=== PATIENT | male | born 1945 | race Asian ===

== ENCOUNTER 2019-04-26 06:47 | Day surgery (SDC) | payer OTHER ==
[2019-04-26 07:19] VITALS: BMI 24.2
--- NOTE | 2019-04-26 07:53 | PDOC ---
History of Present Illness - General Chief Complaint: Revisit, Lab Variance Stated Complaint: SENT BY DOCTOR Time Seen by Provider: 04/26/19 07:52 - History of Present Illness Initial Comments: 73yo M with PMH of HTN, HLD, DM, CAD s/p multiple stents, PAD s/p stents, CKD sent by his pickup driver for AV fistula placement. Patient's son at the bedside states that the last Cr was about 5. The pickup driver called the patient over the weekend and instructed him to present to the ED today. Patient's last meal was at 7am this morning. He does not have any acute complaints. Still makes urine. No fevers, chills, chest pain, or shortness of breath. PCP: Dr. Johann Deluna Veterinarian Helper: Dr. Mehdi Cartwright Past History - Past Medical History Allergies/Adverse Reactions: Allergies Allergy/AdvReac Type Severity Reaction Status Date / Time No Known Allergies Allergy Verified 04/26/19 07:18 Home Medications: Ambulatory Orders Glimepiride 2 mg PO BID 08/20/17 Amlodipine Besylate [Norvasc -] 10 mg PO DAILY tablet 08/28/17 Acetaminophen W/ Codeine #3 [Tylenol # 3 -] 1 tab PO Q6H PRN #20 tablet MDD 4 Aspirin 81 mg PO DAILY 04/26/19 Calcitriol [Calcitriol -] 0.25 mcg PO DAILY 04/26/19 Calcitriol [Calcitriol -] 0.25 mcg PO DAILY capsule 04/26/19 Calcium Acetate 667 mg PO TID 04/26/19 Famotidine [Pepcid] 20 mg PO DAILY 04/26/19 Metoprolol Succinate [Toprol XL -] 25 mg PO DAILY 04/26/19 Sodium Bicarbonate - 650 mg PO BID 04/26/19 Cardiac Disorders: Yes (stents) COPD: No Diabetes: Yes HTN: Yes Hypercholesterolemia: Yes - Surgical History Cardiac Surgery: Yes (stents x 2) - Immunization History Immunization Up to Date: No - Suicide/Smoking/Psychosocial Hx Smoking History: Never smoked Have you smoked in the past 12 months: No Information on smoking cessation initiated: No Hx Alcohol Use: No Drug/Substance Use Hx: No Substance Use Type: Alcohol Review of Systems - Review of Systems Comments:: Constitutional: no fever, no chills HEENT: no throat pain, no dysphagia Cardiovascular: no chest pain, no palpitations Respiratory: no cough, no shortness of breath Gastrointestinal: no abdominal pain, no nausea Genitourinary: no dysuria, no frequency Musculoskeletal: no myalgia, no arthralgia Skin: no rash, no itching Neurologic: no headache, no weakness *Physical Exam - Vital Signs Last Vital Signs Temp Pulse Resp BP Pulse Ox 97.9 F 69 18 159/69 100 04/26/19 07:16 04/26/19 07:16 04/26/19 07:16 04/26/19 07:16 04/26/19 07:16 - Physical Exam Comments: General: Awake, alert, and fully oriented, in no acute distress Head: No signs of trauma Eyes: EOMI, sclera anicteric ENT: Moist mucus membranes Neck: Normal ROM, supple Lungs: Lungs clear, Normal breath sounds Cardio: Regular rhythm, S1 and S2 present Abdomen: Soft, nontender Extremities: Normal range of motion, Distal pulses present SKIN: Warm, Dry, normal turgor Neurologic: Cranial nerves II through XII grossly intact. Normal speech ED Treatment Course - LABORATORY CBC & Chemistry Diagram: 04/26/19 08:13 04/26/19 08:13 Medical Decision Making - Medical Decision Making 73yo M with PMH of HTN, HLD, DM, CAD s/p multiple stents, PAD s/p stents, CKD sent by his pickup driver for AV fistula placement. Pre-op orders placed Patient is not fluid overloaded, per exam 04/26/19 07:53 Dr. Kailash Alvarez spoke with Dr. Ho. Made aware patient is here. Likely 2pm for procedure If labs indicate patient needs to be dialyzed, plan for admission 04/26/19 08:49 Dr. Alvarez had patient admitted 04/26/19 09:09 CBC WBC 8.0 K/mm3 (4.0-10.0) 04/26/19 08:13 RBC 3.45 M/mm3 (4.00-5.60) L 04/26/19 08:13 Hgb 10.0 GM/dL (11.7-16.9) L 04/26/19 08:13 Hct 30.1 % (35.4-49) L 04/26/19 08:13 MCV 87.1 fl (80-96) 04/26/19 08:13 MCH 29.0 pg (25.7-33.7) 04/26/19 08:13 MCHC 33.3 g/dl (32.0-35.9) 04/26/19 08:13 RDW 14.8 % (11.9-15.9) 04/26/19 08:13 Plt Count 159 K/MM3 (134-434) 04/26/19 08:13 MPV 8.2 fl (7.5-11.1) 04/26/19 08:13 Absolute Neuts (auto) 4.5 K/mm3 (1.5-8.0) 04/26/19 08:13 Neutrophils % 56.2 % (42.8-82.8) 04/26/19 08:13 Lymphocytes % 19.3 % (8-40) 04/26/19 08:13 Monocytes % 8.9 % (3.8-10.2) 04/26/19 08:13 Eosinophils % 14.3 % (0-4.5) H 04/26/19 08:13 Basophils % 1.3 % (0-2.0) 04/26/19 08:13 Nucleated RBC % 0 % (0-0) 04/26/19 08:13 No leukocytosis Anemia, however hgb is at baseline CMP Sodium 140 mmol/L (136-145) 04/26/19 08:13 Potassium 4.4 mmol/L (3.5-5.1) 04/26/19 08:13 Chloride 109 mmol/L (98-107) H 04/26/19 08:13 Carbon Dioxide 22 mmol/L (21-32) 04/26/19 08:13 Anion Gap 9 MMOL/L (8-16) 04/26/19 08:13 BUN 58.2 mg/dL (7-18) H 04/26/19 08:13 Creatinine 8.5 mg/dL (0.55-1.3) H* 04/26/19 08:13 Est GFR (CKD-EPI)AfAm 6.48 04/26/19 08:13 Est GFR (CKD-EPI)NonAf 5.59 04/26/19 08:13 POC Glucometer 88 UNITS (80-120) 04/26/19 18:15 Random Glucose 178 mg/dL (74-106) H 04/26/19 08:13 Calcium 8.2 mg/dL (8.5-10.1) L 04/26/19 08:13 Total Bilirubin 0.4 mg/dL (0.2-1) 04/26/19 08:13 AST 28 U/L (15-37) 04/26/19 08:13 ALT 39 U/L (13-61) 04/26/19 08:13 Alkaline Phosphatase 183 U/L (45-117) H 04/26/19 08:13 Total Protein 7.0 g/dl (6.4-8.2) 04/26/19 08:13 Albumin 3.5 g/dl (3.4-5.0) 04/26/19 08:13 Electrolytes unremarkable Cr elevated, as expected for this patient with CKD CXR with "no acute chest pathology" EKG: rate 63, QTc 464, NSR, LVH *DC/Admit/Observation/Transfer Diagnosis at time of Disposition: CKD stage 4 due to type 2 diabetes mellitus - Discharge Dispostion Condition at time of disposition: Guarded Decision to Admit order: Yes - Prescriptions - Referrals - Patient Instructions - Post Discharge Activity
--- NOTE | 2019-04-26 08:23 | PDOC ---
Attending Attestation - Resident Resident Name: Zakia Menjivar - ED Attending Attestation I have performed the following: I have examined & evaluated the patient, The case was reviewed & discussed with the resident, I agree w/resident's findings & plan, Exceptions are as noted - HPI HPI: 04/26/19 08:23 73y M hx of of CAD, dm, htn, hl, ckd, sent by renal for evaluation for possible fistula placement. pt without complaints including sob, cp, fever/chills, abd pain, cp, leg swelling or ohter complaints. GENERAL: The patient is awake, alert, and fully oriented, Nontoxic - in no acute distress. HEAD: Normocephalic, atraumatic. EYES: extraocular movements intact, sclera anicteric, conjunctiva clear. ENT: Normal voice, Moist mucous membranes. NECK: Normal range of motion, supple LUNGS: Breath sounds equal, clear to auscultation bilaterally. No wheezes, no rhonchi, no rales. HEART: Regular rate and rhythm, normal S1 and S2 without murmur, rub or gallop. ABDOMEN: Soft, nontender, No guarding, no rebound. No CVA tenderness EXTREMITIES: Normal range of motion, trace pitting edema b/l NEUROLOGICAL: No facial assymetry, Normal speech, moving all 4 extremities spontaneously and symmetrically PSYCH: Normal mood, normal affect. SKIN: Warm, Dry, normal turgor, will obtain labs will dw vascular surgery 04/26/19 12:23 labs reviewd cr elevated as expected k wnl will admit - Physicial Exam PE: 04/27/19 13:55 see above - Medical Decision Making 04/27/19 13:55 see above Heart Score/ECG Review - ECG Impressions Comment:: 04/26/19 08:57 Twelve-lead EKG was performed and reviewed by me. There is normal sinus rhythm with a normal rate. rate of 63 left ventricular hypertropy
[2019-04-26 08:58] LABS: BASO % 1.3 % (0-2.0); EOS % 14.3 % (0-4.5); HEMATOCRIT 30.1 % (35.4-49); LYMPH % 19.3 % (8-40); MCHC 33.3 g/dl (32.0-35.9); MEAN CELL VOLUME 87.1 fl (80-96); MEAN PLT VOLUME 8.2 fl (7.5-11.1); MONO % 8.9 % (3.8-10.2); NEUT % 56.2 % (42.8-82.8); PLATELET COUNT 159 K/MM3 (134-434); RBC 3.45 M/mm3 (4.00-5.60); RDW 14.8 % (11.9-15.9)
[2019-04-26 08:59] LABS: INR 1.01 (0.83-1.09); PROTHROMBIN TIME (PATIENT) 11.9 SEC (9.7-13.0)
[2019-04-26 09:02] LABS: ACTIVATED PTT 34.4 SECONDS (25.2-36.5)
[2019-04-26 09:10] LABS: ALBUMIN 3.5 g/dl (3.4-5.0); BILIRUBIN,TOTAL 0.4 mg/dL (0.2-1); BLOOD UREA NITROGEN 58.2 mg/dL (7-18); CALCIUM 8.2 mg/dL (8.5-10.1); POTASSIUM 4.4 mmol/L (3.5-5.1)
[2019-04-26 09:15] LABS: CREATININE 8.5 mg/dL (0.55-1.3)
[2019-04-26 09:18] LABS: EPI CELLS 1.4 /HPF (0-5/HPF); HYALINE CASTS 4 /lpf (0-8); URINE APPEARANCE CLEAR; URINE BACTERIA 2.4 /hpf (NEGATIVE); URINE BILIRUBIN NEGATIVE (NEGATIVE); URINE COLOR YELLOW; URINE GLUCOSE (UA) 3+ (NEGATIVE); URINE KETONE NEGATIVE (NEGATIVE); URINE LEUK ESTERASE NEGATIVE (NEGATIVE); URINE NITRITE NEGATIVE (NEGATIVE); URINE PROTEIN 3+ (NEGATIVE); URINE RBC 2 /hpf (0-4); URINE UROBILINOGEN 0.2 mg/dL (0.2-1.0); URINE WBC 1 /hpf (0-5)
--- NOTE | 2019-04-26 11:09 | EKG ---
Test Reason : Blood Pressure : / mmHG Vent. Rate : 063 BPM Atrial Rate : 063 BPM P-R Int : 146 ms QRS Dur : 080 ms QT Int : 454 ms P-R-T Axes : 060 -20 100 degrees QTc Int : 464 ms NORMAL SINUS RHYTHM POSSIBLE LEFT ATRIAL ENLARGEMENT LEFT VENTRICULAR HYPERTROPHY ABNORMAL ECG WHEN COMPARED WITH ECG OF 22-AUG-2017 22:07, COMPARED TO EKG NO SIGNIFICANT CHANGE IS FOUND Confirmed by JOSE RAFAEL PARIS, BRIEN ([id number]) on 04/26/2019 11:08:53 AM Referred By: Confirmed By:BRIEN MANTILLA MD
--- NOTE | 2019-04-26 11:39 | CONSULT ---
Consult - text type - Consultation Consultation Note: Renal consult for CKD stage 5 This is a 73 year old [place] gentleman with history of CKD stage 5 (eGFR 5), Hypertension, DM, CAD who presents for dialysis access placement. Pt was seen in the office last week, eGFR declined to 5 and was agreeable to starting dialysis this week. Pt now however does not want to start dialyiss via tunneled catheter. Denies any acute complaints, no sob, cp, abd pain, fever, chills, N/V/ D, metallic taste in the mouth. Denies any leg swelling, deins any dysuria. For OR today for AVF placement. PMHx; as above Allergies: NKDA Family Hx: NC Social Hx: No T/A/d ROS: as per HPI, all other pertinent ros negative Home Medications Medication Instructions Recorded Glimepiride 2 mg PO BID 08/20/17 Amlodipine Besylate [Norvasc -] 10 mg PO DAILY tablet 08/28/17 Aspirin 81 mg PO DAILY 04/26/19 Calcitriol [Rocaltrol -] 0.25 mcg PO DAILY 04/26/19 Calcium Acetate 667 mg PO TID 04/26/19 Famotidine [Pepcid] 20 mg PO DAILY 04/26/19 Metoprolol Succinate [Toprol XL -] 25 mg PO DAILY 04/26/19 Sodium Bicarbonate - 650 mg PO BID 04/26/19 Vital Signs Temperature 97.9 F 04/26/19 07:16 Pulse Rate 64 04/26/19 10:22 Respiratory Rate 18 04/26/19 10:22 Blood Pressure 166/74 04/26/19 10:22 O2 Sat by Pulse Oximetry (%) 100 04/26/19 10:22 Intake & Output 04/23/19 04/24/19 04/25/19 04/26/19 23:59 23:59 23:59 23:59 Weight 68.039 kg NAD awake and alert neck supple, no JVD RRR, no M/R CTA soft NT/ND No LE edema no asterxisis CBC, BMP 04/26/19 08:13 04/26/19 08:13 73 year old [place] gentleman with history of CKD stage 5 (eGFR 5), Hypertension , DM, CAD who presents for dialysis access placement. Pt was seen in the office last week, eGFR declined to 5 and was agreeable to starting dialysis this week. #CKD stage 5 not yet on dialyiss #DM #Hypertension #CKD related Anemia #AVF placement Pt at this time does not want tunneled catheter placement but will have AVF placement risks of deferring dialysis given his low eGFR was explained to him and his family, and they expressed understanding given there is no hyperkalemia, acidosis or overt uremia no emergent indication for HD at this time explained to the patient and family what are the symptoms of uremia/ hyperkalmeia and if they experience these symptoms they should come to ER case discussed with vascular surgery who will place AVF this afternoon took BP meds at home prior to coming in, trend BP inhouse Hgb stable, no need for transfusion can be discharged s/p procedure today with close office follow up Thank you Mehdi Marinelli DO
[2019-04-26] MEDS ORDERED: HEPARIN NA (PORCINE) 5,000 UNITS/ML 1ML VIAL ONE (14:01)
[2019-04-26] MEDS ORDERED: PAPAVERINE HCL 30 MG/1 ML 10 ML VIAL NR ONE (14:04)
[2019-04-26] MEDS ORDERED: LIDOCAINE HCL 1%, 10 MG/ML (20ML VIAL) ONE (14:04)
--- NOTE | 2019-04-26 14:04 | HP ---
Admitting History and Physical - Admission History of Present Illness: The patient is a 73 yo male who presents today for surgery, left arm arteriovenous fistula creation. The patient states that he has never had any dialysis sessions. He has had progressive kidney failure over the past 2 years and is a patient of Dr. Chay Harding. He denies any CP/SOB,Nausea or emesis. No fevers. He has no complaints of swelling to his lower extremities. The patient remains npo for surgery. He denies any difficulties with ambulation, numbness or tingling to his lower extremities, no h/o of ulcers/wounds to LE. The patient is right hand dominant. 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 Cardiovascular: Yes: CAD, HTN Pulmonary: No: Asthma, Sleep Apnea Gastrointestinal: Yes: Other (had colonscopy approx 6 to 7 years ago) Renal/: Yes: Renal Inusuff, BPH Heme/Onc: No: Bleeding Disorder (s/p cardiac stents several years ago s/p Right leg stent) Endocrine: Yes: Diabetes Mellitus - Smoking History Smoking history: Former smoker (Quit 5 years ago) Have you smoked in the past 12 months: No - Alcohol/Substance Use Hx Alcohol Use: No <Cleo Rosa - Last Filed: 04/26/19 15:00> Home Medications <Cleo Rosa - Last Filed: 04/26/19 15:00> <Jc Ho - Last Filed: 04/26/19 16:46> - Allergies Allergies/Adverse Reactions: Allergies Allergy/AdvReac Type Severity Reaction Status Date / Time No Known Allergies Allergy Verified 04/26/19 07:18 - Home Medications Home Medications: Ambulatory Orders Glimepiride 2 mg PO BID 08/20/17 Amlodipine Besylate [Norvasc -] 10 mg PO DAILY tablet 08/28/17 Acetaminophen W/ Codeine #3 [Tylenol # 3 -] 1 tab PO Q6H PRN #20 tablet MDD 4 Aspirin 81 mg PO DAILY 04/26/19 Calcitriol [Calcitriol -] 0.25 mcg PO DAILY 04/26/19 Calcitriol [Calcitriol -] 0.25 mcg PO DAILY capsule 04/26/19 Calcium Acetate 667 mg PO TID 04/26/19 Famotidine [Pepcid] 20 mg PO DAILY 04/26/19 Metoprolol Succinate [Toprol XL -] 25 mg PO DAILY 04/26/19 Sodium Bicarbonate - 650 mg PO BID 04/26/19 Review of Systems - Review of Systems Constitutional: denies: Chills, Fever Neck: denies: Decreased ROM, Pain on Movement Cardiovascular: denies: Chest Pain, Edema, Palpitations, Shortness of Breath Respiratory: denies: Cough, SOB Gastrointestinal: denies: Abdominal Pain, Nausea Genitourinary: denies: Burning, Dysuria, Hematuria Musculoskeletal: denies: Decreased ROM, Extremity Pain Integumentary: denies: Blister, Bruising Neurological: denies: Change in LOC, Headache, Seizure Hematology/Lymphatic: denies: Easily Bruised, Excessive Bleeding <Metzen,Cleo - Last Filed: 04/26/19 15:00> Physical Examination Vital Signs: Vital Signs Temperature 97.5 F L 04/26/19 10:00 Pulse Rate 64 04/26/19 10:22 Respiratory Rate 18 04/26/19 10:22 Blood Pressure 166/74 04/26/19 10:22 O2 Sat by Pulse Oximetry (%) 100 04/26/19 10:22 Constitutional: Yes: Well Nourished, No Distress, Calm Eyes: Yes: WNL, Conjunctiva Clear, EOM Intact HENT: Yes: WNL, Atraumatic, Normocephalic Neck: Yes: WNL, Supple, Trachea Midline Cardiovascular: Yes: WNL, Regular Rate and Rhythm Respiratory: Yes: WNL, Regular, CTA Bilaterally Gastrointestinal: Yes: WNL, Normal Bowel Sounds, Soft Extremities: No: Calf Tenderness Edema: No Peripheral Pulses WNL: Yes Peripheral Pulses: Left Radial: 2+, Right Radial: 2+, Left Doralis Pedis: 2+, Right Dorsalis Pedis: 2+, Left Femoral: 2+, Right Femoral: 2+ Neurological: Yes: WNL, Alert, Oriented Psychiatric: Yes: WNL, Alert, Oriented Labs: CBC, BMP Laboratory Tests 04/26/19 04/26/19 04/26/19 08:13 08:13 08:13 WBC 8.0 Hgb 10.0 L Hct 30.1 L Plt Count 159 PT with INR 11.90 INR 1.01 PTT (Actin FS) 34.4 Sodium 140 Potassium 4.4 Chloride 109 H Carbon Dioxide 22 Anion Gap 9 BUN 58.2 H Creatinine 8.5 H* Total Bilirubin 0.4 AST 28 ALT 39 Alkaline Phosphatase 183 H Total Protein 7.0 Albumin 3.5 Urine Color Urine Appearance Urine pH Ur Specific [place] Urine Protein Urine Glucose (UA) Urine Ketones Urine Blood Urine Nitrite Urine Bilirubin Urine Urobilinogen Ur Leukocyte Esterase 04/26/19 09:00 WBC Hgb Hct Plt Count PT with INR INR PTT (Actin FS) Sodium Potassium Chloride Carbon Dioxide Anion Gap BUN Creatinine Total Bilirubin AST ALT Alkaline Phosphatase Total Protein Albumin Urine Color Yellow Urine Appearance Clear Urine pH 7.0 Ur Specific [place] 1.016 Urine Protein 3+ H Urine Glucose (UA) 3+ H Urine Ketones Negative Urine Blood 1+ H Urine Nitrite Negative Urine Bilirubin Negative Urine Urobilinogen 0.2 Ur Leukocyte Esterase Negative <Cleo Rosa - Last Filed: 04/26/19 15:00> Vital Signs: Vital Signs Temperature 97.5 F L 04/26/19 14:09 Pulse Rate 57 L 04/26/19 14:09 Respiratory Rate 18 04/26/19 14:09 Blood Pressure 149/79 04/26/19 14:09 O2 Sat by Pulse Oximetry (%) 100 04/26/19 10:22 Labs: CBC, BMP 04/26/19 08:13 04/26/19 08:13 <Jc Ho - Last Filed: 04/26/19 16:46> Imaging - Results EKG: Image Reviewed (NSR rate, 63) <Cleo Rosa - Last Filed: 04/26/19 15:00> Assessment/Plan 73 yo male with ESRD plan for creation of left AVF today He remains npo for his surgery Left arm limb precautions D/w Dr. Ho Admission orders completed <Cleo Rosa - Last Filed: 04/26/19 15:00> Patient evaluated in office. Planned AV fistula left arm, now felt to need more urgent access. Sent to ER b Dr. Cartwright for Permacath but patient has refused. Will proceed with AV fistula creation today. <Jc Ho - Last Filed: 04/26/19 16:46>
[2019-04-26] MEDS ORDERED: PROPOFOL 20 ML ONE (15:14)
[2019-04-26] MEDS ORDERED: MIDAZOLAM HCL 2 MG/2 ML SINGLE DOSE VIAL ONE (15:14)
[2019-04-26] MEDS ORDERED: ACETAMINOPHEN 500 MG TABLET (FP) PO PRN (15:28)
[2019-04-26] MEDS ORDERED: ONDANSETRON 4 MG/2 ML VIAL IVPUSH PRN (15:28)
[2019-04-26] MEDS ORDERED: LIDOCAINE HCL 1%, 10 MG/ML (20ML VIAL) INF ONE (15:37)
[2019-04-26] MEDS ORDERED: GLIMEPIRIDE 2 MG TABLET (FP) PO SCH (16:30)
[2019-04-26] MEDS ORDERED: INSULIN SLIDING SCALE (NOVOLOG) 1 VIAL SQ SCH (16:30)
--- NOTE | 2019-04-26 16:48 | OP ---
Operative Note - Note: Operative Date: 04/26/19 Pre-Operative Diagnosis: CKD stage 5 Operation: Creation AV fistula left arm, basilic vein 1st stage Findings: Cephalic vein proximal to elbow < 2 mm' Basilic vein 4 mm in upper arm. Post-Operative Diagnosis: Same as Pre-op Surgeon: Jc Ho Area Development Consultant: Cleo Rosa Anesthesiologist/HVAC SERVICE TECH: Jamey Gotti Anesthesia: Fractional Estimated Blood Loss (mls): 20
[2019-04-26] MEDS ORDERED: DESMOPRESSIN ACETATE 4 MCG/ML AMP IVPB ONE (16:51)
--- NOTE | 2019-04-26 17:05 | SURG ---
Surgery Bolt Sorter Note Bolt Sorter: Cleo Rosa PA-C Date of Service: 04/26/19 Diagnosis: CKD stage 5 Procedure: Creation AV fistula left arm, basilic vein 1st stage I was present for the entirety of the operative procedure. For further detail, please refer to operative report. Visit type - Case Type Case Type: ED Admission - Emergency Emergency Visit: Yes Care time: The patient presented to the Emergency Department on the above date and was hospitalized for further evaluation of their emergent condition. - New patient This patient is new to me today: Yes Date on this admission: 04/26/19
[2019-04-26] MEDS ORDERED: CALCIUM ACETATE 667 MG CAPSULE (FP) PO SCH (17:30)
[2019-04-26] MEDS ORDERED: DESMOPRESSIN ACETATE 20 MCG in SODIUM CHLORIDE 50 ML IVPB ONE (17:30)
[2019-04-26 18:45] VITALS: BP 148/68; PULSE 56; TEMP 97.4
[2019-04-26] MEDS ORDERED: PT OWN MED DRAWER 7, Y5N ONE (19:22)
[2019-04-26] MEDS ORDERED: SODIUM BICARBONATE 650 MG TABLET PO SCH (22:00)
[2019-04-27] MEDS ORDERED: CALCITRIOL 0.25 MCG CAPSULE (FP) PO SCH (10:00)
[2019-04-27] MEDS ORDERED: ASPIRIN 81 MG CHEWABLE TABLETS PO SCH (10:00)
[2019-04-27] MEDS ORDERED: amLODIPine BESYLATE 10 MG TABLET (FP) PO SCH (10:00)
[2019-04-27] MEDS ORDERED: metoPROLOL SUCCINATE 25 MG TAB.SR.24H (FP) PO SCH (10:00)
[2019-04-27] MEDS ORDERED: RANITIDINE HCL 150 MG TABLET (FP) PO SCH (10:00)
--- NOTE | 2019-04-28 20:24 | OP ---
DATE OF OPERATION: 04/26/2019 SURGEON: Jc Ho MD ORNAMENTAL BRICK INSTALLER: BASHIR Santacruz PROCEDURE: Creation of arteriovenous fistula, left arm, brachial artery to basilic vein, first stage. PREOPERATIVE DIAGNOSIS: Renal failure. POSTOPERATIVE DIAGNOSIS: Renal failure. ANESTHESIA: Fractional. ANESTHESIOLOGIST: Kendrick Gotti MD OPERATIVE FINDINGS: The basilic vein in the upper arm was approximately 4 mm in diameter. There was a high bifurcation of the brachial artery with the larger branch at the elbow deep to the superficial. DESCRIPTION OF PROCEDURE: The patient was brought to the operating room. The left arm was prepped with ChloraPrep. Timeout was performed. Next, 1% lidocaine was infiltrated in the skin over the basilic vein at the elbow crease. Skin incision was made and subcutaneous tissues divided with cautery. The vein was mobilized from its bed. All side branches were ligated with silk ties and divided. The vein was ligated distally and incised. It was distended with heparin and papaverine solution. Number 5 and number 8 feeding tubes were passed proximally without resistance. The brachial artery was then exposed through an adjacent incision. This was carried down to the subcutaneous tissues. A smaller ulnar branch was retracted laterally, and the deeper artery was mobilized and secured with vessel loops. The vein was then freed and passed through a short subcutaneous tunnel to lie next to the artery. The artery was occluded with vessel loops and opened on exposed surface to 6-mm arteriotomy. The end of the vein was spatulated and anastomosed to the side of the artery with running suture of 6-0 Prolene. Prior to completion of the suture line, the artery was allowed to back bleed and flush, and the vein was flushed with heparin solution. Suture line was completed, and the vessels were released. There was good flow through the anastomosis with a palpable thrill in the vein. Bleeding from the suture line was controlled with Surgicel. When hemostasis was achieved, the wound was irrigated and closed with interrupted suture of 3-0 Vicryl and skin santosh. Sterile dressings were applied, and the patient was taken to the recovery room in stable condition. Tami PARHAM/[id number]
== END 2019-04-26 20:00 | disposition home or self-care (01) ==
LOC: JER 06:47 → JASUSAT 09:01 → J5S 10:27 → JASUSAT 20:00
PROVIDERS: ATTEND Surgery
PROC: 03180ZD Bypass Left Brachial Artery to Upper Arm Vein, Open Approach (ICD-10-PCS; principal; 2019-04-26 13:15)
DX: I12.0 Hypertensive chronic kidney disease with stage 5 chronic kidney disease or end stage renal disease (principal); E11.22 Type 2 diabetes mellitus with diabetic chronic kidney disease; N18.6 End stage renal disease; Z79.4 Long term (current) use of insulin
CPT/HCPCS: 36415; 71045-TC-FY; 80053; 81003; 82962; 85025; 85610; 85730; 86850; 86900; 86901; 87086; 93005; 93010; 94760; 99284-25; J1644; J2597

== ENCOUNTER 2019-06-24 13:28 | Day surgery (SDC) | payer OTHER ==
[2019-06-23 16:27] VITALS: BMI 23.5
[2019-06-24] MEDS ORDERED: POVIDONE-IODINE OINTMENT 10% - 28.4 GM TUBE ONE (13:33)
[2019-06-24 13:59] VITALS: BP 147/74; PULSE 66; TEMP 97.7
== END 2019-06-24 14:29 | disposition home or self-care (01) ==
LOC: JASU-SURG 13:28
PROVIDERS: ATTEND Surgery
DX: Z53.8 Procedure and treatment not carried out for other reasons (principal)
CPT/HCPCS: 82962

== ENCOUNTER 2019-06-28 14:47 | Day surgery (SDC) | payer OTHER ==
[2019-06-25 15:52] VITALS: BMI 23.5
--- NOTE | 2019-06-28 14:12 | HP ---
History & Physical Update - History History: No Change - Physical Physical: No Change - Assessment Assessment: No Change - Plan Plan: No Change (For creation AV fistula)
[2019-06-28] MEDS ORDERED: HEPARIN NA (PORCINE) 5,000 UNITS/ML 1ML VIAL ONE (15:06)
[2019-06-28] MEDS ORDERED: PAPAVERINE HCL 30 MG/1 ML 10 ML VIAL NR ONE (15:06)
[2019-06-28] MEDS ORDERED: LIDOCAINE HCL 1%, 10 MG/ML (20ML VIAL) ONE ×3 (15:07→16:54)
[2019-06-28] MEDS ORDERED: POVIDONE-IODINE OINTMENT 10% - 28.4 GM TUBE ONE (15:07)
[2019-06-28] MEDS ORDERED: MIDAZOLAM HCL 2 MG/2 ML SINGLE DOSE VIAL ONE (15:42)
[2019-06-28] MEDS ORDERED: PROPOFOL 20 ML ONE (15:42)
[2019-06-28] MEDS ORDERED: ceFAZolin SODIUM 1 GM VIAL ONE (15:44)
[2019-06-28] MEDS ORDERED: SODIUM CHLORIDE 0.9% P/F 10 ML VIAL IJ ONE (15:44)
[2019-06-28] MEDS ORDERED: LIDOCAINE HCL/PF 2% SDV 5ML VIAL ONE (15:44)
[2019-06-28] MEDS ORDERED: METOPROLOL TARTRATE 5 MG/5 ML VIAL ONE (15:59)
[2019-06-28] MEDS ORDERED: PROMETHAZINE HCL 25 MG/1 ML VIAL IVPUSH PRN (16:03)
[2019-06-28] MEDS ORDERED: ONDANSETRON 4 MG/2 ML VIAL IVPUSH PRN (16:03)
[2019-06-28] MEDS ORDERED: SODIUM CHLORIDE 1,000 ML IV SCH (16:15)
[2019-06-28] MEDS ORDERED: LIDOCAINE HCL 1%, 10 MG/ML (20ML VIAL) PNB ONE ×2 (16:19)
--- NOTE | 2019-06-28 17:15 | OP ---
Operative Note - Note: Operative Date: 06/28/19 Pre-Operative Diagnosis: Renal failure Operation: Revision AV fistula left arm Findings: Patent brachial-basilic AVF Post-Operative Diagnosis: Same as Pre-op Surgeon: Jc Ho Sensor Specialist: Cleo Rosa Anesthesiologist/SAVINGS COUNSELOR: Jordi Leggett Anesthesia: Fractional Estimated Blood Loss (mls): 20
--- NOTE | 2019-06-28 17:39 | SURG ---
Surgery Cool Roofing Installer Note Cool Roofing Installer: Cleo Rosa PA-C Date of Service: 06/28/19 Diagnosis: : Renal failure Procedure: Revision AV fistula left arm I was present for the entirety of the operative procedure. For further detail, please refer to operative report. Visit type - Case Type Case Type: Scheduled - Emergency Emergency Visit: No - New patient This patient is new to me today: Yes Date on this admission: 06/28/19
[2019-06-28 18:39] VITALS: TEMP 97.7
[2019-06-28 19:52] VITALS: BP 150/80; PULSE 74
[2019-06-28] MEDS ORDERED: INSULIN SLIDING SCALE (NOVOLOG) 1 VIAL SQ SCH (22:00)
--- NOTE | 2019-07-01 10:15 | OP ---
DATE OF OPERATION: 06/28/2019 SURGEON: Jc Ho MD CAR SALTER: BASHIR Santacruz PROCEDURE: Revision of left arm arteriovenous fistula. PREOPERATIVE DIAGNOSIS: Renal failure. POSTOPERATIVE DIAGNOSIS: Renal failure. ANESTHESIA: Fractional. ANESTHESIOLOGIST: Jordi Leggett CRNA OPERATIVE FINDINGS: The left brachial basilic fistula was patent with a diameter of between 5-6 mm. OPERATIVE PROCEDURE: Following routine patient identification with site and side verification, intravenous sedation was established. The left arm was prepped with ChloraPrep. Time-out was performed. Lidocaine 1% was infiltrated subcutaneously over the basilic vein, which had been mapped preoperatively with duplex imaging. Incision was made over the vein from the distal upper arm to the axilla. Cautery was used to hemostasis. The vein was exposed for the length of the incision with sharp dissection with care not to damage the musculocutaneous nerve, which ran alongside the vein. The vein was mobilized from its bed, and all side branches were ligated with silk ties and divided. The vein was elevated out of the wound and wrapped in moist gauze. Additional lidocaine with infiltrated over the anterior aspect of the arm and a skin flap raised. The vein was placed at the apex of the skin flap and sutured in place with interrupted sutures of 3-0 Vicryl with care not to constrict the vein. The muscle fascia was then approximated with 3-0 Vicryl and the subcutaneous tissues with the same. Skin was closed with santosh. Sterile dressing was applied. The patient was taken to the recovery room in stable condition. Tami PARHAM/[id number]
== END 2019-06-28 19:30 | disposition home or self-care (01) ==
LOC: JASU-SURG 14:47
PROVIDERS: ATTEND Surgery
PROC: 03180ZD Bypass Left Brachial Artery to Upper Arm Vein, Open Approach (ICD-10-PCS; principal; 2019-06-28 16:00)
DX: I12.0 Hypertensive chronic kidney disease with stage 5 chronic kidney disease or end stage renal disease (principal); E11.22 Type 2 diabetes mellitus with diabetic chronic kidney disease; N18.6 End stage renal disease; Z99.2 Dependence on renal dialysis
CPT/HCPCS: 82962; 94760; J1644

== ENCOUNTER 2019-07-07 08:14 | Inpatient (IN) | payer OTHER ==
[2019-07-07] MEDS ORDERED: NITROGLYCERIN 25MG/D5W 250ML 25 MG/250 ML ML IVPB ONE (08:56)
[2019-07-07] MEDS ORDERED: NITROGLYCERIN 25MG/D5W 250ML 25 MG/250 ML ML IVPB SCH (09:00)
[2019-07-07 09:14] LABS: BASO % 1.3 % (0-2.0); EOS % 8.3 % (0-4.5); HEMATOCRIT 21.6 % (35.4-49); LYMPH % 7.9 % (8-40); MCH 28.8 pg (25.7-33.7); MCHC 32.4 g/dl (32.0-35.9); MEAN CELL VOLUME 88.9 fl (80-96); MEAN PLT VOLUME 7.9 fl (7.5-11.1); MONO % 8.3 % (3.8-10.2); NEUT % 74.2 % (42.8-82.8); PLATELET COUNT 189 K/MM3 (134-434); RBC 2.43 M/mm3 (4.00-5.60); WHITE BLOOD COUNT 8.4 K/mm3 (4.0-10.0)
[2019-07-07 09:24] LABS: INR 1.06 (0.83-1.09); PROTHROMBIN TIME (PATIENT) 12.5 SEC (9.7-13.0)
[2019-07-07 09:37] LABS: ALBUMIN 3.4 g/dl (3.4-5.0); BILIRUBIN,TOTAL 0.5 mg/dL (0.2-1); BLOOD UREA NITROGEN 76.4 mg/dL (7-18); CALCIUM 8.5 mg/dL (8.5-10.1); POTASSIUM 5.7 mmol/L (3.5-5.1); TOT PROT 6.9 g/dl (6.4-8.2)
[2019-07-07] MEDS ORDERED: FUROSEMIDE 40 MG/4 ML INJECTABLE VIAL IVPUSH ONE (10:06)
--- NOTE | 2019-07-07 10:40 | PDOC ---
Documentation entered by Ann Cerrato SCRIBE, acting as scribe for Tommy Santillan MD. Tommy Santillan MD: This documentation has been prepared by the Blossom gill Sammi, SCRIBE, under my direction and personally reviewed by me in its entirety. I confirm that the documentation accurately reflects all work, treatment, procedures, and medical decision making performed by me. History of Present Illness - General Stated Complaint: Shortness of Breath Time Seen by Provider: 07/07/19 08:19 - History of Present Illness Initial Comments: 07/07/19 08:54 The patient is a 73 year old male with a PMH of HTN, DM, high cholesterol, heart disease, CKD, who presents with progressive worsening SOB since last night , worse on exertion. Patient had fistula placed to left upper arm [address] Ho. He was also informed by Dr. Cartwright that he has a Hb of 6.5. Denies chest pain. Denies fever or cough. EMS reports putting administering 3 sublingual nitroglycerin and placed the patient on CPAP. They note BPs of 180/90 & 165/78. PCP: Johann Deluna Work Car Operator: Mehdi Cartwright Past History - Past Medical History Allergies/Adverse Reactions: Allergies Allergy/AdvReac Type Severity Reaction Status Date / Time No Known Allergies Allergy Verified 07/07/19 08:20 Home Medications: Ambulatory Orders Glimepiride 2 mg PO BID 08/20/17 Amlodipine Besylate [Norvasc -] 10 mg PO DAILY tablet 08/28/17 Aspirin 81 mg PO DAILY 04/26/19 Calcitriol [Calcitriol -] 0.25 mcg PO DAILY capsule 04/26/19 Calcium Acetate 667 mg PO TID 04/26/19 Famotidine [Pepcid] 20 mg PO DAILY 04/26/19 Metoprolol Succinate [Toprol XL -] 25 mg PO DAILY 04/26/19 Sodium Bicarbonate - 650 mg PO BID 04/26/19 Insulin (Levemir) [Levemir Vial] 10 unit SQ HS 06/24/19 Oxycodone HCl 5 mg PO Q6H PRN #12 tablet MDD 4 06/28/19 Cardiac Disorders: Yes (stents, ID [id number]) COPD: No Diabetes: Yes HTN: Yes Hypercholesterolemia: Yes - Surgical History Cardiac Surgery: Yes (stents x 2) - Immunization History Immunization Up to Date: No - Suicide/Smoking/Psychosocial Hx Smoking History: Former smoker Have you smoked in the past 12 months: No If you are a former smoker, when did you quit?: 2009 Hx Alcohol Use: Yes (HISTORY) Drug/Substance Use Hx: No Substance Use Type: Alcohol Review of Systems - Review of Systems Comments:: 07/07/19 08:55 CONSTITUTIONAL: No fever, no chills, no fatigue EYES: No visual changes ENT: No ear pain, no sore throat CARDIOVASCULAR: No chest pain, no palpitations RESPIRATORY: (+)SOB. No cough GI: No abdominal pain, no nausea, no vomiting, no constipation, no diarrhea GENITOURINARY: No dysuria, no frequency, no hematuria MUSKULOSKELETAL: No backpain, no joint pain, no myalgias SKIN: No rash NEURO: No headache *Physical Exam - Vital Signs Last Vital Signs Temp Pulse Resp BP Pulse Ox 97.6 F 68 18 142/78 100 07/07/19 08:15 07/07/19 09:27 07/07/19 09:27 07/07/19 09:27 07/07/19 09:27 - Physical Exam Comments: 07/07/19 10:54 CONSTITUTIONAL: (+)tachypnea and dyspnea on arrival. Awake, alert, well nourished. HEAD: Normocephalic; atraumatic EYES: PERRL; EOM intact ENMT: External appears normal; normal oropharynx NECK: Supple; non-tender; no cervical lymphadenopathy CARD: Normal S1, S2; no murmurs, rubs, or gallops RESP: (+)diffuse rhonchi bilaterally. no wheezes or rales ABD: Soft, non-distended; non-tender; no palpable organomegaly, no palpable hernias EXT: No lower extremity edema. Normal ROM in all four extremities; non-tender to palpation; distal pulses intact SKIN: Warm, dry, no rash NEURO: No focal neurological deficiencies. Heart Score/ECG Review - ECG Impressions Comment:: 07/07/19 08:28 normal sinus rhythm T wave abnormality, consider lateral ischemia abnormal ECG ED Treatment Course - LABORATORY CBC & Chemistry Diagram: 07/07/19 08:45 07/07/19 08:45 - ADDITIONAL ORDERS Additional order review: Laboratory Results 07/07/19 07/07/19 07/07/19 08:45 08:45 08:45 PT with INR 12.50 INR 1.06 Sodium 136 Potassium 5.7 H Chloride 109 H Carbon Dioxide 19 L Anion Gap 8 BUN 76.4 H Creatinine 10.0 H* Est GFR (CKD-EPI)AfAm 5.32 Est GFR (CKD-EPI)NonAf 4.59 Random Glucose 146 H Calcium 8.5 Total Bilirubin 0.5 AST 20 ALT 19 Alkaline Phosphatase 130 H Creatine Kinase Creatine Kinase Index CK-MB (CK-2) Troponin I Total Protein 6.9 Albumin 3.4 Blood Type B POSITIVE Antibody Screen Negative Crossmatch See Detail 07/07/19 08:45 PT with INR INR Sodium Potassium Chloride Carbon Dioxide Anion Gap BUN Creatinine Est GFR (CKD-EPI)AfAm Est GFR (CKD-EPI)NonAf Random Glucose Calcium Total Bilirubin AST ALT Alkaline Phosphatase Creatine Kinase 412 H Creatine Kinase Index 2.2 CK-MB (CK-2) 9.2 H Troponin I 0.02 Total Protein Albumin Blood Type Antibody Screen Crossmatch 07/07/19 08:45 RBC 2.43 L MCV 88.9 MCHC 32.4 RDW 15.0 MPV 7.9 Neutrophils % 74.2 D Lymphocytes % 7.9 L D Monocytes % 8.3 Eosinophils % 8.3 H Basophils % 1.3 - RADIOLOGY Radiology Studies Ordered: Category Date Time Status CHEST X-RAY PORTABLE* [RAD] Stat Radiology 07/07/19 08:20 Completed Medical Decision Making - Medical Decision Making 07/07/19 10:[address] Cartwright. 07/07/19 10:35 pt is a73 y/o male with multile cmrbidities, presents with sob with exertion and at rest. pt anemic with low h&H, chest x-ray revealing pulmonary vascular congestin, cephalazation, probabale left pleural effusion. ekg is with inverted t waves in 1, aVL. 1st trop is negative. will initiate nitro drip drip to preload. will administer iv lasix-80mg, will transfuse on eunit of prbcs. sxs are likley related decompensated chf brought on by drop in hg. 07/07/19 13:09 will attempt to wean off nitro. chris administer norvasc po. *DC/Admit/Observation/Transfer Diagnosis at time of Disposition: Symptomatic anemia, Pulmonary vascular congestion, CKD (chronic kidney disease ) stage 5, GFR less than 15 ml/min - Discharge Dispostion Condition at time of disposition: Fair Decision to Admit order: Yes - Referrals - Patient Instructions - Post Discharge Activity
--- NOTE | 2019-07-07 11:16 | EKG ---
Test Reason : Blood Pressure : / mmHG Vent. Rate : 078 BPM Atrial Rate : 078 BPM P-R Int : 130 ms QRS Dur : 078 ms QT Int : 406 ms P-R-T Axes : 055 -01 117 degrees QTc Int : 462 ms POOR DATA QUALITY, INTERPRETATION MAY BE ADVERSELY AFFECTED NORMAL SINUS RHYTHM T WAVE ABNORMALITY, CONSIDER LATERAL ISCHEMIA ABNORMAL ECG WHEN COMPARED WITH ECG OF 26-APR-2019 08:45, NO SIGNIFICANT CHANGE WAS FOUND Confirmed by KAY BUENO MD ([id number]) on 07/07/2019 11:15:49 AM Referred By: Confirmed By:KAY BUENO MD
[2019-07-07] MEDS ORDERED: FUROSEMIDE 40 MG/4 ML INJECTABLE VIAL ONE (11:40)
[2019-07-07] MEDS ORDERED: amLODIPine BESYLATE 10 MG TABLET (FP) PO ONE (13:08)
[2019-07-07] MEDS ORDERED: amLODIPine BESYLATE 5 MG TABLET (FP) ONE (13:37)
--- NOTE | 2019-07-07 13:46 | CONSULT ---
Consult - text type - Consultation Consultation Note: Renal consult for CKD stage 5 This is a 73 year old [place] gentleman with history of CKD stage 5 from suspected diabetic nephropathy, CAD, hypertension, DM type 2, anemia of chronic disease who presented from home with SOB and low Hgb levels. Pt was seen in our office on Friday and was feeling well. Labs were drawn that showed Hgb of 6.7 and when discussing the result the patients family he also reported feeling short of breath. He was advised to come to the ER for further evaluation. Pt seen in the ER. Currently reports feeling a little better. Is on Nitro gtt. Was given Lasix. Currently is getting blood as well. No chest pain, fever, chills, N /V/D. No uremic symptoms. PMhx: as above Allergies: NKDA Family hx: NC Social Hx: No T/A/D ROS: as per HPI Home Medications Medication Instructions Recorded Glimepiride 2 mg PO BID 08/20/17 Amlodipine Besylate [Norvasc -] 10 mg PO DAILY tablet 08/28/17 Aspirin 81 mg PO DAILY 04/26/19 Calcitriol [Calcitriol -] 0.25 mcg PO DAILY capsule 04/26/19 Calcium Acetate 667 mg PO TID 04/26/19 Famotidine [Pepcid] 20 mg PO DAILY 04/26/19 Metoprolol Succinate [Toprol XL -] 25 mg PO DAILY 04/26/19 Sodium Bicarbonate - 650 mg PO BID 04/26/19 Insulin (Levemir) [Levemir Vial] 10 unit SQ HS 06/24/19 Oxycodone HCl 5 mg PO Q6H PRN #12 tablet MDD 4 06/28/19 Vital Signs Temperature 97.7 F 07/07/19 12:09 Pulse Rate 60 07/07/19 12:09 Respiratory Rate 16 07/07/19 12:09 Blood Pressure 151/79 07/07/19 12:09 O2 Sat by Pulse Oximetry (%) 99 07/07/19 12:09 Intake & Output 07/04/19 07/05/19 07/06/19 07/07/19 23:59 23:59 23:59 23:59 Weight 68.039 kg NAD awake and alert neck supple, no JVD RRR, no M/R Dec BS mild rales at lung base soft NT/ND no bladder distension no focal neurologic deficits CBC, BMP 07/07/19 08:45 07/07/19 08:45 Current Medications Heparin Sodium (Porcine) (Heparin -) 5,000 unit SQ Q8H-IV ROBERTA 73 year old [place] gentleman with history of CKD stage 5 from suspected diabetic nephropathy, CAD, hypertension, DM type 2, anemia of chronic disease who presented from home with SOB and low Hgb levels. 1. 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 Acute on chronic anemia 3. Hyperkalemia without EKG changes 4. Metabolic acidosis 5. Hypertension 6. CAD No emergent indication for dialysis at this time despite low eGFR will attempt medical management of fluid overload with IV lasix To titrate nitro gtt based on symptoms to get 1 unit of PRBC Repeat BMP and CBC this evening Pt has a AVF in place but is not currently mature to use. Discussed with vascular surgery who said it would take about 3 more weeks before access is ready to use. Continue oral sodium bicarb BID continue Amlodipine for hypertension. No JOSE DANIEL/ARB given low eGFR Can plan on giving IV iron and Epogen as well for management of anemia. Thank you Mehdi Cartwright DO
[2019-07-07] MEDS ORDERED: oxyCODONE HCL 5 MG TABLET PO PRN ×2 (15:11→20:43)
--- NOTE | 2019-07-07 15:16 | HP ---
<Galindo Live - Last Filed: 07/07/19 14:41> CHIEF COMPLAINT: SOB PCP: Dr. Johann Deluna Nephro: Dr. Cartwright Vascular: Dr. Ho HISTORY OF PRESENT ILLNESS: Pt is limited in Turkish. Family present at bedside who aided in history. This is a 73 y/o M with PMH ESRD with recent placement of AV fistula 2 weeks ago , CAD s/p ME and PCI w/ 5 stents 2 years ago, HTN, HLD, DM who presented to ED with complaint of SOB. Pt reportedly saw Dr. Cartwright in the office 2 days ago and had labs drawn, which revealed anemia. Today, pt was called with lab result and complained of SOB and was advised to come to ED. He was given sublingual nitro en route to ED. He was also given NIPPV prior to arrival to On arrival, he was found to be fluid overloaded with pulmonary congestion and was hypertensive. He was placed on nitro drip for optimization of preload. Plan was made to transfuse. He was seen by Dr. Cartwright. ER course was notable for: (1) as above (2) (3) Recent Travel: denies PAST MEDICAL HISTORY: as above PAST SURGICAL HISTORY: as above Social History: Smokin-3 cig / day for many years. Quit 2 years ago Alcohol: denies Drugs: denies Family History: denies Allergies No Known Allergies Allergy (Verified 07/07/19 08:20) HOME MEDICATIONS: Home Medications Medication Instructions Recorded Glimepiride 2 mg PO BID 08/20/17 Amlodipine Besylate [Norvasc -] 10 mg PO DAILY tablet 08/28/17 Aspirin 81 mg PO DAILY 04/26/19 Calcitriol [Calcitriol -] 0.25 mcg PO DAILY capsule 04/26/19 Calcium Acetate 667 mg PO TID 04/26/19 Famotidine [Pepcid] 20 mg PO DAILY 04/26/19 Metoprolol Succinate [Toprol XL -] 25 mg PO DAILY 04/26/19 Sodium Bicarbonate - 650 mg PO BID 04/26/19 Insulin (Levemir) [Levemir Vial] 10 unit SQ HS 06/24/19 Oxycodone HCl 5 mg PO Q6H PRN #12 tablet MDD 4 06/28/19 REVIEW OF SYSTEMS CONSTITUTIONAL: Absent: fever, chills, diaphoresis, generalized weakness, malaise, loss of appetite, weight change HEENT: Absent: rhinorrhea, nasal congestion, throat pain, throat swelling, difficulty swallowing, mouth swelling, ear pain, eye pain, visual changes CARDIOVASCULAR: Absent: chest pain, syncope, palpitations, irregular heart rate, lightheadedness , peripheral edema RESPIRATORY: shortness of breath Absent: cough, , dyspnea with exertion, orthopnea, wheezing, stridor, hemoptysis GASTROINTESTINAL: Absent: abdominal pain, abdominal distension, nausea, vomiting, diarrhea, constipation, melena, hematochezia GENITOURINARY: Absent: dysuria, frequency, urgency, hesitancy, hematuria, flank pain, genital pain MUSCULOSKELETAL: Absent: myalgia, arthralgia, joint swelling, back pain, neck pain SKIN: Absent: rash, itching, pallor HEMATOLOGIC/IMMUNOLOGIC: Absent: easy bleeding, easy bruising, lymphadenopathy, frequent infections ENDOCRINE: Absent: unexplained weight gain, unexplained weight loss, heat intolerance, cold intolerance NEUROLOGIC: Absent: headache, focal weakness or paresthesias, dizziness, unsteady gait, seizure, mental status changes, bladder or bowel incontinence PSYCHIATRIC: Absent: anxiety, depression, suicidal or homicidal ideation, hallucinations. PHYSICAL EXAMINATION Vital Signs - 24 hr 07/07/19 07/07/19 07/07/19 08:15 08:20 09:09 Temperature 97.6 F Pulse Rate 81 100 H Pulse Rate [ 68 Left Radial] Respiratory 22 H 18 Rate Blood Pressure 166/74 Blood Pressure 156/71 [Right Arm] O2 Sat by Pulse 98 100 100 Oximetry (%) 07/07/19 07/07/19 07/07/19 09:23 09:27 11:35 Temperature 97.6 F Pulse Rate Pulse Rate [ 66 68 67 Left Radial] Respiratory 20 18 17 Rate Blood Pressure Blood Pressure 155/74 142/78 138/73 [Right Arm] O2 Sat by Pulse 100 100 99 Oximetry (%) 07/07/19 07/07/19 07/07/19 11:45 12:09 13:43 Temperature 97.7 F 97.7 F Pulse Rate Pulse Rate [ 69 60 74 Left Radial] Respiratory 16 16 18 Rate Blood Pressure Blood Pressure 137/76 151/79 167/76 [Right Arm] O2 Sat by Pulse 100 99 98 Oximetry (%) 07/07/19 07/07/19 14:06 14:31 Temperature 97.7 F 97.9 F Pulse Rate Pulse Rate [ 70 73 Left Radial] Respiratory 17 17 Rate Blood Pressure Blood Pressure 167/69 162/71 [Right Arm] O2 Sat by Pulse 100 100 Oximetry (%) Gen: AAOx3, NAD HEENT: NCAT, EOMI Neck: supple, no jvd Cardio: rrr, normal s1s2, no mrg Pulm: bibasilar crackles Abd: soft, nondistended, nontender Ext: LUE fistula with thrill Laboratory Results - last 24 hr 07/07/19 07/07/19 07/07/19 08:45 08:45 08:45 WBC 8.4 RBC 2.43 L Hgb 7.0 L Hct 21.6 L D MCV 88.9 MCH 28.8 MCHC 32.4 RDW 15.0 Plt Count 189 MPV 7.9 Absolute Neuts (auto) 6.2 Neutrophils % 74.2 D Lymphocytes % 7.9 L D Monocytes % 8.3 Eosinophils % 8.3 H Basophils % 1.3 Nucleated RBC % 0 PT with INR INR Sodium 136 Potassium 5.7 H Chloride 109 H Carbon Dioxide 19 L Anion Gap 8 BUN 76.4 H Creatinine 10.0 H* Est GFR (CKD-EPI)AfAm 5.32 Est GFR (CKD-EPI)NonAf 4.59 Random Glucose 146 H Calcium 8.5 Total Bilirubin 0.5 AST 20 ALT 19 Alkaline Phosphatase 130 H Creatine Kinase 412 H Creatine Kinase Index 2.2 CK-MB (CK-2) 9.2 H Troponin I 0.02 Total Protein 6.9 Albumin 3.4 Blood Type Antibody Screen Crossmatch 07/07/19 07/07/19 08:45 08:45 WBC RBC Hgb Hct MCV MCH MCHC RDW Plt Count MPV Absolute Neuts (auto) Neutrophils % Lymphocytes % Monocytes % Eosinophils % Basophils % Nucleated RBC % PT with INR 12.50 INR 1.06 Sodium Potassium Chloride Carbon Dioxide Anion Gap BUN Creatinine Est GFR (CKD-EPI)AfAm Est GFR (CKD-EPI)NonAf Random Glucose Calcium Total Bilirubin AST ALT Alkaline Phosphatase Creatine Kinase Creatine Kinase Index CK-MB (CK-2) Troponin I Total Protein Albumin Blood Type B POSITIVE Antibody Screen Negative Crossmatch See Detail ASSESSMENT/PLAN: This is a 73 y/o M with PMH ESRD with recent placement of AV fistula 2 weeks ago , CAD s/p ME and PCI w/ 5 stents 2 years ago, HTN, HLD, DM who presented to ED with complaint of SOB. He is admitted requiring dialysis and transfusion. #CKD5 2/2 DM -Fluid overloaded -fistula placed 2 weeks ago with vascular. Will not be ready for 3 more weeks -Pt would need cath for any HD in the interim -Seen by Nephro. No indication for HD at this time -Will c/w lasix -taper Nitro -Na bicarb #Hyperkalemic -2/2 CKD -kayexelate #Acute on chronic normocytic anemia -? contribution from vascular surgery recently -likely 2/2 CKD -Fe studies to be drawn PRE-transfusion. Will likely need Fe supplement -considering CAD hx, will transfuse to threshold of Hb 8 -CBC post transfusion this evening #HTN -Toprol XL -Amlodipine -avoid ACEI/ARB #HLD -no statin listed in home meds -will confirm #DM -DM diet -BGM ACHS -ISS ACHS #CAD -s/p 5 stents -Metoprolol -Holding ASA in setting of anemia Visit type - Emergency Visit Emergency Visit: Yes ED Registration Date: 07/07/19 Care time: The patient presented to the Emergency Department on the above date and was hospitalized for further evaluation of their emergent condition. - New Patient This patient is new to me today: Yes Date on this admission: 07/07/19 - Critical Care Critical Care patient: No ATTENDING PHYSICIAN STATEMENT I saw and evaluated the patient. I reviewed the resident's note and discussed the case with the resident. I agree with the resident's findings and plan as documented. SUBJECTIVE: OBJECTIVE: ASSESSMENT AND PLAN: <Linus Cardoso - Last Filed: 07/07/19 17:48> Seen and examined; agree with above aside from as supplemented by myself. ATTENDING PHYSICIAN STATEMENT I saw and evaluated the patient. I reviewed the resident's note and discussed the case with the resident. I agree with the resident's findings and plan as documented. SUBJECTIVE: OBJECTIVE: ASSESSMENT AND PLAN:
[2019-07-07] MEDS ORDERED: SODIUM POLYSTYRENE SULFONATE 15 GM/60 ML BOTTLE PO ONE (15:30)
[2019-07-07 16:08] VITALS: BMI 22.6
--- NOTE | 2019-07-07 17:40 | PN ---
Teaching Attending Note Name of Resident: Galindo Live ATTENDING PHYSICIAN STATEMENT I saw and evaluated the patient. I reviewed the resident's note and discussed the case with the resident. I agree with the resident's findings and plan as documented. Seen and examined; improved from ER presentation. Patient of Dr. Cartwright'hector who has worsening CKD-V progressing to ESRD with immature fistula presenting with anemia with SOB; appears to be fluid overloaded and is diuretic naieve. No HD access as of yet but does still make urine. Mildly hyperK with no EKG changes. Given hx CAD Hb goal would be 8; will see how he responds to diuresis prior to initiating PRBC as don't want to further volume overload with the blood as we don't know how he will respond to diuretics. Did have recent surgery which would explain drop in Hb. 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 He is lasix-naieve. We will diurese and see if this improves his SOB. If this is improved will transfuse him 1 unit PRBC and consider additional lasix. Per nephrology will be ~3 weeks until fistula maturity will permit use. Active Problems include: -CVD-V (Nephrology consulted; IV diuresis, avoid JOSE DANIEL/ARB, continue home BP medication, HD when fistula matures, continue home bicarb) -Shortness of breath 2/2 fluid overload -Anemia (planning on IV iron and epogen per nephrology) -Diabetes Mellitus (SSI when inpatient) Full Code
[2019-07-07] MEDS: INSULIN SLIDING SCALE (NOVOLOG) 1 VIAL SQ SCH ×2 (18:00→21:16)
[2019-07-07] MEDS: HEPARIN NA (PORCINE) 5,000 UNITS/ML 1ML VIAL SQ SCH (18:07)
[2019-07-07] MEDS: SODIUM BICARBONATE 650 MG TABLET PO SCH (21:21)
[2019-07-07] MEDS: CALCIUM ACETATE 667 MG CAPSULE (FP) PO SCH (21:21)
[2019-07-07] MEDS: INSULIN (LEVEMIR) 100 UNITS/ML UNITS SQ SCH (21:22)
[2019-07-07 21:56] LABS: HEMATOCRIT 22.9 % (35.4-49); MCH 30.4 pg (25.7-33.7); MCHC 35.1 g/dl (32.0-35.9); MEAN CELL VOLUME 86.9 fl (80-96); MEAN PLT VOLUME 7.6 fl (7.5-11.1); PLATELET COUNT 162 K/MM3 (134-434); RBC 2.63 M/mm3 (4.00-5.60); RDW 14.7 % (11.9-15.9); WHITE BLOOD COUNT 6.6 K/mm3 (4.0-10.0)
[2019-07-07 22:30] LABS: IRON SERUM 230 ug/dL (50-175); TOTAL IRON BINDING CAPACITY 339 ug/dL (250-450)
[2019-07-07 22:36] LABS: ALBUMIN 3.4 g/dl (3.4-5.0); BILIRUBIN,TOTAL 0.8 mg/dL (0.2-1); BLOOD UREA NITROGEN 83.6 mg/dL (7-18); CALCIUM 8.7 mg/dL (8.5-10.1); POTASSIUM 4.7 mmol/L (3.5-5.1); TOT PROT 6.9 g/dl (6.4-8.2)
[2019-07-07 22:37] LABS: CREATININE 10.7 mg/dL (0.55-1.3)
[2019-07-08] MEDS: HEPARIN NA (PORCINE) 5,000 UNITS/ML 1ML VIAL SQ SCH ×3 (02:30→17:35)
[2019-07-08] MEDS: INSULIN SLIDING SCALE (NOVOLOG) 1 VIAL SQ SCH ×4 (06:28→23:02)
[2019-07-08 07:51] LABS: BASO % 1.4 % (0-2.0); EOS % 11.1 % (0-4.5); HEMATOCRIT 23.9 % (35.4-49); HEMOGLOBIN 8.3 GM/dL (11.7-16.9); LYMPH % 16.3 % (8-40); MCH 30.2 pg (25.7-33.7); MCHC 34.8 g/dl (32.0-35.9); MEAN CELL VOLUME 86.7 fl (80-96); MEAN PLT VOLUME 7.8 fl (7.5-11.1); MONO % 10.4 % (3.8-10.2); NEUT % 60.8 % (42.8-82.8); PLATELET COUNT 174 K/MM3 (134-434); RBC 2.75 M/mm3 (4.00-5.60); RDW 14.9 % (11.9-15.9)
[2019-07-08 08:26] LABS: ALBUMIN 3.3 g/dl (3.4-5.0); BILIRUBIN,TOTAL 0.7 mg/dL (0.2-1); BLOOD UREA NITROGEN 81.7 mg/dL (7-18); CALCIUM 8.4 mg/dL (8.5-10.1); POTASSIUM 4.2 mmol/L (3.5-5.1); TOT PROT 6.8 g/dl (6.4-8.2)
[2019-07-08 08:27] LABS: CREATININE 10.4 mg/dL (0.55-1.3)
--- NOTE | 2019-07-08 09:08 | PN ---
Teaching Attending Note Name of Resident: Galindo Live ATTENDING PHYSICIAN STATEMENT I saw and evaluated the patient. I reviewed the resident's note and discussed the case with the resident. I agree with the resident's findings and plan as documented. Seen and examined; off O2 and denies PND and orthopnea. Still some dyspnea but had brisk diuretic response. Strict is and os ordered but do not appear to have been documented. He is hemodynaimcally stable and afebrile. Planning to speak with his son and if clear with pre/post with RT and if OK by nephrology will plan to DC home with close followup. 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 He had brisk diuresis with IV lasix yesterday but inacurate Is and Os documented. Off O2. Hb improved post XF. HD to be initiated by Dr. Cartwright when fistula matures (~3 weeks). No active bleeding noted and the etiology of his anemia is likely chronic 2/2 underlying CKD as well as due to recent vascular surgery,. 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 per nephrology.) -Diabetes Mellitus (SSI when inpatient) Full Code
[2019-07-08] MEDS: RANITIDINE HCL 150 MG TABLET (FP) PO SCH (09:54)
[2019-07-08] MEDS: amLODIPine BESYLATE 10 MG TABLET (FP) PO SCH (09:54)
[2019-07-08] MEDS: CALCIUM ACETATE 667 MG CAPSULE (FP) PO SCH ×3 (09:54→17:35)
[2019-07-08] MEDS: CALCITRIOL 0.25 MCG CAPSULE (FP) PO SCH (09:54)
[2019-07-08] MEDS ORDERED: EPOETIN ALFA 20,000 UNIT/1 ML VIAL SQ ONE (10:00)
[2019-07-08] MEDS ORDERED: FUROSEMIDE 100 MG/10 ML INJECTABLE VIAL IVPB ONE ×2 (10:00→16:00)
[2019-07-08] MEDS ORDERED: IRON SUCROSE INJECTION 200 MG in SODIUM CHLORIDE 90 ML IVPB ONE (10:30)
[2019-07-08] MEDS: SODIUM BICARBONATE 650 MG TABLET PO SCH ×2 (11:24→22:59)
[2019-07-08] MEDS ORDERED: ACETAMINOPHEN 325 MG TABLET (FP) PO PRN (14:33)
--- NOTE | 2019-07-08 15:35 | PN ---
Progress Note (short form) - Note Progress Note: Renal follow up for CKD stage 5 and symptomatic anemia Seen and examined at the bedside awake and alert reports continues sob at rest and DRAKE has tenderness in left arm where AVF was placed no fever, chills making urine no leg swelling Vital Signs Temperature 97.9 F 07/08/19 14:00 Pulse Rate 70 07/08/19 14:00 Respiratory Rate 20 07/08/19 14:00 Blood Pressure 152/72 07/08/19 14:00 O2 Sat by Pulse Oximetry (%) 100 07/08/19 08:19 Intake & Output 07/05/19 07/06/19 07/07/19 07/08/19 23:59 23:59 23:59 23:59 Intake Total 740 630 Output Total 1180 Balance 740 -550 Weight 69.4 kg 69.4 kg NAD awake and alert RRR + rales at bilateral lung bases soft NT/ND no LE edema CBC, BMP 07/08/19 05:58 07/08/19 05:58 Current Medications Acetaminophen (Tylenol -) 650 mg PO Q4H PRN PRN Reason: PAIN Last Admin: 07/08/19 15:00 Dose: 650 mg Amlodipine Besylate (Norvasc -) 10 mg PO DAILY [facility] Last Admin: 07/08/19 09:54 Dose: 10 mg Calcitriol (Rocaltrol -) 0.25 mcg PO DAILY ROBERTA Last Admin: 07/08/19 09:54 Dose: 0.25 mcg Calcium Acetate (Phoslo -) 667 mg PO TIDCM [facility] Last Admin: 07/08/19 12:02 Dose: 667 mg Furosemide (Lasix Injection -) 120 mg IVPB ONCE ONE Stop: 07/08/19 16:01 Last Admin: 07/08/19 15:21 Dose: 120 mg Heparin Sodium (Porcine) (Heparin -) 5,000 unit SQ Q8H-IV ROBERTA Last Admin: 07/08/19 09:54 Dose: 5,000 unit Insulin Aspart (Novolog Vial Sliding Scale -) 0 vial SQ ACHS [facility]; Protocol Last Admin: 07/08/19 12:03 Dose: Not Given Insulin Detemir (Levemir Vial) 10 units SQ HS [facility] Last Admin: 07/07/19 21:22 Dose: 10 units Metoprolol Succinate (Toprol Xl -) 25 mg PO DAILY [facility] Last Admin: 07/08/19 09:54 Dose: 25 mg Oxycodone HCl (Roxicodone -) 5 mg PO Q6H PRN PRN Reason: PAIN LEVEL 6-10 Ranitidine HCl (Zantac -) 150 mg PO DAILY [facility] Last Admin: 07/08/19 09:54 Dose: 150 mg Sodium Bicarbonate (Sodium Bicarbonate -) 650 mg PO BID [facility] Last Admin: 07/08/19 11:24 Dose: 650 mg 73 year old [place] gentleman with history of CKD stage 5 from suspected diabetic nephropathy, CAD, hypertension, DM type 2, anemia of chronic disease who presented from home with SOB and low Hgb levels. 1. 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 Acute on chronic anemia 3. Hyperkalemia without EKG changes 4. Metabolic acidosis 5. Hypertension 6. CAD Renal function unchanged. Hgb improved s/p transfusion. Hyperkalemia now resolved no emergent indication for dialysis. Will give additional 120mg of IV lasix today if pt does not respond well to diuretics may need to consider starting renal replacement therapy will consult vascular surgery to access AVF site Renal diet, 2g salt restriction s/p Venofer and ADDIE this AM Thank you Mehdi Cartwright DO
--- NOTE | 2019-07-08 15:37 | PN ---
Progress Note (short form) - Note Progress Note: 73yo M s/p LUE AV fistula 07/08/19, was admitted to the hospital for fluid overload. Vascular was consulted because pt complaining of Lt arm pain around incision since the surgery. Pt denies any worsening pain or swelling. Pt no currently on HD. Denies fever, chills, n/v. Last Vital Signs Temp Pulse Resp BP Pulse Ox 97.9 F 70 20 152/72 100 07/08/19 14:00 07/08/19 14:00 07/08/19 14:00 07/08/19 14:00 07/08/19 08:19 CBC, BMP 07/08/19 05:58 07/08/19 05:58 PE; Gen: A&O x3 Resp: breathing comfortably LUE: AV graft in place with good thrill, incision is clean with no erythema or discharge, mild tenderness with palpation. +2 radial pulse <Jerel Redd - Last Filed: 07/08/19 15:29> - Note Progress Note: Recent revision of AV Fistula left upper arm to exteriorize basilic vein. He has superficial edema of the skin flap without evidence for infection. Incision is clean and dry. Bruit in fistula. Recommend arm elevation, avoid tight wraps. I will follow in my office. <Jc Ho - Last Filed: 07/08/19 17:56> Problem List - Problems (1) CKD (chronic kidney disease) stage 5, GFR less than 15 ml/min Assessment/Plan: Plan -AV fistula site does not appear infected, will discuss with Dr. Ho Code(s): N18.5 - CHRONIC KIDNEY DISEASE, STAGE 5 <Jerel Redd - Last Filed: 07/08/19 15:29>
--- NOTE | 2019-07-08 21:09 | PN ---
<Galindo Live - Last Filed: 07/08/19 21:05> Physical Exam: SUBJECTIVE: Patient seen and examined OBJECTIVE: Vital Signs Period Temp Pulse Resp BP Sys/Pratt Pulse Ox Last 24 Hr 97.9 F-98.5 F 68-84 18-20 140-159/69-77 100 Gen: AAOx3, NAD HEENT: NCAT, EOMI Neck: supple, no jvd Cardio: rrr, normal s1s2, no mrg Pulm: bibasilar crackles Abd: soft, nondistended, nontender Ext: LUE fistula with thrill Laboratory Results - last 24 hr 07/07/19 07/07/19 07/07/19 21:14 21:20 21:20 WBC 6.6 RBC 2.63 L Hgb 8.0 L Hct 22.9 L MCV 86.9 MCH 30.4 MCHC 35.1 RDW 14.7 Plt Count 162 MPV 7.6 Absolute Neuts (auto) Neutrophils % Lymphocytes % Monocytes % Eosinophils % Basophils % Nucleated RBC % Sodium 139 Potassium 4.7 Chloride 111 H Carbon Dioxide 21 Anion Gap 8 BUN 83.6 H Creatinine 10.7 H* Est GFR (CKD-EPI)AfAm 4.91 Est GFR (CKD-EPI)NonAf 4.23 POC Glucometer 99 Random Glucose 96 Calcium 8.7 Iron TIBC Iron Saturation Unsaturated IBC Ferritin Total Bilirubin 0.8 AST 18 ALT 20 Alkaline Phosphatase 131 H Total Protein 6.9 Albumin 3.4 07/07/19 07/07/19 07/08/19 21:20 21:20 05:58 WBC 7.0 RBC 2.75 L Hgb 8.3 L Hct 23.9 L MCV 86.7 MCH 30.2 MCHC 34.8 RDW 14.9 Plt Count 174 MPV 7.8 Absolute Neuts (auto) 4.2 Neutrophils % 60.8 Lymphocytes % 16.3 D Monocytes % 10.4 H Eosinophils % 11.1 H Basophils % 1.4 Nucleated RBC % 0 Sodium Potassium Chloride Carbon Dioxide Anion Gap BUN Creatinine Est GFR (CKD-EPI)AfAm Est GFR (CKD-EPI)NonAf POC Glucometer Random Glucose Calcium Iron 230 H 233 H TIBC 339 Iron Saturation 67 H Unsaturated IBC 109 L Ferritin 71.0 Total Bilirubin AST ALT Alkaline Phosphatase Total Protein Albumin 07/08/19 07/08/19 07/08/19 05:58 06:03 11:54 WBC RBC Hgb Hct MCV MCH MCHC RDW Plt Count MPV Absolute Neuts (auto) Neutrophils % Lymphocytes % Monocytes % Eosinophils % Basophils % Nucleated RBC % Sodium 141 Potassium 4.2 Chloride 109 H Carbon Dioxide 21 Anion Gap 11 BUN 81.7 H Creatinine 10.4 H* Est GFR (CKD-EPI)AfAm 5.08 Est GFR (CKD-EPI)NonAf 4.38 POC Glucometer 52 88 Random Glucose 60 L Calcium 8.4 L Iron TIBC Iron Saturation Unsaturated IBC Ferritin Total Bilirubin 0.7 AST 19 ALT 17 Alkaline Phosphatase 123 H Total Protein 6.8 Albumin 3.3 L 07/08/19 17:30 WBC RBC Hgb Hct MCV MCH MCHC RDW Plt Count MPV Absolute Neuts (auto) Neutrophils % Lymphocytes % Monocytes % Eosinophils % Basophils % Nucleated RBC % Sodium Potassium Chloride Carbon Dioxide Anion Gap BUN Creatinine Est GFR (CKD-EPI)AfAm Est GFR (CKD-EPI)NonAf POC Glucometer 145 Random Glucose Calcium Iron TIBC Iron Saturation Unsaturated IBC Ferritin Total Bilirubin AST ALT Alkaline Phosphatase Total Protein Albumin Active Medications Generic Name Dose Route Start Last Admin Trade Name Freq PRN Reason Stop Dose Admin Acetaminophen 650 mg 07/08/19 14:33 07/08/19 15:00 Tylenol - PO 650 mg Q4H PRN Administration PAIN Amlodipine Besylate 10 mg 07/08/19 10:00 07/08/19 09:54 Norvasc - PO 10 mg DAILY ROBERTA Administration Calcitriol 0.25 mcg 07/08/19 10:00 07/08/19 09:54 Rocaltrol - PO 0.25 mcg DAILY ROBERTA Administration Calcium Acetate 667 mg 07/07/19 22:00 07/08/19 17:35 Phoslo - PO 667 mg TIDCM ROBERTA Administration Heparin Sodium (Porcine) 5,000 unit 07/07/19 18:00 07/08/19 17:35 Heparin - SQ 5,000 unit Q8H-IV ROBERTA Administration Insulin Aspart 0 vial 07/07/19 16:30 07/08/19 17:35 Novolog Vial Sliding Scale - SQ Not Given ACHS [facility] Protocol Insulin Detemir 10 units 07/07/19 22:00 07/07/19 21:22 Levemir Vial SQ 10 units HS ROBERTA Administration Metoprolol Succinate 25 mg 07/08/19 10:00 07/08/19 09:54 Toprol Xl - PO 25 mg DAILY ROBERTA Administration Oxycodone HCl 5 mg 07/07/19 20:43 Roxicodone - PO Q6H PRN PAIN LEVEL 6-10 Ranitidine HCl 150 mg 07/08/19 10:00 07/08/19 09:54 Zantac - PO 150 mg DAILY ROBERTA Administration Sodium Bicarbonate 650 mg 07/07/19 22:00 07/08/19 11:24 Sodium Bicarbonate - PO 650 mg BID ROBERTA Administration ASSESSMENT/PLAN: This is a 73 y/o M with PMH ESRD with recent placement of AV fistula 2 weeks ago , CAD s/p [place] and PCI w/ 5 stents 2 years ago, HTN, HLD, DM who presented to ED with complaint of SOB. He is admitted requiring dialysis and transfusion. #CKD5 2/2 DM -Fluid overloaded -fistula placed 2 weeks ago with vascular. Will not be ready for 3 more weeks -Pt would need cath for any HD in the interim -Seen by Nephro. No indication for HD at this time -lasix -Na bicarb #Hyperkalemic -2/2 CKD -kayexelate #Acute on chronic normocytic anemia -? contribution from vascular surgery recently -likely 2/2 CKD -Fe studies to be drawn PRE-transfusion. Will likely need Fe supplement -considering CAD hx, will transfuse to threshold of Hb 8 #HTN -Toprol XL -Amlodipine -avoid ACEI/ARB #HLD -no statin listed in home meds -will confirm #DM -DM diet -BGM ACHS -ISS ACHS #CAD -s/p 5 stents -Metoprolol -Holding ASA in setting of anemia Visit type - Emergency Visit Emergency Visit: No - New Patient This patient is new to me today: No - Critical Care Critical Care patient: No ATTENDING PHYSICIAN STATEMENT I saw and evaluated the patient. I reviewed the resident's note and discussed the case with the resident. I agree with the resident's findings and plan as documented. SUBJECTIVE: OBJECTIVE: ASSESSMENT AND PLAN: <Linus Cardoso - Last Filed: 07/09/19 14:48> Physical Exam: Seen and examined; verified all bonilla parts of history and physical exam. Please see my own documentation for any additional information. Thank you. ATTENDING PHYSICIAN STATEMENT I saw and evaluated the patient. I reviewed the resident's note and discussed the case with the resident. I agree with the resident's findings and plan as documented. SUBJECTIVE: OBJECTIVE: ASSESSMENT AND PLAN:
[2019-07-08] MEDS: INSULIN (LEVEMIR) 100 UNITS/ML UNITS SQ SCH (23:02)
[2019-07-09] MEDS: HEPARIN NA (PORCINE) 5,000 UNITS/ML 1ML VIAL SQ SCH ×2 (03:30→09:15)
[2019-07-09] MEDS: INSULIN SLIDING SCALE (NOVOLOG) 1 VIAL SQ SCH ×3 (06:20→16:42)
[2019-07-09 07:41] LABS: BLOOD UREA NITROGEN 88.5 mg/dL (7-18); CALCIUM 8.3 mg/dL (8.5-10.1); MAGNESIUM 1.9 mg/dL (1.8-2.4)
[2019-07-09 07:49] LABS: CREATININE 10.6 mg/dL (0.55-1.3)
[2019-07-09 07:55] LABS: EOS % 12.2 % (0-4.5); HEMATOCRIT 25.1 % (35.4-49); HEMOGLOBIN 8.6 GM/dL (11.7-16.9); LYMPH % 17.7 % (8-40); MCH 29.7 pg (25.7-33.7); MCHC 34.3 g/dl (32.0-35.9); MEAN CELL VOLUME 86.5 fl (80-96); MEAN PLT VOLUME 7.8 fl (7.5-11.1); MONO % 12.1 % (3.8-10.2); PLATELET COUNT 180 K/MM3 (134-434); RBC 2.91 M/mm3 (4.00-5.60); RDW 15.1 % (11.9-15.9); WHITE BLOOD COUNT 6.8 K/mm3 (4.0-10.0)
[2019-07-09] MEDS: CALCIUM ACETATE 667 MG CAPSULE (FP) PO SCH ×2 (08:07→12:05)
[2019-07-09] MEDS: SODIUM BICARBONATE 650 MG TABLET PO SCH (09:15)
[2019-07-09] MEDS: CALCITRIOL 0.25 MCG CAPSULE (FP) PO SCH (09:15)
[2019-07-09] MEDS: amLODIPine BESYLATE 10 MG TABLET (FP) PO SCH (09:15)
[2019-07-09] MEDS: RANITIDINE HCL 150 MG TABLET (FP) PO SCH (09:15)
[2019-07-09 11:20] LABS: ANISOCYTOSIS 1+; MACROCYTOSIS 1+; OVALOCYTE 1+; PLATELET ESTIMATE NORMAL
[2019-07-09] MEDS ORDERED: IRON SUCROSE INJECTION 200 MG in SODIUM CHLORIDE 90 ML IVPB ONE (12:30)
[2019-07-09] MEDS ORDERED: FUROSEMIDE 100 MG/10 ML INJECTABLE VIAL IVPB ONE (13:52)
--- NOTE | 2019-07-09 14:47 | PN ---
Teaching Attending Note Name of Resident: Galindo Live ATTENDING PHYSICIAN STATEMENT I saw and evaluated the patient. I reviewed the resident's note and discussed the case with the resident. I agree with the resident's findings and plan as documented. Discussed with nephrology; OK to discharge home today on torsemide 100 BID with close followup with nephrology clinic. Seen by vascular and DC is approved by all services. Personally completed pre and post; no new issues ambulating with >100 feet traversed. 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 He had brisk diuresis with IV lasix yesterday but inacurate Is and Os documented. Off O2. Hb improved post XF. HD to be initiated by Dr. Cartwright when fistula matures (~3 weeks). No active bleeding noted and the etiology of his anemia is likely chronic 2/2 underlying CKD as well as due to recent vascular surgery. Vascular surgery cleared him to return home, as did nephrology. He will be discharged home on torsemide 100mg PO BID with close followup with the nephrology clinic. He is stable and has benefitted maximally from this hospitalization. 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 per nephrology.) -Diabetes Mellitus (SSI when inpatient) New Medications: -torsemide 100mg PO BID Followup Labs: -BMP, Mg, Phos within 3-5 days Followup Visits: -PCP 3-5 days -Nephrology at scheduled appointment discussed with Dr. Cartwright -Vascular elizabeth as scheduled
--- NOTE | 2019-07-09 15:19 | PN ---
Progress Note (short form) - Note Progress Note: Renal follow up for CKD stage 5 and symptomatic anemia Seen and examined at the bedside feels much better making more urine overnight no chest pain, fever, chills able to ambulate w/o significant dyspnea no N/V/D Vital Signs Temperature 98.2 F 07/09/19 08:25 Pulse Rate 79 07/09/19 08:25 Respiratory Rate 20 07/09/19 08:28 Blood Pressure 155/74 07/09/19 08:25 O2 Sat by Pulse Oximetry (%) 100 07/09/19 08:28 Intake & Output 07/06/19 07/07/19 07/08/19 07/09/19 23:59 23:59 23:59 23:59 Intake Total 740 870 200 Output Total 1180 Balance 740 -310 200 Weight 69.4 kg 69.4 kg 69.581 kg NAD awake and alert RRR + rales at bilateral lung bases soft NT/ND no LE edema CBC, BMP 07/09/19 05:15 07/09/19 05:15 Current Medications Acetaminophen (Tylenol -) 650 mg PO Q4H PRN PRN Reason: PAIN Last Admin: 07/08/19 15:00 Dose: 650 mg Amlodipine Besylate (Norvasc -) 10 mg PO DAILY [facility] Last Admin: 07/09/19 09:15 Dose: 10 mg Calcitriol (Rocaltrol -) 0.25 mcg PO DAILY ROBERTA Last Admin: 07/09/19 09:15 Dose: 0.25 mcg Calcium Acetate (Phoslo -) 667 mg PO TIDCM [facility] Last Admin: 07/09/19 12:05 Dose: 667 mg Heparin Sodium (Porcine) (Heparin -) 5,000 unit SQ Q8H-IV ROBERTA Last Admin: 07/09/19 09:15 Dose: 5,000 unit Insulin Aspart (Novolog Vial Sliding Scale -) 0 vial SQ ACHS [facility]; Protocol Last Admin: 07/09/19 11:59 Dose: Not Given Insulin Detemir (Levemir Vial) 10 units SQ HS [facility] Last Admin: 07/08/19 23:02 Dose: Not Given Metoprolol Succinate (Toprol Xl -) 25 mg PO DAILY [facility] Last Admin: 07/09/19 09:15 Dose: 25 mg Oxycodone HCl (Roxicodone -) 5 mg PO Q6H PRN PRN Reason: PAIN LEVEL 6-10 Ranitidine HCl (Zantac -) 150 mg PO DAILY [facility] Last Admin: 07/09/19 09:15 Dose: 150 mg Sodium Bicarbonate (Sodium Bicarbonate -) 650 mg PO BID [facility] Last Admin: 07/09/19 09:15 Dose: 650 mg 73 year old [place] gentleman with history of CKD stage 5 from suspected diabetic nephropathy, CAD, hypertension, DM type 2, anemia of chronic disease who presented from home with SOB and low Hgb levels. 1. 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 Acute on chronic anemia 3. Hyperkalemia without EKG changes 4. Metabolic acidosis 5. Hypertension 6. CAD Renal function stable, no overt uremia/hyperkalemia or acidosis. Will defer dialysis until AVF is ready to use Should be discharged home on Torsemide 100mg BID (7am, 3pm) Continue Sodium bicarb should follow low K, low Na diet Continue calcium acetate TID with meals will be seen in our office next week will give Lasix 120mg IV this afternoon Venofer 200mg to be given today as well. Thank you Mehdi Cartwright DO
[2019-07-09 15:54] VITALS: BP 137/72; PULSE 66; TEMP 98.1
--- NOTE | 2019-07-09 16:17 | DS ---
Physical Exam: SUBJECTIVE: Patient seen and examined. Feels better. OBJECTIVE: Vital Signs Period Temp Pulse Resp BP Sys/Pratt Pulse Ox Last 24 Hr 97.9 F-98.2 F 66-82 20-20 137-159/69-78 100-100 PHYSICAL EXAM Gen: AAOx3, NAD HEENT: NCAT, EOMI Neck: supple, no jvd Cardio: rrr, normal s1s2, no mrg Pulm: bibasilar crackles Abd: soft, nondistended, nontender Ext: LUE fistula with thrill LABS Laboratory Results - last 24 hr 07/08/19 07/08/19 07/09/19 17:30 23:00 05:15 WBC 6.8 RBC 2.91 L Hgb 8.6 L Hct 25.1 L MCV 86.5 MCH 29.7 MCHC 34.3 RDW 15.1 Plt Count 180 MPV 7.8 Absolute Neuts (auto) 3.9 Neutrophils % 57.0 Neutrophils % (Manual) 59.0 Band Neutrophils % 0.0 Lymphocytes % 17.7 Lymphocytes % (Manual) 21.0 Monocytes % 12.1 H Monocytes % (Manual) 8 Eosinophils % 12.2 H Eosinophils % (Manual) 10.0 H Basophils % 1.0 Basophils % (Manual) 0.0 Myelocytes % (Man) 1 Promyelocytes % (Man) 0 Blast Cells % (Manual) 0 Nucleated RBC % 0 Metamyelocytes 0 Hypochromia 0 Platelet Estimate Normal Polychromasia 1+ Poikilocytosis 0 Anisocytosis 1+ Microcytosis 1+ Macrocytosis 1+ Spherocytes 1+ Ovalocytes 1+ Sodium Potassium Chloride Carbon Dioxide Anion Gap BUN Creatinine Est GFR (CKD-EPI)AfAm Est GFR (CKD-EPI)NonAf POC Glucometer 145 112 Random Glucose Calcium Phosphorus Magnesium 07/09/19 07/09/19 07/09/19 05:15 06:19 11:54 WBC RBC Hgb Hct MCV MCH MCHC RDW Plt Count MPV Absolute Neuts (auto) Neutrophils % Neutrophils % (Manual) Band Neutrophils % Lymphocytes % Lymphocytes % (Manual) Monocytes % Monocytes % (Manual) Eosinophils % Eosinophils % (Manual) Basophils % Basophils % (Manual) Myelocytes % (Man) Promyelocytes % (Man) Blast Cells % (Manual) Nucleated RBC % Metamyelocytes Hypochromia Platelet Estimate Polychromasia Poikilocytosis Anisocytosis Microcytosis Macrocytosis Spherocytes Ovalocytes Sodium 139 Potassium 4.0 Chloride 105 Carbon Dioxide 20 L Anion Gap 14 BUN 88.5 H Creatinine 10.6 H* Est GFR (CKD-EPI)AfAm 4.96 Est GFR (CKD-EPI)NonAf 4.28 POC Glucometer 91 138 Random Glucose 84 Calcium 8.3 L Phosphorus 5.0 H Magnesium 1.9 HOSPITAL COURSE: Date of Admission:07/07/19 Date of Discharge: 07/09/19 This is a 73 y/o M with PMH ESRD with recent placement of AV fistula 2 weeks ago , CAD s/p [place] and PCI w/ 5 stents 2 years ago, HTN, HLD, DM who presented to ED with complaint of SOB. He is admitted requiring dialysis and transfusion. Pt has known CKD5 2/2 DM. He came in with fluid overload for which he was given aggressive IV diuresis. Pt did not require HD this visit. He was seen by Nephrology. He had a fistula placed 2 weeks ago with vascular. It will not be ready for 3 more weeks. Pt's Hyperkalemia 2/2 CKD was treated with kayexelate. Pt had acute on chronic normocytic anemia with possible contribution from vascular surgery recently as well as CKD. He received 1 PRBC. Pt's HTN was treated with Toprol XL and Amlodipine. His DM was treated with Ins while he was in patient. His CAD was treated with Metoprolol. ASA was held in setting of anemia Minutes to complete discharge: 30 Discharge Summary Reason For Visit: PULMONARY VENOUS CONGESTION Current Active Problems CKD (chronic kidney disease) stage 5, GFR less than 15 ml/min (Acute) Pulmonary vascular congestion (Acute) Symptomatic anemia (Acute) Condition: Good - Instructions Diet, Activity, Other Instructions: You were in the hospital because of fluid overload and anemia. You will need to follow up with the following doctors: Dr. Johann Deluna, primary care doctor in 3-[address] Cartwright, nephrology within [address] Ho, vascular surgery within 1-2 weeks. You are being sent home with torsemide 100mg twice daily. Continue taking your old medications as before. If your symptoms get worse, return to the emergency department. Referrals: Mehdi Cartwright MD [Staff Physician] - 07/12/19 Jc Ho MD [Staff Physician] - 1 Week Disposition: HOME - Home Medications Comprehensive Discharge Medication List: Ambulatory Orders Glimepiride 2 mg PO BID 08/20/17 Amlodipine Besylate [Norvasc -] 10 mg PO DAILY tablet 08/28/17 Aspirin 81 mg PO DAILY 04/26/19 Calcitriol [Calcitriol -] 0.25 mcg PO DAILY capsule 04/26/19 Calcium Acetate 667 mg PO TID 04/26/19 Famotidine [Pepcid] 20 mg PO DAILY 04/26/19 Metoprolol Succinate [Toprol XL -] 25 mg PO DAILY 04/26/19 Sodium Bicarbonate - 650 mg PO BID 04/26/19 Insulin (Levemir) [Levemir Vial] 10 unit SQ HS 06/24/19 Oxycodone HCl 5 mg PO Q6H PRN #12 tablet MDD 4 06/28/19 Torsemide 100 mg PO BID #60 tablet 07/09/19 This patient is new to me today: No Emergency Visit: No Critical Care patient: No - Discharge Referral [facility]erred [facility] Med [facility] No ATTENDING PHYSICIAN STATEMENT I saw and evaluated the patient. I reviewed the resident's note and discussed the case with the resident. I agree with the resident's findings and plan as documented. SUBJECTIVE: OBJECTIVE: ASSESSMENT AND PLAN:
[2019-07-10 07:09] LABS: ERYTHROPOIETIN 13.1 mIU/mL (2.6-18.5)
== END 2019-07-09 17:33 | disposition home or self-care (01) | DRG 682 ==
LOC: JER 08:14 → JERBED 10:40 → J4W 15:25
PROVIDERS: ADMIT Internal Medicine; ATTEND Internal Medicine
PROC: 30233N1 Transfusion of Nonautologous Red Blood Cells into Peripheral Vein, Percutaneous Approach (ICD-10-PCS; principal; 2019-07-07)
DX: I12.0 Hypertensive chronic kidney disease with stage 5 chronic kidney disease or end stage renal disease (principal); N18.6 End stage renal disease; E87.2 Acidosis; I25.10 Atherosclerotic heart disease of native coronary artery without angina pectoris; E87.70 Fluid overload, unspecified; E11.22 Type 2 diabetes mellitus with diabetic chronic kidney disease; E11.21 Type 2 diabetes mellitus with diabetic nephropathy; E87.5 Hyperkalemia; I25.2 Old myocardial infarction; D63.1 Anemia in chronic kidney disease; Z79.4 Long term (current) use of insulin
CPT/HCPCS: 36415; 36430; 36511; 71045-TC-FY; 80048; 80053; 82306; 82550; 82553; 82668; 82728; 82962; 83540; 83550; 83735; 84100; 84466; 84484; 85025; 85027; 85610; 86850; 86900; 86901; 86922; 93005; 93010; 99285-25; J0885; J1644; J1756; P9038; P9058

== ENCOUNTER 2019-08-23 07:15 | Inpatient (IN) | payer OTHER ==
--- NOTE | 2019-08-23 08:19 | PDOC ---
History of Present Illness - General Chief Complaint: Shortness of Breath Stated Complaint: PCP SENT,SHORTNESS OF BREATH Time Seen by Provider: 08/23/19 07:51 - History of Present Illness Initial Comments: 08/23/19 08:19 HPI: 73 y/o M with hx of ESRD with AV fistula pkaced 2 months ago, CAD c/b [place] s/p PCI w/ 5 stents 2 years ago, HTN, HLD, DM who presents to ED with complaint of SOB. He states his symptoms started 1 week ago and initially with exertion. However, he spoke to his renal doctor 3 days ago and was told to come in to the ED. Over the past 2 days, his dyspnea has worsened and is now present at rest. He only takes torsemide 100mg as needed and took it yesterday with no improvement in symptoms. He also reports chronic nonproductive cough which hasnt changed. Also reports stable swelling of his lower legs. Patient denies fever, chills, MURRIETA, chest pain, palpitations, abdominal pain, nausea, vomiting, diarrhea, constipation, dysuria, lightheadedness, weakness, sensory changes. Of note, patient is expected to begin dialysis according to son PMHx: as noted above ROS: as noted SHx: Denies tobacco use; no alcohol use; no rec drugs Allergies: NKDA Renal: Mehdi Cartwright [phone] ROS: GENERAL/CONSTITUTIONAL: No fever or chills. No weakness. HEAD, EYES, EARS, NOSE AND THROAT: No change in vision. No ear pain or discharge. No sore throat. CARDIOVASCULAR: +shortness of breath RESPIRATORY: No wheezing, or hemoptysis. GASTROINTESTINAL: No nausea, vomiting, diarrhea or constipation. GENITOURINARY: No dysuria, frequency, or change in urination. MUSCULOSKELETAL: No joint or muscle swelling or pain. No neck or back pain. SKIN: No rash NEUROLOGIC: No headache, vertigo, loss of consciousness, or change in strength/ sensation. ENDOCRINE: No increased thirst. No abnormal weight change HEMATOLOGIC/LYMPHATIC: No anemia, easy bleeding, or history of blood clots. ALLERGIC/IMMUNOLOGIC: No hives or skin allergy. PE: GENERAL: Awake, alert, and fully oriented, no acute distress HEAD: No signs of trauma, normocephalic, atraumatic EYES: EOMI, sclera anicteric, conjunctiva clear ENT: Auricles normal inspection, hearing grossly normal, nares patent, oropharynx clear without exudates. Moist mucosa NECK: Normal ROM, no lymphadenopathy LUNGS: No increased work of breathing, symmetrical chest rise, +crackle in LLL, no wheezes or rhonchi HEART: Regular rate and rhythm, normal S1 and S2, no murmurs, peripheral pulses 2+ and equal bilaterally, no JVD or hepatojugular reflec, 1+ pitting edema BL LE distal to midshin ABDOMEN: Soft, nondistended, nontender, normoactive bowel sounds. No guarding, no rebound. No masses EXTREMITIES: Normal inspection, Normal range of motion, no edema. No clubbing or cyanosis. NEUROLOGICAL: Cranial nerves II through XII grossly intact. Normal speech, normal gait, no focal sensorimotor deficits SKIN: Warm, Dry, normal turgor, no rashes or lesions noted Past History - Past Medical History Allergies/Adverse Reactions: Allergies Allergy/AdvReac Type Severity Reaction Status Date / Time No Known Allergies Allergy Verified 08/23/19 07:30 Home Medications: Ambulatory Orders Glimepiride 2 mg PO BID 08/20/17 Amlodipine Besylate [Norvasc -] 10 mg PO DAILY tablet 08/28/17 Aspirin 81 mg PO DAILY 04/26/19 Calcitriol [Calcitriol -] 0.25 mcg PO DAILY capsule 04/26/19 Calcium Acetate 667 mg PO TID 04/26/19 Famotidine [Pepcid] 20 mg PO DAILY 04/26/19 Metoprolol Succinate [Toprol XL -] 25 mg PO DAILY 04/26/19 Sodium Bicarbonate - 650 mg PO BID 04/26/19 Insulin (Levemir) [Levemir Vial] 12 unit SQ HS 06/24/19 Atorvastatin Ca [Lipitor] 40 mg PO HS 08/23/19 Torsemide 100 mg PO DAILY PRN 08/23/19 Anemia: Yes Cardiac Disorders: Yes (stents, [place] 2018) COPD: No Diabetes: Yes HTN: Yes Hypercholesterolemia: Yes - Surgical History Cardiac Surgery: Yes (stents x 2) - Immunization History Immunization Up to Date: No - Psycho Social/Smoking Cessation Hx Smoking History: Never smoked Have you smoked in the past 12 months: No If you are a former smoker, when did you quit?: 2009 Information on smoking cessation initiated: No Hx Alcohol Use: No Drug/Substance Use Hx: No Substance Use Type: Alcohol *Physical Exam - Vital Signs Last Vital Signs Temp Pulse Resp BP Pulse Ox 98.2 F 68 16 157/62 99 08/23/19 07:30 08/23/19 07:30 08/23/19 07:30 08/23/19 07:30 08/23/19 07:30 ED Treatment Course - LABORATORY CBC & Chemistry Diagram: 08/23/19 08:30 08/23/19 08:30 - RADIOLOGY Radiology Studies Ordered: Category Date Time Status CHEST PA & LAT [RAD] Stat Radiology 08/23/19 08:10 Ordered Medical Decision Making - Medical Decision Making 08/23/19 08:43 73 y/o M with hx of ESRD with AV fistula placed 2 months ago, CAD c/b [place] s/p PCI w/ 5 stents 2 years ago, HTN, HLD, DM who presents to ED with complaint of SOB x1 week progressively worsening over the past 2 days. VSS, AF. PE notable for 1+ BL LE pitting edema and LLL crackles. -cbc, cmp, mg, phos, trop, bnp, ekg, cxr, coags 08/23/19 10:10 K 4.0 Cr 10.2 GFR 4.49 BNP ~8000 EKG: NSR, LAD, no ST E/D, nl intervals Discussed patient with Dr Cartwright (renal) and is recommending admission for dialysis with at least 1 night stay Will admit to [facility] given patient PCP is Johann Knox from [facility], same as Dr Boyer admitted under Dr Sheldon Krishnan tele unit Discharge - Discharge Information Problems reviewed: Yes Clinical Impression/Diagnosis: Pulmonary vascular congestion, CKD (chronic kidney disease) stage 5, GFR less than 15 ml/min, Dyspnea Condition: Stable - Admission Yes - Follow up/Referral - Patient Discharge Instructions - Post Discharge Activity
--- NOTE | 2019-08-23 08:26 | PDOC ---
Attending Attestation - Resident Resident Name: Dana Salamanca - ED Attending Attestation I have performed the following: I have examined & evaluated the patient, The case was reviewed & discussed with the resident, I agree w/resident's findings & plan, Exceptions are as noted - HPI HPI: 08/23/19 08:23 73y M ESRD (predialysis), CAD sp [place]/PCI, HL, HTN, DM presents with worsneing sob forthe past week, had dw dr. jacob who referred him to the ED fo evaluationWas in the hospital recently for similar sympmtoms. Denie any cp, n/v , lihthedeness, palpitations. Pt still produces urine. denies smoking/drug use/ etoh abuse Renal: Dr. Jacob PMD: David Deluna Physical Exam: GENERAL: The patient is awake, alert, and fully oriented, Nontoxic - in no acute distress. HEAD: Normocephalic, atraumatic. EYES: extraocular movements intact, sclera anicteric, conjunctiva clear. ENT: Normal voice, Moist mucous membranes. NECK: Normal range of motion, supple LUNGS: Coarse breath sounds/rales at the left base, no acute respiratory distress, speaking complete sentences HEART: Regular rate and rhythm, normal S1 and S2 without murmur, rub or gallop. ABDOMEN: Soft, nontender, No guarding, no rebound. No CVA tenderness EXTREMITIES: Normal range of motion, trace edema. NEUROLOGICAL: No facial assymetry, Normal speech, PSYCH: Normal mood, normal affect. SKIN: Warm, Dry, normal turgor, Differential for the patient's symptoms includes acute renal failure, fluid overload, pneumonia, CHF We will obtain blood work, chest x-ray, EKG - Physicial Exam PE: 08/23/19 16:11 see above - Medical Decision Making 08/23/19 10:07 Patient's labs are reviewed case was discussed with Dr. Jacob request admission for to start dialysis Patient's x-rays noted for infiltrate/atelectasis in the left base. Patient has no clinical signs of pneumonia 08/23/19 16:11 Heart Score/ECG Review - ECG Impressions Comment:: 08/23/19 10:06 Twelve-lead EKG was performed and reviewed by me. There is normal sinus rhythm with a normal rate. Rate of [address] wave changes QTc interval of 467
[2019-08-23 08:58] LABS: BASO % 1.9 % (0-2.0); EOS % 14.4 % (0-4.5); HEMATOCRIT 28.5 % (35.4-49); HEMOGLOBIN 9.6 GM/dL (11.7-16.9); MCH 29.2 pg (25.7-33.7); MCHC 33.8 g/dl (32.0-35.9); MEAN CELL VOLUME 86.4 fl (80-96); MEAN PLT VOLUME 8.3 fl (7.5-11.1); MONO % 8.8 % (3.8-10.2); NEUT % 58.9 % (42.8-82.8); PLATELET COUNT 146 K/MM3 (134-434); RBC 3.29 M/mm3 (4.00-5.60); RDW 15.4 % (11.9-15.9); WHITE BLOOD COUNT 7.1 K/mm3 (4.0-10.0)
[2019-08-23 09:08] LABS: INR 1.03 (0.83-1.09); PROTHROMBIN TIME (PATIENT) 12.2 SEC (9.7-13.0)
[2019-08-23 09:10] LABS: ACTIVATED PTT 33.4 SECONDS (25.2-36.5)
[2019-08-23 09:36] LABS: ALBUMIN 3.6 g/dl (3.4-5.0); BILIRUBIN,TOTAL 0.6 mg/dL (0.2-1); BLOOD UREA NITROGEN 80.3 mg/dL (7-18); CALCIUM 8.9 mg/dL (8.5-10.1); MAGNESIUM 2.4 mg/dL (1.8-2.4); N-TERMINAL BNP 7989.9 pg/ml (5-125); PHOSPHOROUS 4.6 mg/dL (2.5-4.9); POTASSIUM 4.2 mmol/L (3.5-5.1); TOT PROT 7.2 g/dl (6.4-8.2)
[2019-08-23 09:42] LABS: CREATININE 10.2 mg/dL (0.55-1.3)
--- NOTE | 2019-08-23 11:18 | PN ---
Teaching Attending Note Name of Resident: Ne Cantor ATTENDING PHYSICIAN STATEMENT I saw and evaluated the patient. I reviewed the resident's note and discussed the case with the resident. I agree with the resident's findings and plan as documented. SUBJECTIVE: DRAKE and PN OBJECTIVE: Elderly man not in distress Vital Signs Temperature 98.2 F 08/23/19 07:30 Pulse Rate 68 08/23/19 07:30 Respiratory Rate 16 08/23/19 07:30 Blood Pressure 157/62 08/23/19 07:30 O2 Sat by Pulse Oximetry (%) 98 08/23/19 08:30 HEENT: Mm moist mild anemia NECK:No JVD no Bruit CHEST: B/L Crepts CVS: S1S2 R ABD: Non tender Bs + EXT: Edema feet +, pulses + MANAGER FRONT: AOX3 non focal CBC,CMP WBC 7.1 K/mm3 (4.0-10.0) 08/23/19 08:30 RBC 3.29 M/mm3 (4.00-5.60) L 08/23/19 08:30 Hgb 9.6 GM/dL (11.7-16.9) L 08/23/19 08:30 Hct 28.5 % (35.4-49) L 08/23/19 08:30 MCV 86.4 fl (80-96) 08/23/19 08:30 MCH 29.2 pg (25.7-33.7) 08/23/19 08:30 MCHC 33.8 g/dl (32.0-35.9) 08/23/19 08:30 RDW 15.4 % (11.9-15.9) 08/23/19 08:30 Plt Count 146 K/MM3 (134-434) 08/23/19 08:30 MPV 8.3 fl (7.5-11.1) 08/23/19 08:30 Absolute Neuts (auto) 4.2 K/mm3 (1.5-8.0) 08/23/19 08:30 Neutrophils % 58.9 % (42.8-82.8) 08/23/19 08:30 Lymphocytes % 16.0 % (8-40) 08/23/19 08:30 Monocytes % 8.8 % (3.8-10.2) 08/23/19 08:30 Eosinophils % 14.4 % (0-4.5) H 08/23/19 08:30 Basophils % 1.9 % (0-2.0) 08/23/19 08:30 Nucleated RBC % 0 % (0-0) 08/23/19 08:30 Sodium 139 mmol/L (136-145) 08/23/19 08:30 Potassium 4.2 mmol/L (3.5-5.1) 08/23/19 08:30 Chloride 108 mmol/L (98-107) H 08/23/19 08:30 Carbon Dioxide 21 mmol/L (21-32) 08/23/19 08:30 Anion Gap 9 MMOL/L (8-16) 08/23/19 08:30 BUN 80.3 mg/dL (7-18) H 08/23/19 08:30 Creatinine 10.2 mg/dL (0.55-1.3) H* 08/23/19 08:30 Est GFR (CKD-EPI)AfAm 5.20 08/23/19 08:30 Est GFR (CKD-EPI)NonAf 4.49 08/23/19 08:30 Random Glucose 162 mg/dL (74-106) H 08/23/19 08:30 Calcium 8.9 mg/dL (8.5-10.1) 08/23/19 08:30 Phosphorus 4.6 mg/dL (2.5-4.9) 08/23/19 08:30 Magnesium 2.4 mg/dL (1.8-2.4) 08/23/19 08:30 Total Bilirubin 0.6 mg/dL (0.2-1) 08/23/19 08:30 AST 25 U/L (15-37) 08/23/19 08:30 ALT 41 U/L (13-61) 08/23/19 08:30 Alkaline Phosphatase 157 U/L (45-117) H 08/23/19 08:30 Creatine Kinase 194 U/L (26-308) 08/23/19 08:30 Creatine Kinase Index 3.2 % (0.0-5.0) 08/23/19 08:30 CK-MB (CK-2) 6.4 ng/mL (0.5-3.6) H 08/23/19 08:30 Troponin I 0.03 ng/ml (0.00-0.05) 08/23/19 08:30 B-Natriuretic Peptide 7989.9 pg/ml (5-125) H 08/23/19 08:30 Total Protein 7.2 g/dl (6.4-8.2) 08/23/19 08:30 Albumin 3.6 g/dl (3.4-5.0) 08/23/19 08:30 ASSESSMENT AND PLAN:73 y/o M CKD stage 5 with mature with AV fistula placed 2 months ago now mature to use in the process of start on HD as lately having worsening SOB , decrease ET and PND, also CAD c/b MD s/p PCI w/ 5 stents 2 years ago, HTN, HLD, T2DM who presents to ED with complaint of SOB. He states his symptoms started 1 week ago and initially with exertion now at rest denies any chest pain, palpitation, nausea or vomiting Impression; decompensated diastolic HF due to volume over load Problem List - Problems (1) Decompensated heart failure Assessment/Plan: Due to voliume over load will resume all home mode , Nephrology to start on HD patient dnies any chest pain, EKG normal , normal troponin I Problems reviewed: Yes Code(s): I50.9 - HEART FAILURE, UNSPECIFIED (2) CKD (chronic kidney disease) stage 5, GFR less than 15 ml/min Assessment/Plan: Frequent volume over load despite high dose lasix Nephrology consult to start on HD Problems reviewed: Yes Code(s): N18.5 - CHRONIC KIDNEY DISEASE, STAGE 5 (3) Pulmonary vascular congestion Assessment/Plan: Due to Volume over load secodary to CKD stage 5 Problems reviewed: Yes Code(s): R09.89 - OTH SYMPTOMS AND SIGNS INVOLVING THE CIRC AND RESP SYSTEMS (4) Diabetes mellitus Assessment/Plan: Cont home meds with correction dose Insulin Problems reviewed: Yes Code(s): E11.9 - TYPE 2 DIABETES MELLITUS WITHOUT COMPLICATIONS (5) HTN (hypertension) Assessment/Plan: Well controlled resume home meds Problems reviewed: Yes Code(s): I10 - ESSENTIAL (PRIMARY) HYPERTENSION (6) CAD (coronary artery disease) Assessment/Plan: S/P PCI at present asymptomatic, no EKG changes, normal troponin I Code(s): I25.10 - ATHSCL HEART DISEASE OF [place] CORONARY ARTERY W/O ANG PCTRS
[2019-08-23] MEDS ORDERED: CALCITRIOL 0.25 MCG CAPSULE (FP) PO SCH (11:30)
--- NOTE | 2019-08-23 11:35 | HP ---
CHIEF COMPLAINT: worsening sob PCP: Dr. Wills Nephro: Dr. Cartwright Cardio: Dr. Velez Vasc: Dr. Ho HISTORY OF PRESENT ILLNESS: 73M w/ pmhx of ESRD (recent fistula placed x2 months ago), IDDM, CAD s/p VT (x5 stents), HTN/HLD presents in the ED for complaints of worsening sob over the past 1 month. States his symptoms became worse since last Friday and today reports dypsnea on exertion while going up the stairs at home. He has known ESRD and has not yet started hemodialysis although he takes Torsemide PO twice a day. Admits to orthopnea and needs 2 pillows to help sleep at night. He denies associated moody/d, vision changes, chest pain, abd pain, urinary/bowel symptoms. States he can urinate. ER course was notable for: (1) BP 157/62, H/H 9.6/28.5, BUN/Cr 80.3, 10.2 (2) Per ED, nephro consulted with recommendation for inpatient dialysis today (3) CXR showed cardiomegaly, vascular congestive changes, lynette-bronchial cuffing , Preet B lines, small b/l effusions - CHF Recent Travel: Denies PAST MEDICAL HISTORY: As per HPI PAST SURGICAL HISTORY: PCI s/p stents x5 Social History: Smoking: Denies Alcohol: Denies Drugs: Joseline Has 2 children Lives at home with Retired: previously worked as a gunner's mate g Allergies No Known Allergies Allergy (Verified 08/23/19 07:30) HOME MEDICATIONS: Home Medications Medication Instructions Recorded Glimepiride 2 mg PO BID 08/20/17 Amlodipine Besylate [Norvasc -] 10 mg PO DAILY tablet 08/28/17 Aspirin 81 mg PO DAILY 04/26/19 Calcitriol [Calcitriol -] 0.25 mcg PO DAILY capsule 04/26/19 Calcium Acetate 667 mg PO TID 04/26/19 Famotidine [Pepcid] 20 mg PO DAILY 04/26/19 Metoprolol Succinate [Toprol XL -] 25 mg PO DAILY 04/26/19 Sodium Bicarbonate - 650 mg PO BID 04/26/19 Insulin (Levemir) [Levemir Vial] 12 unit SQ HS 06/24/19 Atorvastatin Ca [Lipitor] 40 mg PO HS 08/23/19 Torsemide 100 mg PO DAILY PRN 08/23/19 REVIEW OF SYSTEMS CONSTITUTIONAL: Absent: fever, chills, diaphoresis, generalized weakness, malaise, loss of appetite, weight change HEENT: Absent: rhinorrhea, nasal congestion, throat pain, throat swelling, difficulty swallowing, mouth swelling, ear pain, eye pain, visual changes CARDIOVASCULAR: +leg swelling L > R Absent: chest pain, syncope, palpitations, irregular heart rate, lightheadedness , peripheral edema RESPIRATORY: shortness of breath, dyspnea with exertion, orthopnea Absent: cough, wheezing, stridor, hemoptysis GASTROINTESTINAL: Absent: abdominal pain, abdominal distension, nausea, vomiting, diarrhea, constipation, melena, hematochezia GENITOURINARY: Absent: dysuria, frequency, urgency, hesitancy, hematuria, flank pain, genital pain MUSCULOSKELETAL: Absent: myalgia, arthralgia, joint swelling, back pain, neck pain SKIN: Absent: rash, itching, pallor HEMATOLOGIC/IMMUNOLOGIC: Absent: easy bleeding, easy bruising, lymphadenopathy, frequent infections ENDOCRINE: Absent: unexplained weight gain, unexplained weight loss, heat intolerance, cold intolerance NEUROLOGIC: Absent: headache, focal weakness or paresthesias, dizziness, unsteady gait, seizure, mental status changes, bladder or bowel incontinence PSYCHIATRIC: Absent: anxiety, depression, suicidal or homicidal ideation, hallucinations. PHYSICAL EXAMINATION Vital Signs - 24 hr 08/23/19 08/23/19 07:30 08:30 Temperature 98.2 F Pulse Rate 68 Respiratory 16 Rate Blood Pressure 157/62 O2 Sat by Pulse 99 98 Oximetry (%) GENERAL: Well-appearing male, NAD. HEENT: AT/NC. EOMI. MMM. NECK: Normal range of motion, supple without lymphadenopathy, JVD, or masses. LUNGS: Fine bibasilar crackles noted. No wheezes. Symmetric chest rise. HEART: RRR. Normal S1, S2. No murmiurs noted. ABDOMEN: Soft NT/ND. Normoactive bowel sounds in all 4Qs. No masses or deformities noted. MUSCULOSKELETAL: Normal range of motion at all joints. No bony deformities or tenderness. No CVA tenderness. UPPER EXTREMITIES: 2+ pulses, warm, well-perfused. No cyanosis. No clubbing. No peripheral edema. RUE fistula in place, +palpable thrill. LOWER EXTREMITIES: 2+ pulses, warm, well-perfused. No calf tenderness. Mild peripheral edema noted, L > R. NEUROLOGICAL: Cranial nerves II-XII intact. Normal speech. SKIN: Warm, dry, normal turgor, no rashes or lesions noted, normal capillary refill. Laboratory Results - last 24 hr 08/23/19 08/23/19 08/23/19 08:30 08:30 08:30 WBC 7.1 RBC 3.29 L Hgb 9.6 L Hct 28.5 L MCV 86.4 MCH 29.2 MCHC 33.8 RDW 15.4 Plt Count 146 MPV 8.3 Absolute Neuts (auto) 4.2 Neutrophils % 58.9 Lymphocytes % 16.0 Monocytes % 8.8 Eosinophils % 14.4 H Basophils % 1.9 Nucleated RBC % 0 PT with INR 12.20 INR 1.03 PTT (Actin FS) 33.4 Sodium Potassium Chloride Carbon Dioxide Anion Gap BUN Creatinine Est GFR (CKD-EPI)AfAm Est GFR (CKD-EPI)NonAf Random Glucose Calcium Phosphorus Magnesium Total Bilirubin AST ALT Alkaline Phosphatase Creatine Kinase 194 Creatine Kinase Index 3.2 CK-MB (CK-2) 6.4 H Troponin I 0.03 B-Natriuretic Peptide Total Protein Albumin 08/23/19 08:30 WBC RBC Hgb Hct MCV MCH MCHC RDW Plt Count MPV Absolute Neuts (auto) Neutrophils % Lymphocytes % Monocytes % Eosinophils % Basophils % Nucleated RBC % PT with INR INR PTT (Actin FS) Sodium 139 Potassium 4.2 Chloride 108 H Carbon Dioxide 21 Anion Gap 9 BUN 80.3 H Creatinine 10.2 H* Est GFR (CKD-EPI)AfAm 5.20 Est GFR (CKD-EPI)NonAf 4.49 Random Glucose 162 H Calcium 8.9 Phosphorus 4.6 Magnesium 2.4 Total Bilirubin 0.6 AST 25 ALT 41 Alkaline Phosphatase 157 H Creatine Kinase Creatine Kinase Index CK-MB (CK-2) Troponin I B-Natriuretic Peptide 7989.9 H Total Protein 7.2 Albumin 3.6 EKG: NSR, HR 71, QTc 467 ms, no significant changes from previous ASSESSMENT/PLAN: 73M w/ pmhx of ESRD (recent fistula placed x2 months ago), IDDM, CAD s/p VT ( x5 stents), HTN/HLD presents in the ED for complaints of worsening sob over the past 1 month admitted for fluid overload. #Fluid Overload; likely 2/2 ESRD. BUN/Cr 80.3/10.2 -Pt complains of sob despite on high dose PO diuretics at home. -Nephro consulted; agree for inpatient dialysis today -CXR showed cardiomegaly, vascular congestive changes, lynette-bronchial cuffing, Renetta B lines, small b/l effusions - CHF -Avoid nephrotoxic agents -Daily weights #DM; Hold home oral meds. BGMs/ISS ACHS. Cont home med: Levemir 12U HS. #Hx of CAD s/p 5 stents; Cont home meds: ASA 81, Toprol 25 QD #HTN/HLD; Cont home meds: Toprol XL 25 QD, Amlodipine 10 QD #Prophylaxis DVT: SQH GI: Cont home Pepcid 20 QD FEN -no IVf -recheck lytes in AM -Renal diet Dispo -admit to tele Visit type - Emergency Visit Emergency Visit: Yes ED Registration Date: 08/23/19 Care time: The patient presented to the Emergency Department on the above date and was hospitalized for further evaluation of their emergent condition. - New Patient This patient is new to me today: Yes Date on this admission: 08/23/19 - Critical Care Critical Care patient: No ATTENDING PHYSICIAN STATEMENT I saw and evaluated the patient. I reviewed the resident's note and discussed the case with the resident. I agree with the resident's findings and plan as documented. SUBJECTIVE: OBJECTIVE: ASSESSMENT AND PLAN:
[2019-08-23] MEDS ORDERED: SODIUM CHLORIDE 250 ML IV PRN ×2 (12:00→14:00)
--- NOTE | 2019-08-23 12:00 | CONSULT ---
Consult - text type - Consultation Consultation Note: Renal consult for ESRD This is a 73 year old gentleman with history of CKD stage 5 not yet on dialysis secondary to diabetic nephropathy, DM, hypertension, CAD s/p PCI and stenting, CKD related anemia who was referred to the ED to start dialysis as he has a eGFR of 4-5. Pt seen and examined in the ED. Reports some SOB when laying down to rest. Denies any chest pain. No N/V/D. No flank pain. No metallic taste in the mouth. + fatigue. PMhx: as above Allergies: NKDA Family Hx: NC Social Hx: No T/A/D ROS: as per HPI, all other pertinent ros negative Home meds: Home Medications Medication Instructions Recorded Glimepiride 2 mg PO BID 08/20/17 Amlodipine Besylate [Norvasc -] 10 mg PO DAILY tablet 08/28/17 Aspirin 81 mg PO DAILY 04/26/19 Calcitriol [Calcitriol -] 0.25 mcg PO DAILY capsule 04/26/19 Calcium Acetate 667 mg PO TID 04/26/19 Famotidine [Pepcid] 20 mg PO DAILY 04/26/19 Metoprolol Succinate [Toprol XL -] 25 mg PO DAILY 04/26/19 Sodium Bicarbonate - 650 mg PO BID 04/26/19 Insulin (Levemir) [Levemir Vial] 12 unit SQ HS 06/24/19 Atorvastatin Ca [Lipitor] 40 mg PO HS 08/23/19 Torsemide 100 mg PO DAILY PRN 08/23/19 Vital Signs Temperature 98.2 F 08/23/19 07:30 Pulse Rate 68 08/23/19 07:30 Respiratory Rate 16 08/23/19 07:30 Blood Pressure 157/62 08/23/19 07:30 O2 Sat by Pulse Oximetry (%) 98 08/23/19 08:30 Intake & Output 08/21/19 08/22/19 08/22/19 08/23/19 00:59 00:59 23:59 23:59 Weight 67.585 kg NAD awake and alert neck supple RRR Dec Bs at lung bases, no rales soft NT/ND no LE edema left arm AVF CBC, BMP 08/23/19 08:30 08/23/19 08:30 Current Medications Amlodipine Besylate (Norvasc -) 10 mg PO DAILY [facility] Aspirin (Asa -) 81 mg PO DAILY [facility] Atorvastatin Calcium (Lipitor -) 40 mg PO HS [facility] Calcitriol (Rocaltrol -) 0.25 mcg PO DAILY [facility] Calcium Acetate (Phoslo -) 667 mg PO TID [facility] Famotidine (Pepcid -) 20 mg PO DAILY [facility] Heparin Sodium (Porcine) (Heparin -) 5,000 unit SQ TID [facility] Sodium Chloride (Normal Saline -) 250 mls @ 3,000 mls/hr IV PRN PRN PRN Reason: Hypotension during Dialysis Stop: 08/24/19 11:31 Insulin Detemir (Levemir Vial) 12 units SQ HS [facility] Metoprolol Succinate (Toprol Xl -) 25 mg PO DAILY [facility] Sodium Bicarbonate (Sodium Bicarbonate -) 650 mg PO BID [facility]ERTA 73 year old gentleman with history of CKD stage 5 not yet on dialysis secondary to diabetic nephropathy, DM, hypertension, CAD s/p PCI and stenting, CKD related anemia who was referred to the ED to start dialysis as he has a eGFR of 4-5. 1. CKD stage 5 now ESRD and will start dialysis 2. CKD related Anemia 3. Mild SOB/Fluid overload 4. CAD 5. Hypertension 6. DM discussed risks and benifits of dialysis with patient and family and they expressed understanding and are willing to start treatment. Will arrange for 2 hour tx today and 2.5 hour tx tomorrow. Will do minimal UF with HD today. Treatment information should be sent to [email or web address]. Insurance information already sent from the office and he has been cleared. Hepatitis panel collected within the last 30 days in the office and will be sent. Continue present antihypertensives Continue Calcitriol and phoslo Thank you Mehdi Cartwright DO
[2019-08-23] MEDS ORDERED: metoPROLOL SUCCINATE 25 MG TAB.SR.24H (FP) PO SCH (12:18)
[2019-08-23] MEDS ORDERED: EPOETIN ALFA 3,000 UNIT/1 ML ML IVPUSH ONE (14:00)
--- NOTE | 2019-08-23 15:07 | EKG ---
Test Reason : Blood Pressure : / mmHG Vent. Rate : 071 BPM Atrial Rate : 071 BPM P-R Int : 144 ms QRS Dur : 080 ms QT Int : 430 ms P-R-T Axes : 066 -09 090 degrees QTc Int : 467 ms NORMAL SINUS RHYTHM POSSIBLE LEFT ATRIAL ENLARGEMENT NONSPECIFIC ST AND T WAVE ABNORMALITY PROLONGED QT ABNORMAL ECG WHEN COMPARED WITH ECG OF 07-JUL-2019 08:05, T WAVE VARIATION Confirmed by GEOVANNA PARIS, MARTELL ([id number]) on 08/23/2019 3:06:42 PM Referred By: Confirmed By:MARTELL AUSTIN MD
[2019-08-23] MEDS: HEPARIN NA (PORCINE) 5,000 UNITS/ML 1ML VIAL IVPUSH SCH (15:36)
[2019-08-23 16:18] VITALS: BMI 21.2
[2019-08-23] MEDS: CALCIUM ACETATE 667 MG CAPSULE (FP) PO SCH ×2 (16:44→16:52)
[2019-08-23] MEDS: SODIUM BICARBONATE 650 MG TABLET PO SCH ×2 (16:44→22:20)
[2019-08-23] MEDS: amLODIPine BESYLATE 10 MG TABLET (FP) PO SCH (16:44)
[2019-08-23] MEDS: HEPARIN NA (PORCINE) 5,000 UNITS/ML 1ML VIAL SQ SCH ×2 (16:45→22:17)
[2019-08-23] MEDS: ASPIRIN 81 MG CHEWABLE TABLETS PO SCH (16:45)
[2019-08-23] MEDS: FAMOTIDINE 20 MG TABLET PO SCH (16:45)
[2019-08-23] MEDS ORDERED: INSULIN (LEVEMIR) 100 UNITS/ML UNITS SQ SCH ×2 (22:00)
[2019-08-23] MEDS ORDERED: ATORVASTATIN CA 40 MG TABLET (FP) PO SCH (22:00)
[2019-08-23] MEDS: INSULIN SLIDING SCALE (NOVOLOG) 1 VIAL SQ SCH (22:19)
[2019-08-24] MEDS: INSULIN SLIDING SCALE (NOVOLOG) 1 VIAL SQ SCH ×2 (06:16→13:59)
[2019-08-24] MEDS: HEPARIN NA (PORCINE) 5,000 UNITS/ML 1ML VIAL SQ SCH (06:17)
--- NOTE | 2019-08-24 08:10 | PN ---
Teaching Attending Note Name of Resident: Carol Mario ATTENDING PHYSICIAN STATEMENT I saw and evaluated the patient. I reviewed the resident's note and discussed the case with the resident. I agree with the resident's findings and plan as documented with exceptions below. SUBJECTIVE: Patient seen and examined. no complaints, denies any dyspnea. OBJECTIVE: Vital Signs Period Temp Pulse Resp BP Sys/Pratt Pulse Ox Last 24 Hr 97.6 F-99 F 70-86 18-20 149-177/60-88 95-100 Intake & Output 08/22/19 08/22/19 08/23/19 08/24/19 00:59 23:59 23:59 23:59 Intake Total 980 250 Output Total 780 Balance 200 250 Weight 143 lb 12.8 oz 141 lb 3.2 oz General: sitting in bed in no acute distress Neck: soft, supple Chest: CTAB, no rales or wheezing Abdomen: soft, NT Extremities: no pedal edema Home Medications Medication Instructions Recorded Glimepiride 2 mg PO BID 08/20/17 Amlodipine Besylate [Norvasc -] 10 mg PO DAILY tablet 08/28/17 Aspirin 81 mg PO DAILY 04/26/19 Calcitriol [Calcitriol -] 0.25 mcg PO DAILY capsule 04/26/19 Calcium Acetate 667 mg PO TID 04/26/19 Famotidine [Pepcid] 20 mg PO DAILY 04/26/19 Metoprolol Succinate [Toprol XL -] 25 mg PO DAILY 04/26/19 Sodium Bicarbonate - 650 mg PO BID 04/26/19 Insulin (Levemir) [Levemir Vial] 12 unit SQ HS 06/24/19 Atorvastatin Ca [Lipitor] 40 mg PO HS 08/23/19 Torsemide 100 mg PO DAILY PRN 08/23/19 Active Medications Amlodipine Besylate (Norvasc -) 10 mg PO DAILY [facility] Last Admin: 08/23/19 16:44 Dose: 10 mg Aspirin (Asa -) 81 mg PO DAILY [facility] Last Admin: 08/23/19 16:45 Dose: 81 mg Atorvastatin Calcium (Lipitor -) 40 mg PO HS [facility] Last Admin: 08/23/19 22:21 Dose: 40 mg Calcitriol (Rocaltrol -) 0.25 mcg PO DAILY [facility] Last Admin: 08/23/19 16:44 Dose: 0.25 mcg Calcium Acetate (Phoslo -) 667 mg PO TIDCM [facility] Last Admin: 08/23/19 16:52 Dose: Not Given Famotidine (Pepcid -) 20 mg PO DAILY [facility] Last Admin: 08/23/19 16:45 Dose: 20 mg Heparin Sodium (Porcine) (Heparin -) 5,000 unit SQ TID [facility] Last Admin: 08/24/19 06:17 Dose: 5,000 unit Heparin Sodium (Porcine) (Heparin -) 300 unit IVPUSH ONCE ONE Stop: 08/24/19 06:01 Heparin Sodium (Porcine) (Heparin -) 300 unit IVPUSH Q1H [facility] Stop: 08/24/19 09:01 Sodium Chloride (Normal Saline -) 250 mls @ 3,000 mls/hr IV PRN PRN PRN Reason: Hypotension during Dialysis Stop: 08/24/19 13:59 Sodium Chloride (Normal Saline -) 250 mls @ 3,000 mls/hr IV PRN PRN PRN Reason: Hypotension during Dialysis Stop: 08/24/19 12:00 Sodium Chloride (Normal Saline -) 250 mls @ 3,000 mls/hr IV PRN PRN PRN Reason: Hypotension during Dialysis Stop: 08/24/19 23:24 Insulin Aspart (Novolog Vial Sliding Scale -) 1 vial SQ [facility]; Protocol Last Admin: 08/24/19 06:16 Dose: Not Given Insulin Detemir (Levemir Vial) 12 units SQ HS [facility] Last Admin: 08/23/19 22:19 Dose: 12 units Metoprolol Succinate (Toprol Xl -) 25 mg PO DAILY [facility] Sodium Bicarbonate (Sodium Bicarbonate -) 650 mg PO BID [facility] Last Admin: 08/23/19 22:20 Dose: 650 mg Laboratory Results - last 24 hr 08/23/19 08/23/19 08/23/19 08:30 08:30 08:30 WBC 7.1 RBC 3.29 L Hgb 9.6 L Hct 28.5 L MCV 86.4 MCH 29.2 MCHC 33.8 RDW 15.4 Plt Count 146 MPV 8.3 Absolute Neuts (auto) 4.2 Neutrophils % 58.9 Lymphocytes % 16.0 Monocytes % 8.8 Eosinophils % 14.4 H Basophils % 1.9 Nucleated RBC % 0 PT with INR 12.20 INR 1.03 PTT (Actin FS) 33.4 Sodium Potassium Chloride Carbon Dioxide Anion Gap BUN Creatinine Est GFR (CKD-EPI)AfAm Est GFR (CKD-EPI)NonAf POC Glucometer Random Glucose Calcium Phosphorus Magnesium Total Bilirubin AST ALT Alkaline Phosphatase Creatine Kinase 194 Creatine Kinase Index 3.2 CK-MB (CK-2) 6.4 H Troponin I 0.03 B-Natriuretic Peptide Total Protein Albumin Hep A IgM Ab Confirm Hep Bs Antigen Hep B Core IgM Ab Hepatitis C Ab (EIA) 08/23/19 08/23/19 08/23/19 08:30 10:38 16:47 WBC RBC Hgb Hct MCV MCH MCHC RDW Plt Count MPV Absolute Neuts (auto) Neutrophils % Lymphocytes % Monocytes % Eosinophils % Basophils % Nucleated RBC % PT with INR INR PTT (Actin FS) Sodium 139 Potassium 4.2 Chloride 108 H Carbon Dioxide 21 Anion Gap 9 BUN 80.3 H Creatinine 10.2 H* Est GFR (CKD-EPI)AfAm 5.20 Est GFR (CKD-EPI)NonAf 4.49 POC Glucometer 255 Random Glucose 162 H Calcium 8.9 Phosphorus 4.6 Magnesium 2.4 Total Bilirubin 0.6 AST 25 ALT 41 Alkaline Phosphatase 157 H Creatine Kinase Creatine Kinase Index CK-MB (CK-2) Troponin I B-Natriuretic Peptide 7989.9 H Total Protein 7.2 Albumin 3.6 Hep A IgM Ab Confirm Negative Hep Bs Antigen Negative Hep B Core IgM Ab Negative Hepatitis C Ab (EIA) >11.0 H 08/23/19 08/24/19 21:38 06:06 WBC RBC Hgb Hct MCV MCH MCHC RDW Plt Count MPV Absolute Neuts (auto) Neutrophils % Lymphocytes % Monocytes % Eosinophils % Basophils % Nucleated RBC % PT with INR INR PTT (Actin FS) Sodium Potassium Chloride Carbon Dioxide Anion Gap BUN Creatinine Est GFR (CKD-EPI)AfAm Est GFR (CKD-EPI)NonAf POC Glucometer 232 75 Random Glucose Calcium Phosphorus Magnesium Total Bilirubin AST ALT Alkaline Phosphatase Creatine Kinase Creatine Kinase Index CK-MB (CK-2) Troponin I B-Natriuretic Peptide Total Protein Albumin Hep A IgM Ab Confirm Hep Bs Antigen Hep B Core IgM Ab Hepatitis C Ab (EIA) ASSESSMENT AND PLAN: 73 yom with PMHx of ESRD (recent fistula placed x2 months ago), IDDM, CAD s/p RI (x5 stents), HTN/HLD admitted with progressive dyspnea for 1 month, started on HD -ESRD, on new HD -ACute on chronic systolic heart failure exacerbation -IDDM -CAD s/p RI (s/p PCI x5) -HTN -HLD Plan: Started on HD, renal input noted. Volume status improving. Continue amlodipine/metoprolol/statin Renal input noted. Start lasix. D/c NaHco3 and calcitriol. Levemir, ISS, resume glimepiride on dc DVTPPX heparin Dispo discussed with social work, outpatient HD arrangements made. dc home with outpatient HD scheduled this . Discussed with patient and social work.
[2019-08-24 09:09] LABS: HEMATOCRIT 27.5 % (35.4-49); HEMOGLOBIN 9.3 GM/dL (11.7-16.9); MCH 29.2 pg (25.7-33.7); MCHC 33.9 g/dl (32.0-35.9); MEAN CELL VOLUME 86.2 fl (80-96); MEAN PLT VOLUME 8.4 fl (7.5-11.1); PLATELET COUNT 137 K/MM3 (134-434); RBC 3.19 M/mm3 (4.00-5.60); RDW 15.5 % (11.9-15.9); WHITE BLOOD COUNT 6.9 K/mm3 (4.0-10.0)
[2019-08-24 09:36] LABS: ALBUMIN 3.2 g/dl (3.4-5.0); BILIRUBIN,TOTAL 0.5 mg/dL (0.2-1); BLOOD UREA NITROGEN 55.9 mg/dL (7-18); CALCIUM 8.3 mg/dL (8.5-10.1); MAGNESIUM 2.1 mg/dL (1.8-2.4); PHOSPHOROUS 3.1 mg/dL (2.5-4.9); POTASSIUM 3.9 mmol/L (3.5-5.1); TOT PROT 6.7 g/dl (6.4-8.2)
[2019-08-24] MEDS ORDERED: SODIUM CHLORIDE 250 ML IV PRN (09:38)
[2019-08-24] MEDS ORDERED: HEPARIN NA (PORCINE) 5,000 UNITS/ML 1ML VIAL IVPUSH ONE (09:45)
[2019-08-24 09:47] LABS: CREATININE 7.7 mg/dL (0.55-1.3)
[2019-08-24 12:19] VITALS: TEMP 98.1
[2019-08-24] MEDS: HEPARIN NA (PORCINE) 5,000 UNITS/ML 1ML VIAL IVPUSH SCH (12:21)
--- NOTE | 2019-08-24 12:46 | PN ---
Progress Note (short form) - Note Progress Note: Renal follow up for ESRD on HD Seen and examined during dialysis AVF working well BP stable pt offers no acute complaints goal UF is 1L Vital Signs Temperature 98.1 F 08/24/19 10:10 Pulse Rate 89 08/24/19 11:50 Respiratory Rate 18 08/24/19 11:50 Blood Pressure 178/67 H 08/24/19 11:50 O2 Sat by Pulse Oximetry (%) 95 08/23/19 21:00 Intake & Output 08/22/19 08/22/19 08/23/19 08/24/19 00:59 23:59 23:59 23:59 Intake Total 980 370 Output Total 780 Balance 200 370 Weight 65.227 kg 64.047 kg NAD awake and alert neck supple RRR CTA soft NT/ND no LE edema CBC, BMP 08/24/19 08:35 08/24/19 08:35 Current Medications Amlodipine Besylate (Norvasc -) 10 mg PO DAILY [facility] Last Admin: 08/23/19 16:44 Dose: 10 mg Aspirin (Asa -) 81 mg PO DAILY [facility] Last Admin: 08/23/19 16:45 Dose: 81 mg Atorvastatin Calcium (Lipitor -) 40 mg PO HS [facility] Last Admin: 08/23/19 22:21 Dose: 40 mg Calcium Acetate (Phoslo -) 667 mg PO TIDCM [facility] Last Admin: 08/23/19 16:52 Dose: Not Given Famotidine (Pepcid -) 20 mg PO DAILY [facility] Last Admin: 08/23/19 16:45 Dose: 20 mg Furosemide (Lasix -) 80 mg PO DAILY [facility] Heparin Sodium (Porcine) (Heparin -) 5,000 unit SQ TID [facility] Last Admin: 08/24/19 06:17 Dose: 5,000 unit Sodium Chloride (Normal Saline -) 250 mls @ 3,000 mls/hr IV PRN PRN PRN Reason: Hypotension during Dialysis Stop: 08/24/19 13:59 Insulin Aspart (Novolog Vial Sliding Scale -) 1 vial SQ ACHS [facility]; Protocol Last Admin: 08/24/19 06:16 Dose: Not Given Insulin Detemir (Levemir Vial) 12 units SQ HS [facility] Last Admin: 08/23/19 22:19 Dose: 12 units Metoprolol Succinate (Toprol Xl -) 25 mg PO DAILY ROBERTA 73 year old gentleman with history of CKD stage 5 not yet on dialysis secondary to diabetic nephropathy, DM, hypertension, CAD s/p PCI and stenting, CKD related anemia who was referred to the ED to start dialysis as he has a eGFR of 4-5. 1. CKD stage 5 now ESRD and will start dialysis 2. CKD related Anemia 3. Mild SOB/Fluid overload 4. CAD 5. Hypertension 6. DM Tolerating 2nd dialysis session today. Can discontinue oral sodium bicarbonate and calcitriol. Continue Lasix 80mg PO daily. Continue renvela TID with meals Outpatient dialysis being arranged. Pt is already cleared from insurance aspect. Can be discharged today and have first outpatient dialysis on at 2pm. To maintain renal diet and 1.2L fluid restriction at home. Thank you Mehdi Cartwright DO
[2019-08-24 13:06] VITALS: BP 164/82; PULSE 77
--- NOTE | 2019-08-24 13:43 | DS ---
Physical Exam: SUBJECTIVE: Patient seen and examined. No acute events overnight. OBJECTIVE: Vital Signs Period Temp Pulse Resp BP Sys/Pratt Pulse Ox Last 24 Hr 97.6 F-99 F 70-89 18-20 124-182/60-82 95-97 PHYSICAL EXAM GENERAL: Well-appearing male, NAD. HEENT: AT/NC. EOMI. MMM. NECK: Normal range of motion, supple without lymphadenopathy, JVD, or masses. LUNGS: Fine bibasilar crackles noted. No wheezes. Symmetric chest rise. HEART: RRR. Normal S1, S2. No murmiurs noted. ABDOMEN: Soft NT/ND. Normoactive bowel sounds in all 4Qs. No masses or deformities noted. MUSCULOSKELETAL: Normal range of motion at all joints. No bony deformities or tenderness. No CVA tenderness. UPPER EXTREMITIES: 2+ pulses, warm, well-perfused. No cyanosis. No clubbing. No peripheral edema. RUE fistula in place, +palpable thrill. LOWER EXTREMITIES: 2+ pulses, warm, well-perfused. No calf tenderness. Mild peripheral edema noted, L > R. NEUROLOGICAL: Cranial nerves II-XII intact. Normal speech. SKIN: Warm, dry, normal turgor, no rashes or lesions noted, normal capillary refill. LABS Laboratory Results - last 24 hr CBC, BMP 08/24/19 08:35 08/24/19 08:35 HOSPITAL COURSE: Date of Admission:08/23/19 Patient is a 73 year old male with PMH of ESRD (recent fistula placed x2 months ago), IDDM, CAD s/p RI (x5 stents), HTN/HLD who presented with worsening SOB and BL edema over 1 month and was admitted for fluid overload and eGFR of 4-5.. CXR showed cardiomegaly, vascular congestive changes, lynette-bronchial cuffing, Preet B lines, small BL effusions. Nephrology (Dr. Cartwright) was consulted and patient was admitted for emergent dialysis. He received 2 rounds of dialysis. BUN/Cr improved from 80.3/10.2 to 55.9/7.7. Outpatient dialysis was arranged with patient and he was advised to maintain a renal diet and 1.2L fluid restriction. He will be discharged with prescription to take 80mg lasix daily. Pt's vitals are stable and he is clinically stable to be discharged home. CXR: cardiomegaly, vascular congestive changes, lynette-bronchial cuffing, Preet B lines, small BL effusions Date of Discharge: 08/24/19 Minutes to complete discharge: 45 Discharge Summary Problems reviewed: Yes Reason For Visit: STAGE 5 CHRONIC KIDNEY DISEASE,PULM VENOUS CONGEST Current Active Problems CAD (coronary artery disease) (Chronic) Decompensated heart failure (Chronic) HTN (hypertension) (Chronic) Condition: Stable - Instructions Diet, Activity, Other Instructions: You were admitted to the hospital because of shortness of breath. This was likely because of fluid overload from your kidney failure. You were seen by the kidney doctor, Dr. Cartwright, and you were started on hemodialysis. Medications: Please take note of the following changes to your medications: - You should STOP taking Torsemide 100mg twice a day. - Please START taking Lasix 80mg daily. - You should STOP taking Sodium Bicarbonate and Calcitriol daily. - Continue to take Phoslo 667mg three times a day with meals. - Resume all other home medications as prescribed. Follow-up: - You are scheduled to have your first outpatient dialysis appointment this at 2pm at [facility]. - Please see your wireless sales consultant, Dr. Cartwright, in one week. - Please see you primary care provider in one week. Additional Instructions: - You should maintain a low sodium and low protein diet to protect your kidneys. - Restrict your fluid intake to 1.2L a day. - Monitor your blood sugars at home Return to the emergency department if you experience difficulty breathing, swelling in your legs, fevers, chills, pain, or any other symptoms. Referrals: Johann Deluna MD [Primary Care Provider] - 1 Week Mehdi Cartwright MD [Staff Physician] - 1 Week Disposition: HOME - Home Medications Comprehensive Discharge Medication List: Ambulatory Orders Glimepiride 2 mg PO BID 08/20/17 Amlodipine Besylate [Norvasc -] 10 mg PO DAILY tablet 08/28/17 Aspirin 81 mg PO DAILY 04/26/19 Calcium Acetate 667 mg PO TID 04/26/19 Famotidine [Pepcid] 20 mg PO DAILY 04/26/19 Metoprolol Succinate [Toprol XL -] 25 mg PO DAILY 04/26/19 Insulin (Levemir) [Levemir Vial] 12 unit SQ DAILY 06/24/19 Atorvastatin Ca [Lipitor] 40 mg PO HS 08/23/19 Furosemide [Lasix -] 80 mg PO DAILY #60 tablet 08/24/19 This patient is new to me today: Yes Date on this admission: 08/24/19 Emergency Visit: No Critical Care patient: No - Discharge Referral Referred to [facility] Med [facility].: No ATTENDING PHYSICIAN STATEMENT I saw and evaluated the patient. I reviewed the resident's note and discussed the case with the resident. I agree with the resident's findings and plan as documented. SUBJECTIVE: OBJECTIVE: ASSESSMENT AND PLAN:
[2019-08-24] MEDS: ASPIRIN 81 MG CHEWABLE TABLETS PO SCH (13:51)
[2019-08-24] MEDS: FAMOTIDINE 20 MG TABLET PO SCH (13:52)
[2019-08-24] MEDS: amLODIPine BESYLATE 10 MG TABLET (FP) PO SCH ×2 (13:52→14:02)
[2019-08-24] MEDS: CALCIUM ACETATE 667 MG CAPSULE (FP) PO SCH ×2 (13:53→14:01)
[2019-08-24 18:07] LABS: HEP B CORE AB, TOT Negative (Negative)
[2019-08-25] MEDS ORDERED: FUROSEMIDE 40 MG TABLET (FP) PO SCH (10:00)
== END 2019-08-24 14:31 | disposition home or self-care (01) | DRG 291 ==
LOC: JER 07:15 → JERBED 11:13 → J4W 15:30
PROVIDERS: ADMIT Internal Medicine; ATTEND Hospitalist
PROC: 5A1D70Z Performance of Urinary Filtration, Intermittent, Less than 6 Hours Per Day (ICD-10-PCS; principal; 2019-08-23)
DX: I13.2 Hypertensive heart and chronic kidney disease with heart failure and with stage 5 chronic kidney disease, or end stage renal disease (principal); N18.6 End stage renal disease; I50.23 Acute on chronic systolic (congestive) heart failure; E11.22 Type 2 diabetes mellitus with diabetic chronic kidney disease; Z99.2 Dependence on renal dialysis; E78.5 Hyperlipidemia, unspecified; I25.10 Atherosclerotic heart disease of native coronary artery without angina pectoris; Z98.61 Coronary angioplasty status; Z79.4 Long term (current) use of insulin; E11.21 Type 2 diabetes mellitus with diabetic nephropathy; D63.1 Anemia in chronic kidney disease; E87.70 Fluid overload, unspecified
CPT/HCPCS: 36415; 71046-TC-FY; 80053; 80074; 82550; 82553; 82962; 83735; 83880; 84100; 84484; 85025; 85027; 85610; 85730; 86704; 86706; 86707; 86708; 86709; 86803; 87340; 93005; 93010; 99285-25; J0885; J1644

== ENCOUNTER 2020-12-11 03:46 | Inpatient (IN) | payer OTHER ==
[2020-12-11 04:09] VITALS: BMI 25.1
[2020-12-11 05:34] LABS: BASO % 1.2 % (0-2.0); EOS % 11.1 % (0-4.5); HEMATOCRIT 36.7 % (35.4-49); HEMOGLOBIN 12.6 GM/dL (11.7-16.9); LYMPH % 14.6 % (8-40); MCH 32.2 pg (25.7-33.7); MCHC 34.4 g/dl (32.0-35.9); MEAN CELL VOLUME 93.7 fl (80-96); MEAN PLT VOLUME 8.5 fl (7.5-11.1); MONO % 7.1 % (3.8-10.2); PLATELET COUNT 157 K/MM3 (134-434); RBC 3.92 M/mm3 (4.00-5.60); RDW 12.9 % (11.9-15.9); WHITE BLOOD COUNT 9.6 K/mm3 (4.0-10.0)
[2020-12-11 05:59] LABS: CHLORIDE 103 mmol/L (98-107); SODIUM 135 mmol/L (136-145)
[2020-12-11 06:02] LABS: ALBUMIN 3.6 g/dl (3.4-5.0); ANION GAP 5 MMOL/L (8-16); BLOOD UREA NITROGEN 56.6 mg/dL (7-18); CALCIUM 9.4 mg/dL (8.5-10.1); CO2 27 mmol/L (21-32); GLUCOSE,RANDOM 220 mg/dL (74-106)
[2020-12-11 06:05] LABS: SGOT/AST 26 U/L (15-37); SGPT/ALT 38 U/L (13-61)
[2020-12-11 06:07] LABS: BILIRUBIN,TOTAL 0.9 mg/dL (0.2-1); TOT PROT 7.4 g/dl (6.4-8.2)
[2020-12-11 06:08] LABS: ALK PHOS 181 U/L (45-117)
[2020-12-11 06:10] LABS: N-TERMINAL BNP 10304.3 pg/ml (5-125)
[2020-12-11 06:24] LABS: CREATININE 8.5 mg/dL (0.55-1.3)
[2020-12-11] MEDS ORDERED: FUROSEMIDE 40 MG/4 ML INJECTABLE VIAL IVPUSH ONE (08:49)
[2020-12-11] MEDS: SODIUM BICARBONATE 650 MG TABLET PO SCH (11:30)
[2020-12-11] MEDS: ASPIRIN 81 MG CHEWABLE TABLETS PO SCH (11:30)
[2020-12-11] MEDS ORDERED: ASPIRIN COATED 81 MG TABLET.EC ONE (12:00)
[2020-12-11] MEDS: SEVELAMER CARBONATE 800 MG TAB (FP) PO SCH ×2 (12:00→18:14)
[2020-12-11] MEDS ORDERED: SODIUM CHLORIDE 250 ML IV PRN (12:17)
[2020-12-11] MEDS: INSULIN SLIDING SCALE (NOVOLOG) 1 VIAL SQ SCH ×3 (13:29→23:06)
[2020-12-11] MEDS: amLODIPine BESYLATE 10 MG TABLET (FP) PO SCH (13:29)
[2020-12-11] MEDS: HEPARIN NA (PORCINE) 5,000 UNITS/ML 1ML VIAL SQ SCH ×2 (14:00→23:06)
[2020-12-11] MEDS: ALBUMIN HUMAN 25% 12.5 GM/50 ML VIAL IVPB SCH ×4 (16:19→17:29)
[2020-12-11] MEDS: ATORVASTATIN CA 40 MG TABLET (FP) PO SCH (23:06)
[2020-12-12] MEDS: HEPARIN NA (PORCINE) 5,000 UNITS/ML 1ML VIAL SQ SCH ×3 (06:19→22:37)
[2020-12-12] MEDS: INSULIN SLIDING SCALE (NOVOLOG) 1 VIAL SQ SCH ×4 (06:19→22:37)
[2020-12-12] MEDS: SEVELAMER CARBONATE 800 MG TAB (FP) PO SCH ×3 (08:54→17:36)
[2020-12-12 08:58] LABS: BASO % 1.9 % (0-2.0); EOS % 7.9 % (0-4.5); HEMATOCRIT 33.4 % (35.4-49); HEMOGLOBIN 11.8 GM/dL (11.7-16.9); LYMPH % 23.2 % (8-40); MCH 32.7 pg (25.7-33.7); MCHC 35.3 g/dl (32.0-35.9); MEAN CELL VOLUME 92.6 fl (80-96); MONO % 10.5 % (3.8-10.2); NEUT % 56.5 % (42.8-82.8); PLATELET COUNT 135 K/MM3 (134-434); RBC 3.61 M/mm3 (4.00-5.60); RDW 13.1 % (11.9-15.9); WHITE BLOOD COUNT 6.9 K/mm3 (4.0-10.0)
[2020-12-12 09:22] LABS: POTASSIUM 4.2 mmol/L (3.5-5.1)
[2020-12-12 09:26] LABS: ALBUMIN 3.4 g/dl (3.4-5.0); BLOOD UREA NITROGEN 34.4 mg/dL (7-18); CALCIUM 8.6 mg/dL (8.5-10.1); MAGNESIUM 2.1 mg/dL (1.8-2.4)
[2020-12-12 09:30] LABS: CREATININE 6.2 mg/dL (0.55-1.3); PHOSPHOROUS 3.4 mg/dL (2.5-4.9)
[2020-12-12 09:31] LABS: TOT PROT 6.7 g/dl (6.4-8.2)
[2020-12-12 09:35] LABS: BILIRUBIN,TOTAL 1.6 mg/dL (0.2-1)
[2020-12-12] MEDS: amLODIPine BESYLATE 10 MG TABLET (FP) PO SCH (09:39)
[2020-12-12] MEDS: SODIUM BICARBONATE 650 MG TABLET PO SCH (09:39)
[2020-12-12] MEDS: ASPIRIN 81 MG CHEWABLE TABLETS PO SCH (09:39)
[2020-12-12] MEDS ORDERED: SODIUM CHLORIDE 250 ML IV PRN (13:01)
[2020-12-12] MEDS: TORSEMIDE 20 MG TABLET (FP) PO SCH (15:17)
[2020-12-12] MEDS: ATORVASTATIN CA 40 MG TABLET (FP) PO SCH (22:37)
[2020-12-13] MEDS: INSULIN SLIDING SCALE (NOVOLOG) 1 VIAL SQ SCH ×2 (06:02→12:58)
[2020-12-13] MEDS: HEPARIN NA (PORCINE) 5,000 UNITS/ML 1ML VIAL SQ SCH ×2 (06:03→13:04)
[2020-12-13 11:43] LABS: CALCIUM 8.7 mg/dL (8.5-10.1)
[2020-12-13 11:44] LABS: BLOOD UREA NITROGEN 50.4 mg/dL (7-18)
[2020-12-13] MEDS: TORSEMIDE 20 MG TABLET (FP) PO SCH (12:54)
[2020-12-13] MEDS: SODIUM BICARBONATE 650 MG TABLET PO SCH (12:54)
[2020-12-13] MEDS: amLODIPine BESYLATE 10 MG TABLET (FP) PO SCH (12:54)
[2020-12-13] MEDS: SEVELAMER CARBONATE 800 MG TAB (FP) PO SCH ×2 (12:54→12:55)
[2020-12-13] MEDS: ASPIRIN 81 MG CHEWABLE TABLETS PO SCH (12:55)
[2020-12-13 14:04] VITALS: BP 114/55; PULSE 74; TEMP 97.7
== END 2020-12-13 16:52 | disposition home or self-care (01) | DRG 291 ==
LOC: JER 03:46 → JERBED 07:10 → J6S 17:48
PROVIDERS: ADMIT Internal Medicine; ATTEND Internal Medicine
PROC: 5A1D70Z Performance of Urinary Filtration, Intermittent, Less than 6 Hours Per Day (ICD-10-PCS; principal; 2020-12-11)
PROC: 5A1D70Z Performance of Urinary Filtration, Intermittent, Less than 6 Hours Per Day (ICD-10-PCS; 2020-12-13)
DX: I13.2 Hypertensive heart and chronic kidney disease with heart failure and with stage 5 chronic kidney disease, or end stage renal disease (principal); I50.23 Acute on chronic systolic (congestive) heart failure; N18.6 End stage renal disease; I25.10 Atherosclerotic heart disease of native coronary artery without angina pectoris; E78.5 Hyperlipidemia, unspecified; N40.0 Benign prostatic hyperplasia without lower urinary tract symptoms; N25.0 Renal osteodystrophy; E87.70 Fluid overload, unspecified; E11.22 Type 2 diabetes mellitus with diabetic chronic kidney disease; Z99.2 Dependence on renal dialysis
CPT/HCPCS: 36415; 71046-TC-FY; 80048; 80053; 82550; 82553; 82962; 83735; 83880; 84100; 84484; 85025; 86803; 87340; 87804; 93005; 93010; 93306-TC; 99285-25; C9803; J1644; P9047; U0003

== ENCOUNTER 2021-02-11 14:17 | Inpatient (IN) | payer OTHER ==
[2021-02-11 14:37] VITALS: BMI 23.4
[2021-02-11 15:23] LABS: EOS % 9.2 % (0-4.5); HEMATOCRIT 27.8 % (35.4-49); HEMOGLOBIN 9.7 GM/dL (11.7-16.9); LYMPH % 15.1 % (8-40); MCH 32.7 pg (25.7-33.7); MEAN CELL VOLUME 93.5 fl (80-96); MEAN PLT VOLUME 8.3 fl (7.5-11.1); MONO % 7.9 % (3.8-10.2); NEUT % 66.8 % (42.8-82.8); PLATELET COUNT 133 K/MM3 (134-434); RBC 2.97 M/mm3 (4.00-5.60); RDW 15.8 % (11.9-15.9)
[2021-02-11 15:30] LABS: INR 1.08 (0.83-1.09)
[2021-02-11 15:33] LABS: ACTIVATED PTT 30.2 SECONDS (25.2-36.5)
[2021-02-11 15:40] LABS: CHLORIDE 103 mmol/L (98-107); SODIUM 135 mmol/L (136-145)
[2021-02-11 15:42] LABS: GLUCOSE,RANDOM 214 mg/dL (74-106)
[2021-02-11 15:43] LABS: ALBUMIN 3.6 g/dl (3.4-5.0); ANION GAP 10 MMOL/L (8-16); BLOOD UREA NITROGEN 62.6 mg/dL (7-18); CO2 22 mmol/L (21-32); MAGNESIUM 2.2 mg/dL (1.8-2.4)
[2021-02-11] MEDS ORDERED: FUROSEMIDE 40 MG/4 ML INJECTABLE VIAL IVPUSH ONE (15:44)
[2021-02-11 15:46] LABS: SGOT/AST 34 U/L (15-37); SGPT/ALT 31 U/L (13-61)
[2021-02-11 15:47] LABS: BILIRUBIN,TOTAL 1.3 mg/dL (0.2-1); TOT PROT 7.3 g/dl (6.4-8.2)
[2021-02-11 15:49] LABS: ALK PHOS 146 U/L (45-117); LDH 310 U/L (87-246)
[2021-02-11] MEDS ORDERED: FUROSEMIDE 40 MG/4 ML INJECTABLE VIAL ONE (15:50)
[2021-02-11 15:51] LABS: N-TERMINAL BNP 9774.8 pg/ml (5-450)
[2021-02-11 15:56] LABS: CREATININE 8.4 mg/dL (0.55-1.3)
[2021-02-11] MEDS ORDERED: amLODIPine BESYLATE 10 MG TABLET (FP) PO SCH (17:45)
[2021-02-11] MEDS ORDERED: SODIUM BICARBONATE 650 MG TABLET PO SCH (17:45)
[2021-02-11 17:54] LABS: EPI CELLS 0 /uL (0-25.1); HYALINE CASTS 0 /uL (0-3.1); URINE APPEARANCE CLEAR; URINE BACTERIA 3 /uL (0-1359); URINE BILIRUBIN NEGATIVE (NEGATIVE); URINE COLOR YELLOW; URINE GLUCOSE (UA) 2+ (NEGATIVE); URINE KETONE NEGATIVE (NEGATIVE); URINE LEUK ESTERASE NEGATIVE (NEGATIVE); URINE NITRITE NEGATIVE (NEGATIVE); URINE PROTEIN 2+ (NEGATIVE); URINE RBC 25 /uL (0-23.9); URINE UROBILINOGEN 0.2 mg/dL (0.2-1.0); URINE WBC 0 /uL (0-25.8)
[2021-02-11] MEDS ORDERED: ASPIRIN 81 MG CHEWABLE TABLETS ONE (20:48)
[2021-02-11] MEDS: ASPIRIN 81 MG CHEWABLE TABLETS PO SCH (21:12)
[2021-02-11] MEDS ORDERED: ATORVASTATIN CA 40 MG TABLET (FP) PO SCH (22:00)
[2021-02-11] MEDS ORDERED: HEPARIN NA (PORCINE) 5,000 UNITS/ML 1ML VIAL SQ SCH (22:00)
[2021-02-11] MEDS ORDERED: ATORVASTATIN CA 40 MG TABLET (FP) ONE (22:28)
[2021-02-11] MEDS ORDERED: HEPARIN NA (PORCINE) 5,000 UNITS/ML 1ML VIAL ONE (22:29)
[2021-02-11] MEDS: INSULIN (LEVEMIR) 100 UNITS/ML UNITS SQ SCH (22:42)
[2021-02-11] MEDS: INSULIN SLIDING SCALE (NOVOLOG) 1 VIAL SQ SCH (22:43)
[2021-02-12 06:39] LABS: BASO % 0.9 % (0-2.0); EOS % 8.8 % (0-4.5); HEMATOCRIT 26.1 % (35.4-49); HEMOGLOBIN 9.2 GM/dL (11.7-16.9); LYMPH % 11.8 % (8-40); MCH 32.9 pg (25.7-33.7); MCHC 35.3 g/dl (32.0-35.9); MEAN CELL VOLUME 93.2 fl (80-96); MEAN PLT VOLUME 7.8 fl (7.5-11.1); MONO % 7.5 % (3.8-10.2); PLATELET COUNT 131 K/MM3 (134-434); RDW 15.5 % (11.9-15.9); WHITE BLOOD COUNT 7.8 K/mm3 (4.0-10.0)
[2021-02-12 07:18] LABS: CHLORIDE 104 mmol/L (98-107); SODIUM 139 mmol/L (136-145)
[2021-02-12] MEDS ORDERED: SODIUM CHLORIDE 250 ML IV PRN (07:24)
[2021-02-12 07:34] LABS: ANION GAP 10 MMOL/L (8-16); CO2 24 mmol/L (21-32)
[2021-02-12 07:35] LABS: GLUCOSE,RANDOM 60 mg/dL (74-106); MAGNESIUM 2.3 mg/dL (1.8-2.4)
[2021-02-12 07:37] LABS: CHOLESTEROL 123 mg/dL (50-200)
[2021-02-12 07:38] LABS: PHOSPHOROUS 4.1 mg/dL (2.5-4.9); TRIGLYCERIDES 66 mg/dL (0-150)
[2021-02-12 07:39] LABS: LDL CHOLESTEROL (ONLY SJRH) 48 mg/dL (5-100)
[2021-02-12 07:41] LABS: HDL CHOLESTEROL 53 mg/dL (40-60)
[2021-02-12 07:54] LABS: CREATININE 9.3 mg/dL (0.55-1.3)
[2021-02-12] MEDS ORDERED: PT OWN MED DRAWER 7, Y5N ONE (08:22)
[2021-02-12] MEDS: SEVELAMER CARBONATE 800 MG TAB (FP) PO SCH ×3 (08:25→16:31)
[2021-02-12] MEDS: INSULIN SLIDING SCALE (NOVOLOG) 1 VIAL SQ SCH ×4 (08:35→21:49)
[2021-02-12] MEDS ORDERED: ASPIRIN 81 MG CHEWABLE TABLETS ONE (09:21)
[2021-02-12] MEDS ORDERED: amLODIPine BESYLATE 5 MG TABLET (FP) ONE (09:21)
[2021-02-12] MEDS: ASPIRIN 81 MG CHEWABLE TABLETS PO SCH (09:28)
[2021-02-12] MEDS: amLODIPine BESYLATE 5 MG TABLET (FP) PO SCH (09:29)
[2021-02-12] MEDS: HEPARIN NA (PORCINE) 5,000 UNITS/ML 1ML VIAL SQ SCH ×2 (15:00→21:49)
[2021-02-12] MEDS ORDERED: HEPARIN NA (PORCINE) 5,000 UNITS/ML 1ML VIAL ONE (15:16)
[2021-02-12] MEDS ORDERED: INSULIN (NOVOLOG) ASPART 100 UNITS/ML 10ML VIAL ONE (16:23)
[2021-02-12] MEDS ORDERED: EPOETIN ALFA-EPBX 4,000 UNIT/ML VIAL SQ ONE (16:29)
[2021-02-12] MEDS: INSULIN (LEVEMIR) 100 UNITS/ML UNITS SQ SCH (21:49)
[2021-02-12] MEDS ORDERED: ATORVASTATIN CA 80 MG TABLET (FP) PO SCH (22:00)
[2021-02-13] MEDS: HEPARIN NA (PORCINE) 5,000 UNITS/ML 1ML VIAL SQ SCH ×2 (06:43→14:20)
[2021-02-13] MEDS: INSULIN SLIDING SCALE (NOVOLOG) 1 VIAL SQ SCH ×2 (06:45→11:24)
[2021-02-13 07:42] LABS: HEMATOCRIT 24.7 % (35.4-49); HEMOGLOBIN 8.8 GM/dL (11.7-16.9); MCH 33.1 pg (25.7-33.7); MCHC 35.6 g/dl (32.0-35.9); MEAN CELL VOLUME 93.1 fl (80-96); MEAN PLT VOLUME 8.3 fl (7.5-11.1); PLATELET COUNT 119 K/MM3 (134-434); RBC 2.65 M/mm3 (4.00-5.60); RDW 15.9 % (11.9-15.9); WHITE BLOOD COUNT 6.3 K/mm3 (4.0-10.0)
[2021-02-13 08:03] LABS: CALCIUM 8.6 mg/dL (8.5-10.1)
[2021-02-13 08:07] LABS: CREATININE 6.5 mg/dL (0.55-1.3); PHOSPHOROUS 3.4 mg/dL (2.5-4.9)
[2021-02-13 08:10] LABS: BLOOD UREA NITROGEN 38.3 mg/dL (7-18)
[2021-02-13] MEDS: SEVELAMER CARBONATE 800 MG TAB (FP) PO SCH ×3 (09:19→18:07)
[2021-02-13] MEDS: amLODIPine BESYLATE 5 MG TABLET (FP) PO SCH (09:19)
[2021-02-13] MEDS: ASPIRIN 81 MG CHEWABLE TABLETS PO SCH (09:20)
[2021-02-13 14:11] VITALS: BP 134/50; PULSE 62; TEMP 98.1
== END 2021-02-13 18:45 | disposition home or self-care (01) | DRG 291 ==
LOC: JER 14:17 → JERBED 16:24 → J4W 02-12 15:53 → J6S 02-13 12:55
PROVIDERS: ADMIT Internal Medicine; ATTEND Internal Medicine
PROC: 5A1D70Z Performance of Urinary Filtration, Intermittent, Less than 6 Hours Per Day (ICD-10-PCS; principal; 2021-02-12)
DX: I13.2 Hypertensive heart and chronic kidney disease with heart failure and with stage 5 chronic kidney disease, or end stage renal disease (principal); N18.6 End stage renal disease; I50.23 Acute on chronic systolic (congestive) heart failure; N17.9 Acute kidney failure, unspecified; I25.10 Atherosclerotic heart disease of native coronary artery without angina pectoris; E78.5 Hyperlipidemia, unspecified; E11.22 Type 2 diabetes mellitus with diabetic chronic kidney disease; E78.00 Pure hypercholesterolemia, unspecified; N25.0 Renal osteodystrophy; D63.1 Anemia in chronic kidney disease; N40.0 Benign prostatic hyperplasia without lower urinary tract symptoms; Z95.5 Presence of coronary angioplasty implant and graft; Z99.2 Dependence on renal dialysis; I25.2 Old myocardial infarction
CPT/HCPCS: 36415; 71045-TC-FY; 80048; 80053; 80061; 81003; 82550; 82728; 82962; 83036; 83615; 83721; 83735; 83880; 84100; 84443; 84484; 85025; 85027; 85610; 85730; 86140; 86803; 87086; 87340; 93005; 93010; 99285-25; C9803; J1644; U0003; U0005

== ENCOUNTER 2021-03-06 09:30 | Inpatient (IN) | payer OTHER ==
[2021-03-06 10:42] LABS: BASO % 1.3 % (0-2.0); EOS % 13.3 % (0-4.5); HEMATOCRIT 27.4 % (35.4-49); HEMOGLOBIN 9.5 GM/dL (11.7-16.9); LYMPH % 15.1 % (8-40); MCH 32.7 pg (25.7-33.7); MCHC 34.6 g/dl (32.0-35.9); MEAN CELL VOLUME 94.7 fl (80-96); MEAN PLT VOLUME 7.5 fl (7.5-11.1); MONO % 8.5 % (3.8-10.2); NEUT % 61.8 % (42.8-82.8); PLATELET COUNT 128 K/MM3 (134-434); RBC 2.89 M/mm3 (4.00-5.60); WHITE BLOOD COUNT 6.5 K/mm3 (4.0-10.0)
[2021-03-06 11:11] LABS: CALCIUM 8.6 mg/dL (8.5-10.1)
[2021-03-06 11:12] LABS: ALBUMIN 3.5 g/dl (3.4-5.0); BLOOD UREA NITROGEN 36.6 mg/dL (7-18)
[2021-03-06 11:15] LABS: BILIRUBIN,TOTAL 1.6 mg/dL (0.2-1)
[2021-03-06 11:18] LABS: TOT PROT 7.2 g/dl (6.4-8.2)
[2021-03-06 11:19] LABS: N-TERMINAL BNP 11071.6 pg/ml (5-450)
[2021-03-06 11:27] LABS: CREATININE 6.6 mg/dL (0.55-1.3)
[2021-03-06] MEDS ORDERED: FUROSEMIDE 40 MG/4 ML INJECTABLE VIAL IVPUSH ONE (11:58)
[2021-03-06] MEDS ORDERED: FUROSEMIDE 40 MG/4 ML INJECTABLE VIAL ONE (12:28)
[2021-03-06] MEDS ORDERED: SODIUM CHLORIDE 250 ML IV PRN (13:42)
[2021-03-06 20:38] VITALS: BMI 24.5
[2021-03-06] MEDS: INSULIN SLIDING SCALE (NOVOLOG) 1 VIAL SQ SCH (23:52)
[2021-03-07] MEDS: HEPARIN NA (PORCINE) 5,000 UNITS/ML 1ML VIAL SQ SCH ×5 (03:31→17:59)
[2021-03-07] MEDS: INSULIN SLIDING SCALE (NOVOLOG) 1 VIAL SQ SCH ×4 (07:08→21:53)
[2021-03-07] MEDS ORDERED: SODIUM CHLORIDE 250 ML IV PRN (08:07)
[2021-03-07] MEDS: SEVELAMER CARBONATE 800 MG TAB (FP) PO SCH ×4 (08:43→17:24)
[2021-03-07 09:05] LABS: BASO % 1.2 % (0-2.0); EOS % 13.7 % (0-4.5); HEMATOCRIT 30.4 % (35.4-49); HEMOGLOBIN 10.8 GM/dL (11.7-16.9); LYMPH % 19.2 % (8-40); MCH 32.9 pg (25.7-33.7); MCHC 35.4 g/dl (32.0-35.9); MEAN PLT VOLUME 7.9 fl (7.5-11.1); MONO % 8.7 % (3.8-10.2); NEUT % 57.2 % (42.8-82.8); PLATELET COUNT 148 K/MM3 (134-434); RBC 3.27 M/mm3 (4.00-5.60); RDW 15.8 % (11.9-15.9); WHITE BLOOD COUNT 7.7 K/mm3 (4.0-10.0)
[2021-03-07 09:45] LABS: CHLORIDE 99 mmol/L (98-107); SODIUM 136 mmol/L (136-145)
[2021-03-07 10:04] LABS: BLOOD UREA NITROGEN 50.5 mg/dL (7-18)
[2021-03-07 10:06] LABS: ALBUMIN 3.6 g/dl (3.4-5.0); ANION GAP 14 MMOL/L (8-16); CO2 23 mmol/L (21-32); GLUCOSE,RANDOM 108 mg/dL (74-106); MAGNESIUM 2.2 mg/dL (1.8-2.4)
[2021-03-07 10:09] LABS: PHOSPHOROUS 4.1 mg/dL (2.5-4.9); SGOT/AST 15 U/L (15-37); SGPT/ALT 16 U/L (13-61); TOT PROT 7.5 g/dl (6.4-8.2)
[2021-03-07 10:10] LABS: ALK PHOS 103 U/L (45-117)
[2021-03-07 10:28] LABS: BILIRUBIN,TOTAL 1.7 mg/dL (0.2-1); CREATININE 8.1 mg/dL (0.55-1.3)
[2021-03-07] MEDS ORDERED: PT OWN MED DRAWER 7, Y5N ONE (11:41)
[2021-03-07] MEDS: ASPIRIN 81 MG CHEWABLE TABLETS PO SCH (13:02)
[2021-03-07] MEDS: amLODIPine BESYLATE 10 MG TABLET (FP) PO SCH (14:11)
[2021-03-07] MEDS: ATORVASTATIN CA 40 MG TABLET (FP) PO SCH (21:53)
[2021-03-08] MEDS: HEPARIN NA (PORCINE) 5,000 UNITS/ML 1ML VIAL SQ SCH ×3 (02:33→17:26)
[2021-03-08] MEDS: INSULIN SLIDING SCALE (NOVOLOG) 1 VIAL SQ SCH ×4 (06:20→21:27)
[2021-03-08 07:39] LABS: BASO % 2.1 % (0-2.0); HEMATOCRIT 31.3 % (35.4-49); LYMPH % 20.9 % (8-40); MCH 32.7 pg (25.7-33.7); MEAN CELL VOLUME 93.5 fl (80-96); MEAN PLT VOLUME 7.8 fl (7.5-11.1); MONO % 8.9 % (3.8-10.2); NEUT % 55.1 % (42.8-82.8); PLATELET COUNT 156 K/MM3 (134-434); RBC 3.35 M/mm3 (4.00-5.60); RDW 15.4 % (11.9-15.9); WHITE BLOOD COUNT 7.5 K/mm3 (4.0-10.0)
[2021-03-08 08:04] LABS: ALBUMIN 3.4 g/dl (3.4-5.0); BLOOD UREA NITROGEN 42.7 mg/dL (7-18); CALCIUM 9.4 mg/dL (8.5-10.1)
[2021-03-08 08:05] LABS: MAGNESIUM 1.9 mg/dL (1.8-2.4)
[2021-03-08 08:07] LABS: CREATININE 7.1 mg/dL (0.55-1.3)
[2021-03-08 08:08] LABS: PHOSPHOROUS 3.7 mg/dL (2.5-4.9)
[2021-03-08 08:09] LABS: BILIRUBIN,TOTAL 1.7 mg/dL (0.2-1); TOT PROT 7.4 g/dl (6.4-8.2)
[2021-03-08] MEDS: SEVELAMER CARBONATE 800 MG TAB (FP) PO SCH ×3 (09:11→16:51)
[2021-03-08] MEDS: ASPIRIN 81 MG CHEWABLE TABLETS PO SCH (09:11)
[2021-03-08] MEDS: amLODIPine BESYLATE 10 MG TABLET (FP) PO SCH (09:11)
[2021-03-08] MEDS ORDERED: INSULIN (NOVOLOG) ASPART 100 UNITS/ML 10ML VIAL ONE (11:25)
[2021-03-08] MEDS ORDERED: TORSEMIDE 20 MG TABLET (FP) PO ONE (16:16)
[2021-03-08] MEDS ORDERED: SODIUM CHLORIDE 250 ML IV PRN (16:17)
[2021-03-08] MEDS: ATORVASTATIN CA 40 MG TABLET (FP) PO SCH (21:27)
[2021-03-09] MEDS: HEPARIN NA (PORCINE) 5,000 UNITS/ML 1ML VIAL SQ SCH ×3 (02:25→17:12)
[2021-03-09] MEDS: INSULIN SLIDING SCALE (NOVOLOG) 1 VIAL SQ SCH ×3 (06:28→17:12)
[2021-03-09] MEDS: SEVELAMER CARBONATE 800 MG TAB (FP) PO SCH ×3 (07:52→17:12)
[2021-03-09 08:58] LABS: BASO % 1.8 % (0-2.0); EOS % 13.7 % (0-4.5); HEMATOCRIT 31.6 % (35.4-49); LYMPH % 21.2 % (8-40); MCH 32.7 pg (25.7-33.7); MEAN CELL VOLUME 93.5 fl (80-96); MONO % 8.8 % (3.8-10.2); NEUT % 54.5 % (42.8-82.8); PLATELET COUNT 163 K/MM3 (134-434); RBC 3.38 M/mm3 (4.00-5.60); RDW 15.2 % (11.9-15.9); WHITE BLOOD COUNT 7.7 K/mm3 (4.0-10.0)
[2021-03-09 09:26] LABS: CHLORIDE 94 mmol/L (98-107); SODIUM 133 mmol/L (136-145)
[2021-03-09 09:36] LABS: ALBUMIN 3.6 g/dl (3.4-5.0); ANION GAP 15 MMOL/L (8-16); CO2 24 mmol/L (21-32); GLUCOSE,RANDOM 150 mg/dL (74-106)
[2021-03-09 09:37] LABS: PHOSPHOROUS 4.7 mg/dL (2.5-4.9)
[2021-03-09 09:38] LABS: BILIRUBIN,TOTAL 1.1 mg/dL (0.2-1); TOT PROT 7.4 g/dl (6.4-8.2)
[2021-03-09 09:39] LABS: ALK PHOS 118 U/L (45-117); SGOT/AST 17 U/L (15-37); SGPT/ALT 18 U/L (13-61)
[2021-03-09 09:41] LABS: BLOOD UREA NITROGEN 69.2 mg/dL (7-18)
[2021-03-09] MEDS: amLODIPine BESYLATE 10 MG TABLET (FP) PO SCH (12:45)
[2021-03-09] MEDS: ASPIRIN 81 MG CHEWABLE TABLETS PO SCH (12:45)
[2021-03-09 14:45] VITALS: BP 125/61; PULSE 78; TEMP 98.1
[2021-03-10] MEDS ORDERED: TORSEMIDE 20 MG TABLET (FP) PO SCH (10:00)
== END 2021-03-09 18:43 | disposition home or self-care (01) | DRG 291 ==
LOC: JER 09:30 → JERBED 11:50 → J6S 18:41
PROVIDERS: ATTEND Internal Medicine
PROC: 5A1D70Z Performance of Urinary Filtration, Intermittent, Less than 6 Hours Per Day (ICD-10-PCS; principal; 2021-03-09)
DX: I13.2 Hypertensive heart and chronic kidney disease with heart failure and with stage 5 chronic kidney disease, or end stage renal disease (principal); N18.6 End stage renal disease; I50.23 Acute on chronic systolic (congestive) heart failure; E11.22 Type 2 diabetes mellitus with diabetic chronic kidney disease; Z99.2 Dependence on renal dialysis; E78.5 Hyperlipidemia, unspecified; E87.70 Fluid overload, unspecified; I25.10 Atherosclerotic heart disease of native coronary artery without angina pectoris; N25.0 Renal osteodystrophy; N40.0 Benign prostatic hyperplasia without lower urinary tract symptoms; Z95.5 Presence of coronary angioplasty implant and graft
CPT/HCPCS: 36415; 71045-TC-FY; 71046-TC-FY; 71250-TC; 80053; 82550; 82962; 83735; 83880; 84100; 84443; 84484; 85025; 86769; 93005; 93010; 99285-25; C9803; J1644; U0003; U0005

== ENCOUNTER 2023-04-14 14:26 | Observation (INO) | payer OTHER ==
[2023-04-14 14:43] VITALS: RESP 18; BMI 21.9
[2023-04-14 16:06] LABS: BASO % 1.7 % (0-2.0); EOS % 11.6 % (0-4.5); HEMATOCRIT 29.4 % (35.4-49); LYMPH % 19.2 % (8-40); MCH 32.9 pg (25.7-33.7); MEAN CELL VOLUME 96.9 fl (80-96); MEAN PLT VOLUME 8.2 fl (7.5-11.1); MONO % 7.8 % (3.8-10.2); NEUT % 59.7 % (42.8-82.8); PLATELET COUNT 146 10^3/uL (134-434); RBC 3.04 M/mm3 (4.00-5.60); RDW 14.8 % (11.9-15.9); WHITE BLOOD COUNT 6.3 K/mm3 (4.0-10.0)
[2023-04-14] MEDS ORDERED: INSULIN SLIDING SCALE (NOVOLOG) 1 VIAL SQ SCH (16:30)
[2023-04-14 16:38] LABS: CHLORIDE 105 mmol/L (98-107); POTASSIUM 5.3 mmol/L (3.5-5.1); SODIUM 137 mmol/L (136-145)
[2023-04-14 16:40] LABS: CALCIUM 8.5 mg/dL (8.5-10.1); GLUCOSE,RANDOM 390 mg/dL (74-106)
[2023-04-14 16:41] LABS: ALBUMIN 3.2 g/dl (3.4-5.0); ANION GAP 11 MMOL/L (8-16); BLOOD UREA NITROGEN 70.2 mg/dL (7-18); CO2 21 mmol/L (21-32); MAGNESIUM 2.1 mg/dL (1.8-2.4)
[2023-04-14 16:43] LABS: SGPT/ALT 20 U/L (13-61)
[2023-04-14 16:44] LABS: PHOSPHOROUS 4.2 mg/dL (2.5-4.9); SGOT/AST 12 U/L (15-37)
[2023-04-14 16:45] LABS: BILIRUBIN,TOTAL 0.4 mg/dL (0.2-1); TOT PROT 6.7 g/dl (6.4-8.2)
[2023-04-14 16:46] LABS: ALK PHOS 134 U/L (45-117)
[2023-04-14 16:47] LABS: CREATININE 10.3 mg/dL (0.55-1.3); INR 1.02 (0.83-1.09); PROTHROMBIN TIME (PATIENT) 11.8 SEC (9.7-13.0)
[2023-04-14 16:50] LABS: ACTIVATED PTT 28.4 SECONDS (25.2-36.5)
[2023-04-14] MEDS ORDERED: SEVELAMER CARBONATE 800 MG TAB (FP) PO SCH (17:30)
[2023-04-14] MEDS ORDERED: SODIUM CHLORIDE 250 ML IV PRN (18:07)
[2023-04-14] MEDS ORDERED: EPOETIN ALFA-EPBX 4,000 UNIT/ML VIAL SQ ONE (18:15)
[2023-04-14] MEDS ORDERED: ATORVASTATIN CA 40 MG TABLET (FP) PO SCH (22:00)
[2023-04-14] MEDS ORDERED: PATIENT'S OWN MEDICATION (NON-FORMULARY) (Sevelamer Hcl [Sevelamer Hcl] 800 MG Tablet) PO SCH (22:00)
[2023-04-14] MEDS ORDERED: INSULIN (LEVEMIR) 100 UNITS/ML UNITS SQ SCH (22:00)
[2023-04-14 22:07] VITALS: BP 142/75; PULSE 84; TEMP 98.2
[2023-04-15] MEDS ORDERED: PATIENT'S OWN MEDICATION (NON-FORMULARY) (Omeprazole 20 MG Capsule.Dr) PO SCH (10:00)
[2023-04-15] MEDS ORDERED: SODIUM BICARBONATE 650 MG TABLET PO SCH (10:00)
[2023-04-15] MEDS ORDERED: PANTOPRAZOLE 40 MG TABLET PO SCH (10:00)
[2023-04-15] MEDS ORDERED: TORSEMIDE 20 MG TABLET (FP) PO SCH (10:00)
[2023-04-15] MEDS ORDERED: amLODIPine BESYLATE 10 MG TABLET (FP) PO SCH (10:00)
[2023-04-15] MEDS ORDERED: ATORVASTATIN CA 40 MG TABLET (FP) PO SCH (10:00)
== END 2023-04-14 22:18 | disposition home or self-care (01) ==
LOC: JER 14:26 → JERBED 15:47 → J8W 19:10
PROVIDERS: ADMIT Internal Medicine; ATTEND Internal Medicine
PROC: 3E023GC Introduction of Other Therapeutic Substance into Muscle, Percutaneous Approach (ICD-10-PCS; principal; 2023-04-14)
DX: I13.11 Hypertensive heart and chronic kidney disease without heart failure, with stage 5 chronic kidney disease, or end stage renal disease (principal); E11.22 Type 2 diabetes mellitus with diabetic chronic kidney disease; N18.6 End stage renal disease; Z99.2 Dependence on renal dialysis; I25.10 Atherosclerotic heart disease of native coronary artery without angina pectoris; Z87.891 Personal history of nicotine dependence
CPT/HCPCS: 36415; 71045-TC-FY; 80053; 83735; 84100; 85025; 85610; 85730; 86704; 86705; 86850; 86900; 86901; 87340; 87517; 87522; 93005; 93010; 96372; 99285-25; G0378; Q5106

== ENCOUNTER 2023-10-22 10:53 | Inpatient (IN) | payer OTHER ==
[2023-10-22 13:32] LABS: EPI CELLS 6 /uL (0-25.1); HYALINE CASTS 0 /uL (0-3.1); PH,URINE >= 9.0 (5.0-8.0); URINE APPEARANCE CLEAR; URINE BACTERIA 15 /uL (0-1359); URINE BILIRUBIN NEGATIVE (NEGATIVE); URINE COLOR YELLOW; URINE GLUCOSE (UA) 1+ (NEGATIVE); URINE KETONE NEGATIVE (NEGATIVE); URINE LEUK ESTERASE NEGATIVE (NEGATIVE); URINE NITRITE NEGATIVE (NEGATIVE); URINE PROTEIN 2+ (NEGATIVE); URINE RBC 3 /uL (0-23.9); URINE UROBILINOGEN 0.2 mg/dL (0.2-1.0); URINE WBC 10 /uL (0-25.8)
[2023-10-22 13:36] LABS: BASO % 1.4 % (0-2.0); EOS % 9.4 % (0-4.5); HEMOGLOBIN 11.7 GM/dL (11.7-16.9); LYMPH % 16.4 % (8-40); MCHC 33.4 g/dl (32.0-35.9); MEAN CELL VOLUME 98.9 fl (80-96); MONO % 11.5 % (3.8-10.2); NEUT % 61.3 % (42.8-82.8); PLATELET COUNT 150 10^3/uL (134-434); RBC 3.54 M/mm3 (4.00-5.60); RDW 15.2 % (11.9-15.9); WHITE BLOOD COUNT 5.9 K/mm3 (4.0-10.0)
[2023-10-22 13:45] LABS: INR 1.09 (0.83-1.09); PROTHROMBIN TIME (PATIENT) 12.6 SEC (9.7-13.0)
[2023-10-22 13:47] LABS: ACTIVATED PTT 32.6 SECONDS (25.2-36.5)
[2023-10-22 13:54] LABS: MAGNESIUM 2.1 mg/dL (1.8-2.4)
[2023-10-22 13:58] LABS: PHOSPHOROUS 2.9 mg/dL (2.5-4.9)
[2023-10-22 14:10] LABS: POTASSIUM 3.6 mmol/L (3.5-5.1)
[2023-10-22 14:11] LABS: ALBUMIN 3.4 g/dl (3.4-5.0); BLOOD UREA NITROGEN 17.7 mg/dL (7-18)
[2023-10-22 14:14] LABS: CREATININE 4.4 mg/dL (0.55-1.3)
[2023-10-22 14:15] LABS: BILIRUBIN,TOTAL 0.9 mg/dL (0.2-1)
[2023-10-22 14:16] LABS: TOT PROT 7.3 g/dl (6.4-8.2)
[2023-10-22 14:19] LABS: N-TERMINAL BNP 17418.5 pg/ml (5-450)
[2023-10-22] MEDS ORDERED: FUROSEMIDE 40 MG/4 ML INJECTABLE VIAL IVPUSH ONE (16:11)
[2023-10-22] MEDS ORDERED: FUROSEMIDE 40 MG/4 ML INJECTABLE VIAL IVPUSH SCH (16:15)
[2023-10-22] MEDS ORDERED: FUROSEMIDE 40 MG/4 ML INJECTABLE VIAL ONE (16:56)
[2023-10-22 18:12] VITALS: BMI 24.2
[2023-10-22] MEDS: INSULIN SLIDING SCALE (NOVOLOG) 1 VIAL SQ SCH ×2 (18:31→22:35)
[2023-10-22] MEDS ORDERED: HEPARIN NA (PORCINE) 5,000 UNITS/ML 1ML VIAL ONE (22:29)
[2023-10-22] MEDS: HEPARIN NA (PORCINE) 5,000 UNITS/ML 1ML VIAL SQ SCH (22:35)
[2023-10-23] MEDS ORDERED: HEPARIN NA (PORCINE) 5,000 UNITS/ML 1ML VIAL ONE (06:13)
[2023-10-23] MEDS: HEPARIN NA (PORCINE) 5,000 UNITS/ML 1ML VIAL SQ SCH ×2 (06:25→14:05)
[2023-10-23] MEDS: INSULIN SLIDING SCALE (NOVOLOG) 1 VIAL SQ SCH ×2 (07:49→12:01)
[2023-10-23] MEDS ORDERED: SODIUM CHLORIDE 250 ML IV PRN (07:52)
[2023-10-23 07:55] LABS: BASO % 0.6 % (0-2.0); EOS % 12.3 % (0-4.5); HEMATOCRIT 36.1 % (35.4-49); HEMOGLOBIN 11.9 GM/dL (11.7-16.9); LYMPH % 24.5 % (8-40); MCH 33.3 pg (25.7-33.7); MCHC 33.1 g/dl (32.0-35.9); MEAN CELL VOLUME 100.5 fl (80-96); MONO % 11.5 % (3.8-10.2); NEUT % 51.1 % (42.8-82.8); PLATELET COUNT 147 10^3/uL (134-434); RBC 3.59 M/mm3 (4.00-5.60); RDW 15.8 % (11.9-15.9)
[2023-10-23] MEDS ORDERED: HEPARIN NA (PORCINE) 5,000 UNITS/ML 1ML VIAL IVPUSH ONE (08:00)
[2023-10-23 08:17] LABS: POTASSIUM 4.1 mmol/L (3.5-5.1)
[2023-10-23 08:27] LABS: ALBUMIN 3.1 g/dl (3.4-5.0); BLOOD UREA NITROGEN 31.7 mg/dL (7-18); CALCIUM 8.4 mg/dL (8.5-10.1); MAGNESIUM 2.3 mg/dL (1.8-2.4)
[2023-10-23 08:30] LABS: CREATININE 6.2 mg/dL (0.55-1.3); PHOSPHOROUS 3.7 mg/dL (2.5-4.9)
[2023-10-23 08:32] LABS: BILIRUBIN,TOTAL 0.9 mg/dL (0.2-1); TOT PROT 7.1 g/dl (6.4-8.2)
[2023-10-23] MEDS ORDERED: ENOXAPARIN NA (PORCINE) 40 MG/0.4 ML DISP.SYRIN SQ SCH (10:00)
[2023-10-23] MEDS ORDERED: ASPIRIN 81 MG CHEWABLE TABLETS PO SCH (10:00)
[2023-10-23] MEDS ORDERED: metoPROLOL SUCCINATE 25 MG TAB.SR.24H (FP) PO SCH (10:00)
[2023-10-23 12:02] VITALS: RESP 20
[2023-10-23] MEDS ORDERED: metoPROLOL SUCCINATE 25 MG TAB.SR.24H (FP) PO ONE (12:08)
[2023-10-23] MEDS ORDERED: ASPIRIN 81 MG CHEWABLE TABLETS ONE (12:08)
[2023-10-23 15:36] VITALS: BP 139/73; PULSE 80; TEMP 98.6
[2023-10-23] MEDS ORDERED: ATORVASTATIN CA 40 MG TABLET (FP) PO SCH (22:00)
== END 2023-10-23 15:51 | disposition home or self-care (01) | DRG 291 ==
LOC: JER 10:53 → JERBED 15:11
PROVIDERS: ADMIT Internal Medicine; ATTEND Internal Medicine
PROC: 5A1D70Z Performance of Urinary Filtration, Intermittent, Less than 6 Hours Per Day (ICD-10-PCS; principal; 2023-10-23)
DX: I13.2 Hypertensive heart and chronic kidney disease with heart failure and with stage 5 chronic kidney disease, or end stage renal disease (principal); I50.33 Acute on chronic diastolic (congestive) heart failure; N18.6 End stage renal disease; E78.5 Hyperlipidemia, unspecified; E11.22 Type 2 diabetes mellitus with diabetic chronic kidney disease; J44.9 Chronic obstructive pulmonary disease, unspecified; I25.10 Atherosclerotic heart disease of native coronary artery without angina pectoris; N40.0 Benign prostatic hyperplasia without lower urinary tract symptoms; N25.0 Renal osteodystrophy; D64.9 Anemia, unspecified; Z95.5 Presence of coronary angioplasty implant and graft; Z99.2 Dependence on renal dialysis
CPT/HCPCS: 0241U-QW; 36415; 70450-TC; 71045-TC-FY; 80053; 81003; 82962; 83735; 83880; 84100; 84443; 84484; 85025; 85610; 85730; 86705; 86803; 87086; 87340; 87522; 93005; 93010; 93306-TC; 99285-25; J1644

== ENCOUNTER 2023-12-31 11:08 | Emergency (ER) | payer OTHER ==
[2023-12-31 12:13] VITALS: BP 155/68; PULSE 70; RESP 16; TEMP 97.4; BMI 21.7
[2023-12-31 12:28] LABS: BASO % 1.4 % (0-2.0); EOS % 5.7 % (0-4.5); HEMATOCRIT 30.1 % (35.4-49); MCH 32.5 pg (25.7-33.7); MCHC 33.2 g/dl (32.0-35.9); MEAN CELL VOLUME 97.9 fl (80-96); MEAN PLT VOLUME 7.5 fl (7.5-11.1); MONO % 12.3 % (3.8-10.2); NEUT % 66.6 % (42.8-82.8); PLATELET COUNT 128 10^3/uL (134-434); RBC 3.08 M/mm3 (4.00-5.60); WHITE BLOOD COUNT 5.3 K/mm3 (4.0-10.0)
[2023-12-31 12:32] LABS: INR 1.2 (0.83-1.09); PROTHROMBIN TIME (PATIENT) 13.9 SEC (9.7-13.0)
[2023-12-31 13:19] LABS: POTASSIUM 3.4 mmol/L (3.5-5.1)
[2023-12-31 13:21] LABS: BLOOD UREA NITROGEN 14.5 mg/dL (7-18); CALCIUM 8.8 mg/dL (8.5-10.1)
[2023-12-31 13:24] LABS: CREATININE 3.3 mg/dL (0.55-1.3)
[2023-12-31 13:26] LABS: BILIRUBIN,TOTAL 1.1 mg/dL (0.2-1)
[2023-12-31 15:09] LABS: EPI CELLS 5 /uL (0-25.1); HYALINE CASTS 0 /uL (0-3.1); PH,URINE >= 9.0 (5.0-8.0); URINE APPEARANCE TURBID; URINE BACTERIA 6 /uL (0-1359); URINE BILIRUBIN NEGATIVE (NEGATIVE); URINE COLOR RED; URINE GLUCOSE (UA) 1+ (NEGATIVE); URINE KETONE NEGATIVE (NEGATIVE); URINE LEUK ESTERASE TRACE (NEGATIVE); URINE NITRITE NEGATIVE (NEGATIVE); URINE PROTEIN 3+ (NEGATIVE); URINE RBC 23740 /uL (0-23.9); URINE UROBILINOGEN 0.2 mg/dL (0.2-1.0); URINE WBC 34 /uL (0-25.8)
== END 2023-12-31 17:41 | disposition home or self-care (01) ==
LOC: JER 11:08
DX: R53.1 Weakness (principal); R31.0 Gross hematuria
CPT/HCPCS: 36415; 80053; 81003; 85025; 85610; 86850; 86900; 86901; 87086; 93005; 93010; 99284-25

== ENCOUNTER 2024-01-26 07:03 | Inpatient (IN) | payer OTHER ==
[2024-01-26] MEDS ORDERED: MAG HYDROX/AL HYDROX/SIMETH 30 ML UNIT-DOSE CUP ONE (08:15)
[2024-01-26] MEDS ORDERED: SUCRALFATE 1 GM TABLET (FP) ONE (08:15)
[2024-01-26] MEDS ORDERED: FAMOTIDINE 20 MG/50 ML IVPB 20 MG/50 ML MG IVPB ONE (08:16)
[2024-01-26] MEDS: MAG HYDROX/AL HYDROX/SIMETH -MYLANTA- ORAL SUSPENSION PO ONE (08:25)
[2024-01-26] MEDS: FAMOTIDINE 20 MG/50 ML IVPB 20 MG/50 ML MG IVPB ONE (08:25)
[2024-01-26] MEDS: SUCRALFATE 1 GM TABLET (FP) PO ONE (08:25)
[2024-01-26 08:40] LABS: BASO % 0.6 % (0-2.0); EOS % 1.4 % (0-4.5); HEMATOCRIT 33.2 % (35.4-49); HEMOGLOBIN 10.9 GM/dL (11.7-16.9); LYMPH % 5.3 % (8-40); MCH 31.7 pg (25.7-33.7); MCHC 32.9 g/dl (32.0-35.9); MEAN CELL VOLUME 96.4 fl (80-96); MEAN PLT VOLUME 8.6 fl (7.5-11.1); MONO % 11.6 % (3.8-10.2); NEUT % 81.1 % (42.8-82.8); PLATELET COUNT 102 10^3/uL (134-434); RBC 3.44 M/mm3 (4.00-5.60); RDW 15.2 % (11.9-15.9); WHITE BLOOD COUNT 5.9 K/mm3 (4.0-10.0)
[2024-01-26 08:43] LABS: INR 1.14 (0.83-1.09); PROTHROMBIN TIME (PATIENT) 13.2 SEC (9.7-13.0)
[2024-01-26 08:46] LABS: ACTIVATED PTT 39.9 SECONDS (25.2-36.5)
[2024-01-26 08:53] LABS: CHLORIDE 100 mmol/L (98-107); POTASSIUM 4.4 mmol/L (3.5-5.1); SODIUM 134 mmol/L (136-145)
[2024-01-26 08:56] LABS: ANION GAP 9 mmol/L (4-13); CO2 25 mmol/L (21-32); GLUCOSE,RANDOM 218 mg/dL (74-106)
[2024-01-26 08:59] LABS: SGOT/AST 179 U/L (15-37); SGPT/ALT 119 U/L (13-61)
[2024-01-26 09:00] LABS: BILIRUBIN,TOTAL 7.6 mg/dL (0.2-1); TOT PROT 7.7 g/dl (6.4-8.2)
[2024-01-26 09:02] LABS: ALK PHOS 589 U/L (45-117)
[2024-01-26] MEDS ORDERED: SODIUM CHLORIDE 250 ML IV PRN (12:56)
[2024-01-26 13:10] LABS: BILIRUBIN,DIRECT 5.3 mg/dL (0.0-0.2)
[2024-01-26] MEDS ORDERED: LACTATED RINGERS SOLUTION 1,000 ML/1,000 ML INFUS.BAG IV SCH (13:45)
[2024-01-26] MEDS ORDERED: HYDROmorphone HCL 2 MG TABLET PO PRN (13:48)
[2024-01-26] MEDS: PIPERACILLIN/TAZOB 4.5 GM 4.5 GM in DEXTROSE 5%-WATER 100 ML IVPB ONE (14:41)
[2024-01-26] MEDS ORDERED: metoPROLOL SUCCINATE 25 MG TAB.SR.24H (FP) PO ONE (14:44)
[2024-01-26] MEDS ORDERED: PIPERACILLIN/TAZOB 2.25 GM 2.25 GM/50 ML BAG IVPB ONE (14:45)
[2024-01-26] MEDS: metoPROLOL SUCCINATE 25 MG TAB.SR.24H (FP) PO SCH (14:50)
[2024-01-26] MEDS: PIPERACILLIN/TAZOB 2.25 GM 2.25 GM in DEXTROSE 5%-WATER - 50 ML IVPB SCH (14:57)
[2024-01-26 16:46] LABS: BASO % 0.7 % (0-2.0); EOS % 1.1 % (0-4.5); HEMATOCRIT 29.3 % (35.4-49); MCH 32.2 pg (25.7-33.7); MCHC 34.1 g/dl (32.0-35.9); MEAN CELL VOLUME 94.6 fl (80-96); MEAN PLT VOLUME 8.8 fl (7.5-11.1); MONO % 12.6 % (3.8-10.2); NEUT % 81.6 % (42.8-82.8); PLATELET COUNT 89 10^3/uL (134-434); RDW 15.5 % (11.9-15.9); WHITE BLOOD COUNT 6.3 K/mm3 (4.0-10.0)
[2024-01-26 16:57] LABS: INR 1.14 (0.83-1.09); PROTHROMBIN TIME (PATIENT) 13.2 SEC (9.7-13.0)
[2024-01-26 17:06] LABS: CHLORIDE 102 mmol/L (98-107); POTASSIUM 4.2 mmol/L (3.5-5.1); SODIUM 134 mmol/L (136-145)
[2024-01-26 17:08] LABS: CALCIUM 8.2 mg/dL (8.5-10.1)
[2024-01-26 17:09] LABS: ALBUMIN 2.8 g/dl (3.4-5.0); ANION GAP 13 mmol/L (4-13); BLOOD UREA NITROGEN 53.6 mg/dL (7-18); CO2 18 mmol/L (21-32); GLUCOSE,RANDOM 254 mg/dL (74-106)
[2024-01-26 17:12] LABS: SGOT/AST 161 U/L (15-37); SGPT/ALT 111 U/L (13-61)
[2024-01-26 17:13] LABS: BILIRUBIN,TOTAL 7.4 mg/dL (0.2-1)
[2024-01-26 17:14] LABS: TOT PROT 7.2 g/dl (6.4-8.2)
[2024-01-26 17:21] LABS: ALK PHOS 531 U/L (45-117); CREATININE 7.7 mg/dL (0.55-1.3)
[2024-01-26] MEDS: LACTATED RINGERS SOLUTION 1,000 ML/1,000 ML INFUS.BAG IV SCH (19:36)
[2024-01-26] MEDS: amLODIPine BESYLATE 5 MG TABLET (FP) PO ONE (23:54)
[2024-01-27 01:00] VITALS: BMI 23.6
[2024-01-27] MEDS: amLODIPine BESYLATE 5 MG TABLET (FP) PO SCH (09:15)
[2024-01-27 09:17] VITALS: RESP 18
[2024-01-27 09:32] LABS: ALBUMIN 2.6 g/dl (3.4-5.0); AMYLASE 254 U/L (25-115); ANION GAP 10 mmol/L (4-13); BILIRUBIN,DIRECT 6.4 mg/dL (0.0-0.2); BLOOD UREA NITROGEN 33.3 mg/dL (7-18); CALCIUM 8.7 mg/dL (8.5-10.1); CHLORIDE 102 mmol/L (98-107); CO2 27 mmol/L (21-32); CREATININE 5.9 mg/dL (0.55-1.3); MAGNESIUM 2.5 mg/dL (1.8-2.4); PHOSPHOROUS 3.8 mg/dL (2.5-4.9); POTASSIUM 3.7 mmol/L (3.5-5.1); SGOT/AST 177 U/L (15-37); SGPT/ALT 112 U/L (13-61); SODIUM 139 mmol/L (136-145)
[2024-01-27 09:33] LABS: BILIRUBIN,TOTAL 8.3 mg/dL (0.2-1); TOT PROT 7.1 g/dl (6.4-8.2)
[2024-01-27 09:34] LABS: ALK PHOS 531 U/L (45-117); GLUCOSE,RANDOM 41 mg/dL (74-106); IRON SERUM 27 ug/dL (50-175); TOTAL IRON BINDING CAPACITY 298 ug/dL (250-450)
[2024-01-27] MEDS ORDERED: DEXTROSE 50%-WATER 25 GM/50 ML DISP.SYRIN ONE (09:45)
[2024-01-27] MEDS ORDERED: DEXTROSE 50%-WATER - 25 GM/50 ML VIAL IVPUSH ONE (09:53)
[2024-01-27] MEDS: DEXTROSE 50%-WATER 25 GM/50 ML DISP.SYRIN IVPUSH ONE (10:48)
[2024-01-28] MEDS ORDERED: SODIUM CHLORIDE 250 ML IV PRN (09:06)
[2024-01-28 13:56] LABS: HEMATOCRIT 27.4 % (35.4-49); HEMOGLOBIN 9.2 GM/dL (11.7-16.9); MCH 31.8 pg (25.7-33.7); MCHC 33.7 g/dl (32.0-35.9); MEAN CELL VOLUME 94.4 fl (80-96); MEAN PLT VOLUME 8.9 fl (7.5-11.1); PLATELET COUNT 82 10^3/uL (134-434); RDW 15.7 % (11.9-15.9); WHITE BLOOD COUNT 5.8 K/mm3 (4.0-10.0)
[2024-01-28 14:11] LABS: CHLORIDE 97 mmol/L (98-107); POTASSIUM 3.9 mmol/L (3.5-5.1); SODIUM 132 mmol/L (136-145)
[2024-01-28 14:13] LABS: CALCIUM 7.9 mg/dL (8.5-10.1)
[2024-01-28 14:14] LABS: ALBUMIN 2.4 g/dl (3.4-5.0); ANION GAP 11 mmol/L (4-13); BLOOD UREA NITROGEN 45.5 mg/dL (7-18); CO2 24 mmol/L (21-32); GLUCOSE,RANDOM 159 mg/dL (74-106)
[2024-01-28 14:17] LABS: SGOT/AST 199 U/L (15-37); SGPT/ALT 106 U/L (13-61)
[2024-01-28 14:19] LABS: BILIRUBIN,TOTAL 8.9 mg/dL (0.2-1); TOT PROT 6.7 g/dl (6.4-8.2)
[2024-01-28 14:20] LABS: ALK PHOS 560 U/L (45-117)
[2024-01-28 14:23] LABS: CREATININE 8.3 mg/dL (0.55-1.3)
[2024-01-28] MEDS: PIPERACILLIN/TAZOB 2.25 GM 2.25 GM in DEXTROSE 5%-WATER - 50 ML IVPB SCH (16:59)
[2024-01-28 17:19] VITALS: BP 155/66; PULSE 80; TEMP 98.2
== END 2024-01-28 18:20 | disposition short-term general hospital (02) | DRG 435 ==
LOC: JER 07:03 → JERBED 10:50 → OBSVTOIN 15:51 → J8W 22:57
PROVIDERS: ADMIT Internal Medicine; ATTEND Nurse Practitioner Family
PROC: 5A1D70Z Performance of Urinary Filtration, Intermittent, Less than 6 Hours Per Day (ICD-10-PCS; principal; 2024-01-26)
PROC: 5A1D70Z Performance of Urinary Filtration, Intermittent, Less than 6 Hours Per Day (ICD-10-PCS; 2024-01-28)
DX: C22.1 Intrahepatic bile duct carcinoma (principal); K85.90 Acute pancreatitis without necrosis or infection, unspecified; N18.6 End stage renal disease; I13.2 Hypertensive heart and chronic kidney disease with heart failure and with stage 5 chronic kidney disease, or end stage renal disease; I50.22 Chronic systolic (congestive) heart failure; E78.00 Pure hypercholesterolemia, unspecified; J44.9 Chronic obstructive pulmonary disease, unspecified; E11.9 Type 2 diabetes mellitus without complications; I10 Essential (primary) hypertension; I25.10 Atherosclerotic heart disease of native coronary artery without angina pectoris; I25.2 Old myocardial infarction; N40.0 Benign prostatic hyperplasia without lower urinary tract symptoms; E80.6 Other disorders of bilirubin metabolism; N25.0 Renal osteodystrophy; D64.9 Anemia, unspecified; R79.89 Other specified abnormal findings of blood chemistry; E11.22 Type 2 diabetes mellitus with diabetic chronic kidney disease; Z95.5 Presence of coronary angioplasty implant and graft; Z99.2 Dependence on renal dialysis
CPT/HCPCS: 0241U-QW; 36415; 71046-TC-FY; 74181-TC; 76705-TC; 80053; 80076; 82105; 82140; 82150; 82248; 82728; 82962; 83540; 83550; 83690; 83735; 84100; 84484; 85025; 85027; 85610; 85730; 86140; 86301; 86704; 87340; 87517; 87522; 93005; 93010; 99285-25; G0378